=== PATIENT | female | born 1945 | race Caucasian/White ===

== ENCOUNTER 2022-02-05 00:15 | Inpatient (IN) | payer MEDICARE, SELFPAY ==
[2022-02-05] VITALS (32 sets, daily range): BP systolic 88–140; BP diastolic 42–82; PULSE 81–117; RESP 16–147; TEMP 36.6–37.2; O2SAT 94–99; BMI 20.6; BMI 21.1
--- NOTE | 2022-02-05 00:14 | EKG12_ITS ---
Test Reason : admit ekg Blood Pressure : / mmHG Vent. Rate : 096 BPM Atrial Rate : 394 BPM P-R Int : 000 ms QRS Dur : 066 ms QT Int : 342 ms P-R-T Axes : 000 -19 013 degrees QTc Int : 432 ms Atrial flutter with variable A-V block Anterior infarct , age undetermined ,CANNONT BE EXCLUDED Abnormal ECG SOMATIC/MOTION ARTIFACT Confirmed by DEMETRIO SETHI, CHRISTOPHER ([id number]), city editor SCOTT GARNICA ([id number]) on 02/06/2022 8:29:14 AM Referred By: Confirmed By:CHRISTOPHER ATKINSON MD
--- NOTE | 2022-02-05 00:19 | ECHOD_ITS ---
Reason For Study: AFIB/FLUTTER Procedure This was a 2D Doppler, Color Flow transthoracic echocardiogram. The study was technically difficult. Due to patient pain levels, left humerous fracture, unable to reposition for optimal scanning. PT was very uncomfortable. Exam performed portable in patient room. Left Ventricle Normal left ventricle. The estimated ejection fraction is 50-55 %. Right Ventricle Normal right ventricle. Normal systolic function. Atria The left atrium is moderately enlarged. Normal right atrium. Mitral Valve The mitral valve is structurally normal. No prolapse or stenosis seen. Tricuspid Valve Normal tricuspid valve. Aortic Valve Moderate diffuse aortic valve calcification. Mild (1+) aortic valve insufficiency. Pulmonic Valve The pulmonic valve is not well visualized. Great Vessels Normal aortic root. Pericardium/Pleural No pericardial effusion. MMode/2D Measurements & Calculations LVIDd: 4.5 cm IVSd: 1.1 cm Ao root diam: 3.3 cm LVIDs: 2.8 cm LVPWd: 1.3 cm RVDd: 3.4 cm FS: 36.7 % LAV(MOD-bp): 91.5 ml LVAd ap4: 26.3 cm2 LVAd ap2: 25.0 cm2 LAV(MOD-bp) Indexed: 54.1 ml/m2 LVLd ap4: 7.3 cm LVLd ap2: 7.7 cm LAV(MOD-sp2): 91.9 ml EDV(MOD-sp4): 79.1 ml EDV(MOD-sp2): 71.2 ml LAV(MOD-sp4): 91.1 ml EDV(sp4-el): 80.0 ml EDV(sp2-el): 68.8 ml LVAs ap4: 17.4 cm2 LVAs ap2: 16.7 cm2 LVLs ap4: 6.5 cm LVLs ap2: 7.1 cm ESV(MOD-sp4): 40.4 ml ESV(MOD-sp2): 34.1 ml ESV(sp4-el): 39.4 ml ESV(sp2-el): 33.2 ml EF(MOD-sp4): 48.9 % EF(MOD-sp2): 52.2 % EF(sp4-el): 50.7 % SV(MOD-sp4): 38.6 ml SV(MOD-sp2): 37.2 ml SV(sp4-el): 40.6 ml LA dimension(2D): 4.9 cm LA A4 area: 26.1 cm2 RA A4 area: 14.9 cm2 Doppler Measurements & Calculations MV E max sherly: 101.3 cm/sec Ao V2 max: 183.6 cm/sec LV V1 max: 86.6 cm/sec Ao max P.5 mmHg LV V1 max P.0 mmHg PA V2 max: 96.7 cm/sec TR max sheryl: 267.4 cm/sec TR max P.6 mmHg ECHO/Echo Complete Interpretation Summary The estimated ejection fraction is 50-55 %. Normal LV systolic function Mild AI Ordering Physician: Violet Patrick Referring Physician: Michael Phillips Performed By: Heather Alexandra RDCS, RVT
--- NOTE | 2022-02-05 00:20 | HP.PCM.HOS_ITS ---
HPI - General General Date of Admission: 02/05/22 Date of Service: 02/05/22 Chief Complaint: Fall, hip fracture- 1 day HPI Narrative CRISPIN MARSHALL, is a 76 F who presents above. Patient has past medical history of dementia with behavioral disturbances, osteoporosis, atrial fibrillation, on Coumadin, history of recurrent falls, who lives alone and has had family checking on her frequently. Patient recently had a fall about 2 months ago and fractured her left humerus. Patient at baseline is alert oriented to self. She is a direct transfer from [facility] ED. Patient is established with [facility] and was recommended to come to the [facility]. Patient had stated to the emergency physician in [facility] that she was trying to put on her nightgown when she lost her balance and fell. She had complained of pain all over her body. She was found to be in A. fib with RVR, confirmed with EKG. She received Cardizem bolus and was started on a drip. Heart rate was still uncontrolled. She received a second dose of Cardizem and Cardizem drip was continued. Patient stated that she has severe pain. Her vitals here show blood pressure 129/77, heart rate 101, respiratory 16, temperature 97.8 F, oxygen sat is 97% on room air. Blood work in [facility] showed WBC count of 11.1, Hb 12.7, platelet count 227, INR was 3.4, UA was unremarkable. Glucose 127, sodium was 145, potassium 4.5, chloride 107, bicarbonate 25, BUN 19, creatinine 1.20, previous creatinine was 1.13 calcium was 9.1, complement was 3.4, LFTs unremarkable lactic acid was 4.1, troponins were 62. CT of the abdomen and pelvis showed a subcapital comminuted superior laterally displaced fracture of the left femoral neck. Age-indeterminate mild height loss of L2 vertebral body without retropulsion or involvement of posterior elements. 1.8 cm enhancing mass in the right hepatic lobe of the liver. CT of the thorax, cervical spine, head were unremarkable. X-ray of the tibia-fibula, left forearm, left humerus and hand were also unremarkable [facility] Medical History (Updated 02/05/22 @ 01:[address] Violet Patrick MD) Chronic atrial fibrillation Dementia Hyperlipidemia Osteoporosis Allergy/AdvReac Type Severity Reaction Status Date / Time meloxicam [From Mobic] Allergy PT UNSURE Verified 02/05/22 00:18 OF REACTION amoxicillin [From Augmentin] AdvReac Other Verified 02/05/22 00:18 clavulanic acid AdvReac Other Verified 02/05/22 00:18 [From Augmentin] unable to obtain Surgical History (Updated 02/05/22 @ 01:[address] Violet Patrick MD) H/O bilateral cataract extraction H/O bilateral salpingo-oophorectomy History of breast biopsy History of dilatation and curettage History of hysterectomy History of right hip replacement History of tonsillectomy Social History (Updated 02/05/22 @ 01:[address] Violet Patrick MD) household members: none housing: house Smoking Status: Never smoker alcohol intake: never substance use type: does not use ROS Review of Systems ROS Unobtainable: due to encephalopathy Physical Exam Narrative Physical exam: General: Alert, Oriented to self, Cooperative, in moderate pain, restless HEENT: Atraumatic Oral: Moist Mucosa Neck: Supple Lungs: Diminished to auscultation Cardiovascular: HS I+II, irregular, tachycardic Abdomen: Bowel Sounds Present, Soft, Non Tender Extremities: No edema, tenderness over the left hip Skin: Multiple bruises all over the body Neurological: Grossly intact Psych/Mental Status: Appropriate Assessment & Plan Assessment/Plan (1) Subcapital fracture of left hip: (2) Atrial fibrillation with RVR: PLAN: Plan 1. Acute subcapital fracture of the femoral neck of the left hip, mechanical, traumatic In the setting of an elderly patient with history of osteoporosis, recurrent falls Admit to PCU, pain control, orthopedic consult PT/OT to evaluate and treat 2. A. fib with RVR patient known history of chronic atrial fibrillation Patient remains on Cardizem drip INR in [facility] was 3.4 We will check 2D echo, repeat INR, continue Cardizem drip, cardiology consult for preop cardiac risk stratification Check TSH, Mg 3. Suspected protein calorie malnutrition, operational risk consultant consulted 4. Dementia with behavioral disturbances, continue on Zyprexa Check QTC on EKG 5. Osteoporosis, continue alendronate, patient will need outpatient follow-up with endocrinology 6. Hyperlipidemia, continue statin 7. DVT prophylaxis?SCDs for now in anticipation of surgery I discussed and explained in details the various types of CODE STATUS-full code, DNR CCA, DNR CC. Patient's son who is her POA stated that patient will be DNR DO NOT RESUSCITATE, DO NOT INTUBATE. Time spent discussing CODE STATUS 17 minutes Charges/Coding Visit Charges Inpatient E&M: 21788 Init Hosp L3 Procedures Hospitalists Procedures: 98648 Advncd Care Plan 30 Min
--- NOTE | 2022-02-05 00:38 | NURSING ---
Spoke to mary Rosario states patient does not take Eliquis
[2022-02-05] MEDS: oxyCODONE 5 MG Tablet PO ×2 (01:00→05:34)
[2022-02-05] MEDS: Acetaminophen 500 MG Tablet 1000 MG PO ×2 (01:00→05:34)
[2022-02-05] MEDS: 0.9% Normal Saline 1,000 ML 75 ML IV ×2 (01:00→20:30)
--- NOTE | 2022-02-05 01:06 | EKG12_ITS ---
Test Reason : admit ekg Blood Pressure : / mmHG Vent. Rate : 107 BPM Atrial Rate : 000 BPM P-R Int : 000 ms QRS Dur : 062 ms QT Int : 324 ms P-R-T Axes : 000 -24 003 degrees QTc Int : 432 ms Somatic/Motion Artifact Atrial fibrillation with rapid ventricular response Septal infarct, age undetermined, cannot be excluded Abnormal ECG Confirmed by DEMETRIO SETHI, CHRISTOPHER ([id number]), production editor BARRY REYES ([id number]) on 02/08/2022 11:30:44 AM Referred By: Confirmed By:CHRISTOPHER ATKINSON MD
[2022-02-05 01:59] LABS: ALB/GLOB Ratio 1.1 RATIO (0.9-2.4); AST(SGOT) 36 U/L (15-37); Alanine Aminotransfer ALT/SGPT 16 U/L (13-56); Albumin, Serum 2.9 g/dL (3.2-5.0); Alkaline Phosphatase 80 U/L (45-117); Anion Gap 8 (5-15); BUN 18 mg/dL (7-18); BUN/Creat Ratio 20.5 RATIO (10-20); Calcium,Total 8.2 mg/dL (8.5-10.1); Chloride 114 mmol/L (98-107); Creatinine, Serum 0.88 mg/dL (0.55-1.02); EST Glomerular Filtration Rate 66 mL/min (>60); Est Glom Filt Rate - Afr Amer 80 mL/min (>60); Estimated Creatinine Clearance 50.99 ml/min; Globulin 2.6 g/dL (2.2-4.2); Glucose 145 mg/dL (74-106); Protein, Total 5.5 g/dL (6.4-8.2); Sodium Level 145 mmol/L (136-145)
[2022-02-05 02:01] LABS: Troponin-I HS 108 pg/mL (3.0-54.0)
[2022-02-05 02:04] LABS: Vitamin D,25 Hydroxy 18.8 ng/mL
[2022-02-05 04:14] LABS: Prothrombin Time (Protime)PT. 31.2 SECONDS (11.7-14.9)
[2022-02-05 04:17] LABS: Absolute Lymphocyte Count 0.96 X10^3/uL (0.83-4.51); Absolute Neutrophil Count 5.9 X10^3/uL (2.0-7.7); Basophil# 0.02 X10^3/uL; Basophil% 0.3 % (0-1); Hematocrit 30.5 % (37-47); Hemoglobin 10.1 g/dL (12.0-15.0); Lymphocyte # 0.96 X10^3/ul (0.83-4.51); Lymphocyte % 12.4 % (19-41); Mean Corp Hgb Conc 33.1 g/dL (32-36); Mean Corpuscular Hgb 33.4 pg (27.0-32.0); Mean Platelet Vol. 10.8 fl (6.2-12.0); Monocyte# 0.87 X10^3/uL; Monocyte% 11.2 % (0-10); NRBC Flagged by Analyzer 0 % (0-5); Neutrophil # 5.88 X10^3/uL (2.7-7.7); Neutrophil % 75.8 % (47-70); Platelet Count 168 K/mm3 (150-450); RBC Distribution Width CV 13.9 % (11.6-14.6); RBC Distribution Width SD 50.7 fl (35.1-43.9); Red Blood Count 3.02 M/mm3 (4.2-5.4); White Blood Count 7.8 K/mm3 (4.4-11.0)
[2022-02-05 04:31] LABS: ALB/GLOB Ratio 1.2 RATIO (0.9-2.4); AST(SGOT) 40 U/L (15-37); Alanine Aminotransfer ALT/SGPT 17 U/L (13-56); Albumin, Serum 2.7 g/dL (3.2-5.0); Alkaline Phosphatase 77 U/L (45-117); Anion Gap 7 (5-15); BUN 17 mg/dL (7-18); BUN/Creat Ratio 19.6 RATIO (10-20); Calcium,Total 7.7 mg/dL (8.5-10.1); Chloride 113 mmol/L (98-107); Creatinine, Serum 0.87 mg/dL (0.55-1.02); EST Glomerular Filtration Rate 67 mL/min (>60); Est Glom Filt Rate - Afr Amer 81 mL/min (>60); Estimated Creatinine Clearance 51.83 ml/min; Globulin 2.2 g/dL (2.2-4.2); Glucose 136 mg/dL (74-106); Potassium 4.1 mmol/L (3.5-5.1); Protein, Total 4.9 g/dL (6.4-8.2); Sodium Level 145 mmol/L (136-145)
[2022-02-05 04:43] LABS: Troponin-I HS 129 pg/mL (3.0-54.0)
[2022-02-05] MEDS: 0.9% Saline Lock 10 ML Syringe IV ×2 (05:34→06:45)
[2022-02-05 05:57] LABS: CPK Total, Creatine Kinase 857 U/L (26-192)
--- NOTE | 2022-02-05 07:41 | PCM.CONS.C ---
Assessment & Plan Assessment/Plan (1) Atrial fibrillation with RVR: PLAN: Pt remains in Afib. At home she is not on any rate medications. She remains on IV cardizem. May consider switching her over to PO. Will need to monitor BP. Coumadin is currently on hold as her INR was supratheraputic with anticipation of upcoming surgery. (2) Elevated troponin: PLAN: With pts elevated troponin, it has trended 108/129/129. EF is normal at 50-55%. She would like to obtain an echocardiogram. This is pending. Third troponin is pending. Suspect that this may be a type II event. HPI Consult Data Date of Consult: 02/14/22 HPI Narrative HPI Narrative: CRISPIN MARSHALL, is a 76 F who we were asked to consult on for a pre-operative clearance. Yesterday pt was was seen at [facility] ER for a fall. She fractured her left hip. Since she was established with [facility] she was transferred to [facility]. Pt does have a hx of Afib and is on coumadin. Yesterday she was noted to be in Afib with RVR. She received a Cardizem bolus and was started on a drip. Initial troponin was 67 at [place], it has since trended to 108, 129. Her Hgb is 10. Yesterday her INR was 3.4, today it is 3.0. Pt is a poor historian. Per Nurse she lives at home and notes son is trying to get her into a NH that her resides in. [facility] Medical History Chronic atrial fibrillation Dementia Hyperlipidemia Osteoporosis Vitamin D deficiency Home Medications alendronate 70 mg tablet 70 mg PO QWEEK bones 02/05/22 [History Last Taken Unknown] atorvastatin 20 mg tablet 20 mg PO DAILY cholesterol 02/05/22 [History Last Taken Unknown] fluticasone propionate 50 mcg/actuation nasal spray,suspension 2 spray intranasal DAILY PRN Congestion 02/05/22 [History Last Taken Unknown] warfarin 2 mg tablet 2 mg PO DAILY blood thinner 02/05/22 [History Last Taken Unknown] acetaminophen 325 mg capsule (Tylenol) 650 mg PO Q4H PRN Pain 1-10/fever 30 days #10 caps 02/13/22 [Rx Last Taken Unknown] amiodarone 200 mg tablet 200 mg PO BID heart 02/13/22 [History Last Taken Unknown] amiodarone 200 mg tablet 200 mg PO DAILY heart 02/13/22 [History Last Taken Unknown] ergocalciferol (vitamin D2) 1,250 mcg (50,000 unit) capsule (Vitamin D2) 1,250 mcg PO Q7D bone 02/13/22 [History Last Taken Unknown] metoprolol tartrate 100 mg tablet 100 mg PO BID BP 02/13/22 [History Last Taken Unknown] olanzapine 10 mg tablet 20 mg PO HS Check with primary doctor 02/13/22 [History Last Taken Unknown] pantoprazole 40 mg tablet,delayed release 40 mg PO DAILY reflux 02/13/22 [History Last Taken Unknown] sennosides 8.6 mg-docusate sodium 50 mg tablet (Stool Softener-Stimulant Laxative) 2 tab PO BID stool softeners 02/13/22 [History Last Taken Unknown] warfarin 1 mg tablet (Jantoven) 1 mg PO 1700 blood thinner 02/13/22 [History Last Taken Unknown] Allergy/AdvReac Type Severity Reaction Status Date / Time meloxicam [From Mobic] Allergy PT UNSURE Verified 02/05/22 00:18 OF REACTION amoxicillin [From Augmentin] AdvReac Other Verified 02/05/22 00:18 clavulanic acid AdvReac Other Verified 02/05/22 00:18 [From Augmentin] Family History no significant family his Surgical History H/O bilateral cataract extraction H/O bilateral salpingo-oophorectomy History of breast biopsy History of dilatation and curettage History of hysterectomy History of right hip replacement History of tonsillectomy Social History household members: none housing: house Smoking Status: Never smoker alcohol intake: never substance use type: does not use Physical Exam Const alert and no apparent distress General Appearance: frail Orientation / Consciousness: oriented to person HEENT normocephalic, head/scalp atraumatic, hearing grossly normal bilaterally, external ears normal, external nose normal and moist oral mucous membranes Eyes PERRL, EOMs intact bilaterally, conjunctivae normal and no scleral icterus Neck no lymphadenopathy, supple and no JVD Resp clear to auscultation bilaterally Cardio regular rate, S1 normal heart sound, S2 normal heart sound, no murmurs, no rub, no gallops, no clicks, no JVD and peripheral pulses 2+ throughout Rhythm: abnormal rhythm irregularly irregular GI normal to inspection, nondistended, normoactive bowel sounds, soft to palpation, non-tender and non-distended Extremity normal to inspection, normal capillary refill, no clubbing, cyanosis or edema and no pedal edema Extremity Narrative: right arm in cast Neuro CN's II-XII intact bilaterally, moves all extremities and no focal motor deficits Psych cooperative Risk Stratification Risk Stratification Applicable: No Objective Data Vital Signs: Vital Signs Temp Pulse Resp BP Pulse Ox O2 Del Method 98.8 F 86 18 97/54 L 95 Room Air 02/05/22 06:00 02/05/22 07:00 02/05/22 07:00 02/05/22 07:00 02/05/22 06:00 02/05/22 06:00 Oxygen Delivery Method Room Air Weight: 138 lb 3.677 oz Body Mass Index (BMI) 20.6 Intake & Output: Intake and Output for Last 24 Hours 02/03/22 02/04/22 02/05/22 23:59 23:59 23:59 Intake Total 446 / 446 Output Total 250 / 250 Balance 196 / 196 Lab / Micro Data Result Diagrams: 02/13/22 05:15 02/13/22 05:15 Labs: Laboratory Results - last 24 hr 02/05/22 01:27: Sodium 145, Potassium 4.0, Chloride 114 H, Carbon Dioxide 23.0, Anion Gap 8, BUN 18, Creatinine 0.88, Estim Creat Clear Calc 50.99, Est GFR (MDRD) Af Amer 80, Est GFR (MDRD) Non-Af 66, BUN/Creatinine Ratio 20.5 H, Glucose 145 H, Calcium 8.2 L, Total Bilirubin 1.30 H, AST 36, ALT 16, Alkaline Phosphatase 80, Total Protein 5.5 L, Albumin 2.9 L, Globulin 2.6, Albumin/Globulin Ratio 1.1 02/05/22 01:27: Vitamin D 25-Hydroxy 18.8 02/05/22 01:27: Troponin I High Sens 108 H 02/05/22 03:48: WBC 7.8, RBC 3.02 L, Hgb 10.1 L, Hct 30.5 L, MCV 101.0 H, MCH 33.4 H, MCHC 33.1, RDW Std Deviation 50.7 H, RDW Coeff of Dorota 13.9, Plt Count 168, MPV 10.8, Immature Gran % (Auto) 0.300, Neut % (Auto) 75.8 H, Lymph % (Auto) 12.4 L, [place] % (Auto) 11.2 H, Eos % (Auto) 0.0, Baso % (Auto) 0.3, Absolute Neuts (auto) 5.9, Absolute Lymphs (auto) 0.96, Nucleated RBC % 0 02/05/22 03:48: Sodium 145, Potassium 4.1, Chloride 113 H, Carbon Dioxide 25.0, Anion Gap 7, BUN 17, Creatinine 0.87, Estim Creat Clear Calc 51.83, Est GFR (MDRD) Af Amer 81, Est GFR (MDRD) Non-Af 67, BUN/Creatinine Ratio 19.6, Glucose 136 H, Calcium 7.7 L, Total Bilirubin 1.20 H, AST 40 H, ALT 17, Alkaline Phosphatase 77, Total Protein 4.9 L, Albumin 2.7 L, Globulin 2.2, Albumin/Globulin Ratio 1.2 02/05/22 03:48: PT 31.2 H, INR 3.0 02/05/22 03:48: Total Creatine Kinase 857 H 02/05/22 03:48: Troponin I High Sens 129 H* 02/05/22 03:48: Blood Type A POSITIVE, Antibody Screen NEGATIVE Micro: Microbiology 02/05/22 01:10 Nasal Secretion SARS-CoV-2 Antigen (Rapid) - Final Cardiology Labs/Tests 02/05/22 01:27: Sodium 145, Potassium 4.0, Chloride 114 H, Carbon Dioxide 23.0, Anion Gap 8, BUN 18, Creatinine 0.88, Est GFR (MDRD) Af Amer 80, Est GFR (MDRD) Non-Af 66, BUN/Creatinine Ratio 20.5 H, Glucose 145 H, Calcium 8.2 L, Total Bilirubin 1.30 H 02/05/22 03:48: WBC 7.8, RBC 3.02 L, Hgb 10.1 L, Hct 30.5 L, MCV 101.0 H, MCH 33.4 H, MCHC 33.1, Plt Count 168, MPV 10.8, Immature Gran % (Auto) 0.300, Neut % (Auto) 75.8 H, Lymph % (Auto) 12.4 L, [place] % (Auto) 11.2 H, Eos % (Auto) 0.0, Baso % (Auto) 0.3, Absolute Neuts (auto) 5.9, Nucleated RBC % 0 02/05/22 03:48: Sodium 145, Potassium 4.1, Chloride 113 H, Carbon Dioxide 25.0, Anion Gap 7, BUN 17, Creatinine 0.87, Est GFR (MDRD) Af Amer 81, Est GFR (MDRD) Non-Af 67, BUN/Creatinine Ratio 19.6, Glucose 136 H, Calcium 7.7 L, Total Bilirubin 1.20 H 02/05/22 03:48: PT 31.2 H, INR 3.0 Rhythm: Afib HR 86
--- NOTE | 2022-02-05 08:00 | HIP_PTH ---
PATIENT: CRISPIN MARSHALL LOC: [facility] U#:[id number] AGE/SX: 76/F ROOM: [facility] RE02/05/[address]: Dr. Sierra Duran MD : 1945 BED: 1 DIS: 02/13/2022 SPEC #: [id number] RECD: 02/08/22 10:57 STATUS: RANDY REQ #: [id number] PHIL: 02/05/22 08:[address]: Tae Potter DEPT: SURGICAL PATHOLOGY RECD BY: Renee Saunders ENTERED: 02/08/22 13:04 SP TYPE: TOTAL HIP OTHR DR: Garima Lyons, MD Dr. Violet Martel Dr., MD Dr. Arshad Rehan, MD Dr. Brendan Duffy, MD Dr. Bhava Reddy, MD Dr. Cyril Ofori, MD Dr. Emile Daoud, MD Dr. Eric Jopperi, DO Dr. Eric Lo, MD Dr. Farouk Belal, MD Dr. Kathryn Lee, DO Dr. Mikhail Kirnus, MD Dr. Mihail Paxos, MD Dr. Nagapradee Nagajothi, MD Dr. Paul Moodispaw, MD Dr. Sharan Rufus, MD Dr. Steven Widmer, MD Dr. Wisam Martini, MD John H Roof, JANNETC INOCENCIA Lopez PA Tissues: Hip, NOS Procedures: Decalcification bone/plaque Surgery Specimen Level IV Comments: @ Ordering doctor for DEC edited from to @ by RGOOD at 02/08/22 1418 @ Ordering doctor for SUIV edited from to @ by CARLTON at 02/08/22 1418 @ Submitting doctor edited from to @ stephon VINCENT at 02/08/22 1418 HEADER OPERATION: Left hip hemiarthroplasty PRE-OP DIAGNOSIS: Subcapital fracture of left hip TISSUE SUBMITTED: Bone and tissue left hip MICROSCOPIC DIAGNOSIS Bone and tissue of left hip, total hip resection: Consistent with organizing fracture callus. Mild synovial hyperplasia. Focal degenerative changes of articular surface. AM:cuco 02/11/2022 MICROSCOPIC DESCRIPTION Slides are reviewed. GROSS DESCRIPTION Received is one container labeled with the patient's name and designated bone and tissue left hip. The specimen consists of a yin femoral head measuring 4 x 4.5 x 3 cm. The articular surface shows focal erosion. Resection margin is irregular and hemorrhagic. Also attached to the femoral head is a piece of soft tissue measuring 2.5 x 1.5 x 0.3 cm. Elastic Attacher Overlock sections are submitted in three cassettes as follows: 1 - soft tissue, 2 & 3 - femoral head after decalcification. / SJ:cuco 02/08/2022 TC:5 CPT: 74852, 17999
--- NOTE | 2022-02-05 08:05 | RAD_ITS ---
INDICATION: Left hip fracture EXAMINATION/TECHNIQUE: X-RAY - LEFT XR Hip Unilateral with Pelvis when performed; 2-3 Views 4 VIEWS COMPARISON: 02/05/2022. FINDINGS: Fracture of the proximal left femur is visualized either subcapital or transcervical neck fracture superior displacement of the distal fracture fragment is visualized, no evidence of lucency in the intertrochanteric region is seen. Increased density visualized within the proximal femoral metaphysis. No evidence of comminuted bone fragments in the adjacent soft tissues. No evidence of other fractures of the pelvis. Degenerative bone changes are seen. Unremarkable right hip prosthesis. RAD/HIP, UNI W/ Pelvis 2-3 Views IMPRESSION: Fracture of the proximal left femur either subcapital or transcervical neck fracture Electronically Signed: Roman Lee MD at 8:43 EDT ,
[2022-02-05 08:16] LABS: Thyroid Stim Hormone (TSH) 2.29 uIU/mL (0.358-3.74); Troponin-I HS 129 pg/mL (3.0-54.0)
[2022-02-05 09:41] LABS: International Normalized Ratio 1.4; Prothrombin Time (Protime)PT. 16.6 SECONDS (11.7-14.9)
--- NOTE | 2022-02-05 10:41 | PN.HOSP_ITS ---
Subjective Subjective Patient seen and examined. Patient lying in bed undergoing echocardiogram. Patient tentatively scheduled for surgery later today however awaiting cardiac clearance. Objective Data Objective Data Vital Signs: Vital Signs Temp Pulse Resp BP Pulse Ox O2 Del Method 98.8 F 86 18 97/54 L 95 Room Air 02/05/22 06:00 02/05/22 07:00 02/05/22 07:00 02/05/22 07:00 02/05/22 06:00 02/05/22 06:00 Oxygen Delivery Method Room Air Weight: 138 lb 3.677 oz Body Mass Index (BMI) 20.6 Intake & Output: Intake and Output for Last 24 Hours 02/03/22 02/04/22 02/05/22 23:59 23:59 23:59 Intake Total 557 / 557 Output Total 250 / 250 Balance 307 / 307 Lab / Micro Data Result Diagrams: 02/05/22 03:48 02/05/22 03:48 Labs: Laboratory Results - last 24 hr 02/05/22 01:27: Sodium 145, Potassium 4.0, Chloride 114 H, Carbon Dioxide 23.0, Anion Gap 8, BUN 18, Creatinine 0.88, Estim Creat Clear Calc 50.99, Est GFR (MDRD) Af Amer 80, Est GFR (MDRD) Non-Af 66, BUN/Creatinine Ratio 20.5 H, Glucose 145 H, Calcium 8.2 L, Total Bilirubin 1.30 H, AST 36, ALT 16, Alkaline Phosphatase 80, Total Protein 5.5 L, Albumin 2.9 L, Globulin 2.6, Albumin/Globulin Ratio 1.1 02/05/22 01:27: Vitamin D 25-Hydroxy 18.8 02/05/22 01:27: Troponin I High Sens 108 H 02/05/22 03:48: WBC 7.8, RBC 3.02 L, Hgb 10.1 L, Hct 30.5 L, MCV 101.0 H, MCH 33.4 H, MCHC 33.1, RDW Std Deviation 50.7 H, RDW Coeff of Dorota 13.9, Plt Count 168, MPV 10.8, Immature Gran % (Auto) 0.300, Neut % (Auto) 75.8 H, Lymph % (Auto) 12.4 L, [place] % (Auto) 11.2 H, Eos % (Auto) 0.0, Baso % (Auto) 0.3, Absolute Neuts (auto) 5.9, Absolute Lymphs (auto) 0.96, Nucleated RBC % 0 02/05/22 03:48: Sodium 145, Potassium 4.1, Chloride 113 H, Carbon Dioxide 25.0, Anion Gap 7, BUN 17, Creatinine 0.87, Estim Creat Clear Calc 51.83, Est GFR (MDRD) Af Amer 81, Est GFR (MDRD) Non-Af 67, BUN/Creatinine Ratio 19.6, Glucose 136 H, Calcium 7.7 L, Total Bilirubin 1.20 H, AST 40 H, ALT 17, Alkaline Phosph atase 77, Total Protein 4.9 L, Albumin 2.7 L, Globulin 2.2, Albumin/Globulin Ratio 1.2 02/05/22 03:48: PT 31.2 H, INR 3.0 02/05/22 03:48: Total Creatine Kinase 857 H 02/05/22 03:48: Troponin I High Sens 129 H* 02/05/22 03:48: Blood Type A POSITIVE, Antibody Screen NEGATIVE 02/05/22 07:38: Magnesium 2.0, Troponin I High Sens 129 H*, TSH 2.29 02/05/22 09:12: PT 16.6 H, INR 1.4 Micro: Microbiology 02/05/22 01:10 Nasal Secretion SARS-CoV-2 Antigen (Rapid) - Final Radiography Diagnostic Testing: Radiology Impression Hip/Pelvis X-Ray 02/05/22 08:05 IMPRESSION: Fracture of the proximal left femur either subcapital or transcervical neck fracture Electronically Signed: Roman Lee MD at 8:43 EDT Reading Location ID and State: [facility] / [place] Tel , Service support , Physical Exam Const alert General Appearance: cooperative Orientation / Consciousness: oriented to person HEENT head/scalp atraumatic and moist oral mucous membranes Head and Scalp: normocephalic Eyes conjunctivae normal and no scleral icterus Neck no lymphadenopathy and supple Resp normal respiratory effort and clear to auscultation bilaterally Cardio regular rate, S1 normal heart sound, S2 normal heart sound and peripheral pulses 2+ throughout Cardio Narrative: AFib with RVR Rate: tachycardic Rhythm: abnormal rhythm irregularly irregular GI normal to inspection, nondistended, normoactive bowel sounds, soft to palpation and non-tender Extremity Extremity Narrative: cast to right arm intact, left hip tender with palpation Neuro moves all extremities, no focal motor deficits and no sensory deficits noted Psych cooperative Activity / Motor Behavior: fidgetting Assessment & Plan Assessment/Plan (1) Subcapital fracture of left hip: (2) Atrial fibrillation with RVR: PLAN: Plan 1. Acute subcapital fracture of the femoral neck of the left hip secondary to a mechanical fall -Orthopedics following, scheduled for surgery later today pending cardiology clearance -PT and OT following -Pain management regimen ordered 2. Afib with RVR -Continue cardizem drip -INR 3.4 upon admission, patient received KCentra and Vitamin K. Repeat INR 1.4. -Cardiology following for surgical clearance. -Echocardiogram pending 3. Suspected protein calorie malnutrition -Nutrition consulted 4. Dementia with behavioral disturbances -Continue Zyprexa -EKG daily for QTC monitoring 5. Osteoporosis -Continue alendronate -Follow up with endocrinology outpatient 6. Hyperlipidemia -Continue Statin DVT prophylaxis- SCD This patient was seen by Oneyda Gonzalez NP-C under the supervision of Dr. Jarquin. 13 minutes spent in clinical coordination of patient's plan of care.
--- NOTE | 2022-02-05 15:44 | PCM.CONS.GEN ---
Assessment & Plan Assessment/Plan (1) Atrial fibrillation with RVR: (2) Subcapital fracture of left hip: PLAN: Natural history of the disease process and treatment options were discussed with patient's family and power of deputy commonwealth's attorney. Patient has limited understanding and so the majority of the conversation was directed at the power of deputy commonwealth's attorney over the phone. He was not available in person. He was agreeable to the phone conversation. We discussed proceeding with a hemiarthroplasty is an appropriate treatment option for both palliative and functional treatment. Patient would benefit greatly as she is in pain with a hip fracture. Based on my review of the x-rays I did explain to the family that she may have had this hip fracture for longer than the last 24 hours and could be related to any of her falls over the last couple of weeks. May be adding to her instability and pain. Nonoperative treatment was briefly discussed however not recommended at this time as the family was wanting relief for the mothers pain and dysfunction. Risks and benefits of the procedure were discussed the patient including but not limited to the general risk of anesthesia which does include loss of life as a stress on her heart and lungs as well as mental status. Mental status changes related anesthesia, blood loss, DVTs, PEs, nervous damage, infection dislocations and leg length discrepancies as well as intraoperative fractures. Family demonstrates an understanding wish to proceed with the left hip hemiarthroplasty. Patient is NPO. Antibiotics ordered on-call to the operating room. INR has been reversed. We will proceed with surgery this evening. [facility] Office: (3) Elevated troponin: (4) Dementia: HPI Consult Data Date of Consult: 02/05/22 HPI Narrative Reason for Consultation: Left hip fracture HPI Narrative: CRISPIN MARSHALL, is a 76 F with significant medical history including severe dementia and atrial fibrillation who presents with left hip pain. She is a very poor historian. Her mental status limits much of her history. She does report falling. I did speak with her son on the phone who is her power of deputy commonwealth's attorney. He reports that she has had multiple falls over the last 4 weeks. She is been treated for hand fracture at the office of [facility] where I am a physician. They wish to continue care with us however, based on her cardiac condition she was not felt to be a adequate patient for the emergency department for which she originally presented. She was transferred to [facility] for this reason. She reports pain in her left thigh. Other than that she gives minimal history. Her son states that she lives at home alone they do check on her frequently. He has been trying to get her placed due to her recent falls. He also notes she seen a significant decline in her mental status over the last couple of months. Additionally, her PT/INR was elevated at 3.0 this morning and is down to 1.4 last check. Her son also reports that she does not use a walker or a cane despite her recent falls. [facility] Medical History (Updated 02/05/22 @ 15:[address] Tae Potter MD) Chronic atrial fibrillation Dementia Hyperlipidemia Osteoporosis Medical History unable to obtain unable to obtain (Patient unable to provide new history) Home Medications alendronate 70 mg tablet 70 mg PO QWEEK Check with primary doctor 02/05/22 [History Last Taken Unknown] atorvastatin 20 mg tablet 20 mg PO DAILY cholesterol 02/05/22 [History Last Taken Unknown] fluticasone propionate 50 mcg/actuation nasal spray,suspension 2 spray intranasal DAILY PRN Congestion 02/05/22 [History Last Taken Unknown] olanzapine 5 mg tablet 5 mg PO DAILY Check with primary doctor 02/05/22 [History Last Taken Unknown] omeprazole 40 mg capsule,delayed release 40 mg PO DAILY gerd 02/05/22 [History Last Taken Unknown] warfarin 2 mg tablet 2 mg PO DAILY blood thinner 02/05/22 [History Last Taken Unknown] Allergy/AdvReac Type Severity Reaction Status Date / Time meloxicam [From Mobic] Allergy PT UNSURE Verified 02/05/22 00:18 OF REACTION amoxicillin [From Augmentin] AdvReac Other Verified 02/05/22 00:18 clavulanic acid AdvReac Other Verified 02/05/22 00:18 [From Augmentin] Family History unable to obtain no significant family history Surgical History H/O bilateral cataract extraction H/O bilateral salpingo-oophorectomy History of breast biopsy History of dilatation and curettage History of hysterectomy History of right hip replacement History of tonsillectomy Surgical History unable to obtain unable to obtain (Patient unable to provide additional history) Social History household members: none housing: house Smoking Status: Never smoker alcohol intake: never substance use type: does not use ROS Review of Systems ROS Unobtainable: due to mental condition Physical Exam Narrative Physical exam is limited secondary to patient's mental status. Const Constitutional Narrative: Patient is alert and briefly answers questions. Usually with a yes or no. Unable to elaborate on specifics. HEENT normocephalic Eyes PERRL Neck No nuchal rigidity Resp normal respiratory effort Cardio Cardio Narrative: Regular pulse rate GI non-distended Extremity Extremity Narrative: Left lower extremity: Skin clean, dry, and intact. Limb is shortened and externally rotated Motor is intact dorsiflexion, EHL and plantar flexion. Sensation is intact to light touch saphenous, chad,l superficial peroneal, deep peroneal and tibial distributions. Calves are soft and supple. Left upper extremity: Large ecchymosis over lateral shoulder. Medical Records Data Attestation: I reviewed the patient's medical records Lab / Micro Data Attestation: I reviewed the patient's lab results. Result Diagrams: 02/05/22 03:48 02/05/22 03:48 Labs: Laboratory Results - last 24 hr 02/05/22 01:27: Sodium 145, Potassium 4.0, Chloride 114 H, Carbon Dioxide 23.0, Anion Gap 8, BUN 18, Creatinine 0.88, Estim Creat Clear Calc 50.99, Est GFR (MDRD) Af Amer 80, Est GFR (MDRD) Non-Af 66, BUN/Creatinine Ratio 20.5 H, Glucose 145 H, Calcium 8.2 L, Total Bilirubin 1.30 H, AST 36, ALT 16, Alkaline Phosphatase 80, Total Protein 5.5 L, Albumin 2.9 L, Globulin 2.6, Albumin/Globulin Ratio 1.1 02/05/22 01:27: Vitamin D 25-Hydroxy 18.8 02/05/22 01:27: Troponin I High Sens 108 H 02/05/22 03:48: WBC 7.8, RBC 3.02 L, Hgb 10.1 L, Hct 30.5 L, MCV 101.0 H, MCH 33.4 H, MCHC 33.1, RDW Std Deviation 50.7 H, RDW Coeff of Dorota 13.9, Plt Count 168, MPV 10.8, Immature Gran % (Auto) 0.300, Neut % (Auto) 75.8 H, Lymph % (Auto) 12.4 L, [place] % (Auto) 11.2 H, Eos % (Auto) 0.0, Baso % (Auto) 0.3, Absolute Neuts (auto) 5.9, Absolute Lymphs (auto) 0.96, Nucleated RBC % 0 02/05/22 03:48: Sodium 145, Potassium 4.1, Chloride 113 H, Carbon Dioxide 25.0, Anion Gap 7, BUN 17, Creatinine 0.87, Estim Creat Clear Calc 51.83, Est GFR (MDRD) Af Amer 81, Est GFR (MDRD) Non-Af 67, BUN/Creatinine Ratio 19.6, Glucose 136 H, Calcium 7.7 L, Total Bilirubin 1.20 H, AST 40 H, ALT 17, Alkaline Phosphatase 77, Total Protein 4.9 L, Albumin 2.7 L, Globulin 2.2, Albumin/Globulin Ratio 1.2 02/05/22 03:48: PT 31.2 H, INR 3.0 02/05/22 03:48: Total Creatine Kinase 857 H 02/05/22 03:48: Troponin I High Sens 129 H* 02/05/22 03:48: Blood Type A POSITIVE, Antibody Screen NEGATIVE 02/05/22 07:38: Magnesium 2.0, Troponin I High Sens 129 H*, TSH 2.29 02/05/22 09:12: PT 16.6 H, INR 1.4 Micro: Microbiology 02/05/22 01:10 Nasal Secretion SARS-CoV-2 Antigen (Rapid) - Final Radiology Impression Echocardiogram 02/05/22 00:19 Interpretation Summary The estimated ejection fraction is 50-55 %. Normal LV systolic function Mild AI Ordering Physician: Violet Patrick Referring Physician: Michael Phillips Performed By: Heather Alexandra, DICK, RVT Hip/Pelvis X-Ray 02/05/22 08:05 IMPRESSION: Fracture of the proximal left femur either subcapital or transcervical neck fracture Electronically Signed: Roman Lee MD at 8:43 EDT , Outside imaging was also reviewed. Bilateral shoulders are without fracture. Forearms without fracture.
[2022-02-05] MEDS: Cefazolin 2 GM in 0.9% Normal Saline 100 ML IV (15:48)
--- NOTE | 2022-02-05 15:50 | RAD_ITS ---
STUDY: INTRAOPERATIVE FLUOROSCOPY TECHNIQUE: The examination was performed with referring physician in attendance. Under fluoroscopic observation, fluoroscopic images were obtained. Radiologist was not present for the study. Radiologist did not perform the procedure. This dictation is for documentation of the radiation dosage only. There is no interpretation of the images. TOTAL NUMBER OF IMAGES: 1 COMPARISON: None RADIATION DOSE: 1 mGy FLUOROSCOPY TIME: 10.2 seconds REASON FOR EXAM: CARMELITA ARTHROPLASTY Female, 76 years old. FINDINGS: Total hip arthroplasty. RAD/Hip Min 2 Views (Portable) IMPRESSION: Fluoroscopic assistance images were obtained. Dictation for documentation purposes only. Electronically Signed: Moris Hoffmann MD at 18:30 EDT ,
--- NOTE | 2022-02-05 17:14 | OP.PCM_ITS ---
Report of Operation Date of Procedure: 02/05/22 Pre-Operative Diagnosis: Left hip comminuted subcapital femoral neck fracture Post-Operative Diagnosis: Left hip comminuted subcapital femoral neck fracture Surgery/Procedure Performed:: Left hip hemiarthroplasty Description of Surgical Findings:: Stable reduction. Indeterminate fracture age. Surgeon: Tae Potter train brake operator: Nina Kenyon Type of Anesthesia: General Anesthesiologist: Susan Benson Special Medications: Ancef Specimen's removed: Femoral head Estimated Blood Loss (mL): 200 Fluids Replaced: 700 mL crystalloid Description of Procedure: Components used: 1. Insignia Patti high offset size 4 stem 2. Patti cobalt-chromium Unitrax 47 mm femoral head with -4 mm sleeve Brief history operative indications: 76-year-old female with severe dementia lives home alone sustained a fall. Had age-indeterminate left subcapital femoral neck fracture. Patient was stabilized for surgery. Consent was obtained from power of ip technology transactions attorney. Risk and benefits as noted in the consultation were discussed the patient. Surgical intervention was planned for left hip hemiarthroplasty and all parties agreed. Procedure: On the date of procedure the patient's L hip was marked in the preoperative area. Patient was then taken back to the operating room where anesthesia assumed control of the C-spine and airway and administered anesthetic. Patient was transferred to the operating table and placed in the supine position. The hips were placed the break of the bed and a bump was placed in the sacrum. The L lower extremity was then prepped out in a sterile fashion using chlorhexidine while the surgeon scrubbed. Upon reentering the room the L lower extremity was draped in the standard orthopedic fashion and the incision was marked. A timeout was called and everyone agreed upon the side, the site, the procedure be performed, antibody given, and patient's identity. At this time incision was made through skin, subcutaneous tissue, and fat down to fascia. The fascia was then incised and the TFL was retracted laterally. A retractor was placed on the lateral border of the femoral neck. Attention was directed to the inferior portion of the approach and all crossing vessels were identified and appropriately coagulated. A retractor was then placed on the medial portion of the femoral neck. The anterior capsule was then cleared of all soft tissue and then H shaped capsulotomy was made. The retractors were then placed inside the capsule. The femoral neck was identified and a cleanup cut was made. At this time a power corkscrew was used to remove the femoral head. The femoral head was measures and a 47 mm bipolar component was selected. Soft tissue releases on the medial and lateral femoral neck were appropriately done, the leg was externally rotated and lateralized. A Lebron retractor was placed medially and proximally to the greater trochanter this allowed appropriate visualization and exposure of the femoral canal. Rongeour was then used to remove excess lateral bone. A canal finder and entry broach were used to open the proximal canal. Once we verified we were down the femoral canal we subsequently broached up to a size 4 femur. The appropriate neck was placed in the previously selected head was trialed with a -4mm neck. Traction was pulled and the hip was reduced with internal rotation. Once it was appropriately reduced and stability was checked. There was minimal shuck, equal leg lengths and appropriate stability with hyperextension and external rotation as well as with 90? flexion and internal rotation. The trial components were then dislocated the proximal femur was again exposed and the components were removed from the wound. The final components were verified and opened. The wound was copiously irrigated out with normal saline. The acetabulum was checked for any residual debris. The final components were placed and impacted. Traction and internal rotation were again used to reduce the hip. After adequate reduction the hip remained stable with appropriate leg lengths. The wound was then copiously irrigated with normal saline once more, and hemostasis was obtained. Closure was then done using #1 Vicryl runner to close the fascia. A 2-0 Vicryl runner was used to close the subcutaneous skin. A 3-0 Monocryl barbed suture and Steri-Strips were used for final skin closure. A Silverlon dressing was placed. Patient was awakened by anesthesia and transferred to the [facility]. Patient was then transferred to the PACU for recovery. Postoperative plan: Patient will get 24 hours postop antibiotics. Patient will get in-house physical therapy and will be weight-bear as tolerated. Patient will follow up in office in 2 weeks for a wound check and x-rays. Patient will resume Coumadin postoperatively Complications No intraoperative complications Admit VTE Documentation VTE Present on Admission: No VTE Mechan Device Prophylaxis: SCD's and Thigh High DECLAN Hose VTE Pharm Prophylaxis ordered?: Yes
--- NOTE | 2022-02-05 17:49 | RAD_ITS ---
STUDY: X-RAY - PELVIS AND LEFT HIP REASON FOR EXAM: Female, 76 years old. Post Op -- AP both hips on single rocky/lateral of op hip PACU TECHNIQUE: XR Hip Unilateral with Pelvis when performed; 2-3 Views COMPARISON: None. FINDINGS: There is no fracture or dislocation. There is anatomic alignment. The soft tissue planes are preserved. Total hip arthroplasty. There is an air-fluid level seen in the operative site. Joint space is preserved. Subcutaneous air is noted. RAD/Hip Min 2 Views (Portable) IMPRESSION: Successful total hip arthroplasty. Electronically Signed: Moris Hoffmann MD at 18:31 EDT ,
[2022-02-05] MEDS: OLANZapine 5 MG/TAB TAB.RAPDIS PO (18:32)
[2022-02-05] MEDS: Senna/Docusate Sodium 1 Tablet 2 TABLET PO (18:32)
[2022-02-05] MEDS: Pantoprazole Sodium 40 MG Tablet PO (18:32)
[2022-02-05] MEDS: Morphine 2 MG/ML Syringe IV (21:07)
[2022-02-06] VITALS (34 sets, daily range): BP systolic 97–148; BP diastolic 56–86; PULSE 68–132; RESP 16–20; TEMP 36.6–37.3; O2SAT 91–97; BMI 21.1
[2022-02-06] MEDS: Cefazolin 1 GM/50 ML BAG IV ×2 (00:13→11:04)
[2022-02-06] MEDS: Morphine 2 MG/ML Syringe IV (01:06)
--- NOTE | 2022-02-06 03:36 | NURSING ---
This rn managing cardizem gtt. Lesly remains pts primary nurse.
[2022-02-06 06:12] LABS: Absolute Lymphocyte Count 0.87 X10^3/uL (0.83-4.51); Absolute Neutrophil Count 5.6 X10^3/uL (2.0-7.7); Basophil# 0.02 X10^3/uL; Basophil% 0.3 % (0-1); Hematocrit 27.9 % (37-47); Lymphocyte # 0.87 X10^3/ul (0.83-4.51); Lymphocyte % 12.1 % (19-41); Mean Corp Hgb Conc 32.3 g/dL (32-36); Mean Corpuscular Hgb 33.1 pg (27.0-32.0); Mean Corpuscular Volume 102.6 fL (81-99); Mean Platelet Vol. 10.6 fl (6.2-12.0); Monocyte# 0.66 X10^3/uL; Monocyte% 9.2 % (0-10); NRBC Flagged by Analyzer 0 % (0-5); Neutrophil # 5.61 X10^3/uL (2.7-7.7); Neutrophil % 78.1 % (47-70); Platelet Count 114 K/mm3 (150-450); RBC Distribution Width CV 14.1 % (11.6-14.6); Red Blood Count 2.72 M/mm3 (4.2-5.4); White Blood Count 7.2 K/mm3 (4.4-11.0)
[2022-02-06 06:26] LABS: International Normalized Ratio 1.3; Prothrombin Time (Protime)PT. 15.4 SECONDS (11.7-14.9)
[2022-02-06 06:49] LABS: AST(SGOT) 64 U/L (15-37); Alanine Aminotransfer ALT/SGPT 20 U/L (13-56); Albumin, Serum 2.4 g/dL (3.2-5.0); Alkaline Phosphatase 68 U/L (45-117); Anion Gap 5 (5-15); BUN 14 mg/dL (7-18); BUN/Creat Ratio 20.6 RATIO (10-20); Calcium,Total 7.6 mg/dL (8.5-10.1); Chloride 116 mmol/L (98-107); Creatinine, Serum 0.68 mg/dL (0.55-1.02); EST Glomerular Filtration Rate 89 mL/min (>60); Est Glom Filt Rate - Afr Amer 108 mL/min (>60); Estimated Creatinine Clearance 45.09 ml/min; Globulin 2.4 g/dL (2.2-4.2); Glucose 111 mg/dL (74-106); Potassium 3.5 mmol/L (3.5-5.1); Protein, Total 4.8 g/dL (6.4-8.2); Sodium Level 145 mmol/L (136-145)
--- NOTE | 2022-02-06 09:46 | PN.HOSP_ITS ---
Documented by User: INOCENCIA Amador 02/06/22 10:01 Subjective Subjective Patient seen and examined. Patient lying in bed no distress noted. Patient denies any pain at this time. Objective Data Objective Data Vital Signs: Vital Signs Temp Pulse Resp BP Pulse Ox O2 Del Method O2 Flow Rate 99.2 F H 100 20 H 100/86 H 92 Room Air 2 02/06/22 07:59 02/06/22 09:00 02/06/22 07:59 02/06/22 09:00 02/06/22 07:59 02/06/22 07:59 02/06/22 04:00 Oxygen Flow Rate (L/min) 2 Oxygen Delivery Method Room Air Weight: 139 lb 15.896 oz Body Mass Index (BMI) 20.6 Intake & Output: Intake and Output for Last 24 Hours 02/04/22 02/05/22 02/06/22 23:59 23:59 23:59 Intake Total 1637.75 / 1637.75 1109.92 / 1109.92 Output Total 800 / 1100 425 / 425 Balance 837.75 / 537.75 684.92 / 684.92 Lab / Micro Data Result Diagrams: 02/06/22 06:03 02/06/22 06:03 Labs: Laboratory Results - last 24 hr 02/06/22 06:03: PT 15.4 H, INR 1.3 02/06/22 06:03: WBC 7.2, RBC 2.72 L, Hgb 9.0 L, Hct 27.9 L, MCV 102.6 H, MCH 33.1 H, MCHC 32.3, RDW Std Deviation 53.0 H, RDW Coeff of Dorota 14.1, Plt Count 114 L, MPV 10.6, Immature Gran % (Auto) 0.300, Neut % (Auto) 78.1 H, Lymph % (Auto) 12.1 L, [place] % (Auto) 9.2, Eos % (Auto) 0.0, Baso % (Auto) 0.3, Absolute Neuts (auto) 5.6, Absolute Lymphs (auto) 0.87, Nucleated RBC % 0 02/06/22 06:03: Sodium 145, Potassium 3.5, Chloride 116 H, Carbon Dioxide 24.0, Anion Gap 5, BUN 14, Creatinine 0.68, Estim Creat Clear Calc 45.09, Est GFR (MDRD) Af Amer 108, Est GFR (MDRD) Non-Af 89, BUN/Creatinine Ratio 20.6 H, Glucose 111 H, Calcium 7.6 L, Total Bilirubin 1.20 H, AST 64 H, ALT 20, Alkaline Phosphatase 68, Total Protein 4.8 L, Albumin 2.4 L, Globulin 2.4, Albumin/Globulin Ratio 1.0 Micro: Microbiology 02/05/22 01:10 Nasal Secretion SARS-CoV-2 Antigen (Rapid) - Final Radiography Diagnostic Testing: Radiology Impression Echocardiogram 02/05/22 00:19 Interpretation Summary The estimated ejection fraction is 50-55 %. Normal LV systolic function Mild AI Ordering Physician: Violet Patrick Referring Physician: Michael Phillips Performed By: Heather Alexandra, DICK, RVT Hip X-Ray 02/05/22 15:50 IMPRESSION: Fluoroscopic assistance images were obtained. Dictation for documentation purposes only. Electronically Signed: Moris Hoffmann MD at 18:30 EDT , Hip X-Ray 02/05/22 17:49 IMPRESSION: Successful total hip arthroplasty. Electronically Signed: Moris Hoffmann MD at 18:31 EDT , Physical Exam Const alert General Appearance: cooperative Orientation / Consciousness: oriented to person HEENT head/scalp atraumatic and moist oral mucous membranes Eyes conjunctivae normal and no scleral icterus Neck no lymphadenopathy and supple Resp normal respiratory effort and clear to auscultation bilaterally Cardio regular rate, S1 normal heart sound, S2 normal heart sound and peripheral pulses 2+ throughout Cardio Narrative: AFib with RVR Rate: tachycardic Rhythm: abnormal rhythm irregularly irregular GI normal to inspection, nondistended, normoactive bowel sounds, soft to palpation and non-tender Extremity Extremity Narrative: cast to right arm intact, left hip tender with palpation Neuro moves all extremities, no focal motor deficits and no sensory deficits noted Psych cooperative Activity / Motor Behavior: fidgetting Assessment & Plan Assessment/Plan (1) Subcapital fracture of left hip: (2) Atrial fibrillation with RVR: PLAN: Plan 1. Acute subcapital fracture of the femoral neck of the left hip secondary to a mechanical fall -Surgery completed 02/05/2022 -PT and OT following -Pain management regimen ordered 2. Afib with RVR -Cardizem d/c'd, patient initiated on metoprolol -Echocardiogram pending -warfarin on hold, INR 1.3 today 3. Suspected protein calorie malnutrition -Nutrition consulted 4. Dementia with behavioral disturbances -Continue Zyprexa -EKG daily for QTC monitoring -Patient coughing with food and pills, ST following recommend pills crushed in applesauce otherwise NPO. IVF initiated at 50ml/hr 5. Osteoporosis -Continue alendronate -Follow up with endocrinology outpatient 6. Hyperlipidemia -Continue Statin DVT prophylaxis- SCD DC planning-Patient will d/c to SNF upon discharge. This patient was seen by Oneyda Gonzalez, DILLON-C under the supervision of Dr. Jarquin. 14 minutes spent in clinical coordination of patient's plan of care. Documented by User: Dr. Brian Jarquin DO 02/06/22 11:36 Objective Data Lab / Micro Data Result Diagrams: 02/06/22 06:03 02/06/22 06:03 Assessment & Plan Assessment/Plan (1) Subcapital fracture of left hip: (2) Atrial fibrillation with RVR: Charges/Coding Addendum Addendum: Patient seen and examined independently.? Data and vitals reviewed.? I agree with the above note by the nurse practitioner. Subjective: Swimming. Tells me she is swimming at work. Objective: Physical exam: Patient is no acute stress and afebrile.? Right arm is in a cast.? Does seem slightly confused but does follow commands. heart rate regular rate and rhythm plus S1-S2 with a murmurs Rubs.? Lungs Are Clear to Auscultation Bilaterally.? Abdomen Is Soft Nontender Nondistended Normal Bowel Sounds.? Extremities Are without Any Signs Clubbing or Edema. Assessment and plan 1.? Atrial fibrillation with RVR Improved with the diltiazem drip.? Cardiology following.? Patient has been cleared by cardiology for surgery. Resume warfarin after surgery 2.? Elevated troponin Troponin peaked at 129.? Likely due to atrial fibrillation. 2D echocardiogram shows an EF 50 to 55% Once again, cleared by cardiology for surgery. 3.? Left hip fracture Plan for surgery with orthopedics today. 4.? Vitamin D deficiency 25-hydroxy vitamin D level low at 18.8.? Goal would be around 50. Start ergocalciferol. 5.? Coagulopathy Secondary to warfarin Resolved after vitamin K and prothrombin complex concentrate 6.? VTE prophylaxis SCDs for now.? Resume warfarin after surgery when okayed by orthopedics. 7. Encephalopathy: More confused today. Minimize potentiating medications. Greater than 20 minutes which was spent reviewing data, documentation and examining and taking history from the patient. Visit Charges Inpatient E&M: 65495 Subs Hosp L2
[2022-02-06] MEDS: Pantoprazole Sodium 40 MG Tablet PO (10:22)
[2022-02-06] MEDS: Metoprolol Tartrate 50 MG Tablet PO ×2 (10:22→21:40)
[2022-02-06] MEDS: Senna/Docusate Sodium 1 Tablet 2 TABLET PO ×2 (10:23→21:35)
[2022-02-06] MEDS: Acetaminophen 500 MG Tablet 1000 MG PO ×3 (10:23→21:38)
[2022-02-06] MEDS: OLANZapine 5 MG/TAB TAB.RAPDIS PO (10:23)
[2022-02-06] MEDS: oxyCODONE 5 MG Tablet PO (10:29)
[2022-02-06] MEDS: 0.9% Saline Lock 10 ML Syringe IV (11:04)
[2022-02-06] MEDS: 0.9% Normal Saline 1,000 ML 50 ML IV (11:04)
--- NOTE | 2022-02-06 13:29 | PN.ORTHO_ITS ---
Subjective Subjective Patient is doing well. No acute events overnight. Continues with confusion however she seems to answer questions more appropriately this morning. No complaints of calf pain when asked directly. Denies any associated numbness and tingling. Objective Data Objective Data Vital Signs: Vital Signs Temp Pulse Resp BP Pulse Ox O2 Del Method O2 Flow Rate 98.9 F 72 18 141/73 H 93 Nasal Cannula 2 02/06/22 12:00 02/06/22 12:00 02/06/22 12:00 02/06/22 12:00 02/06/22 12:00 02/06/22 12:00 02/06/22 12:00 Oxygen Flow Rate (L/min) 2 Oxygen Delivery Method Nasal Cannula Weight: 139 lb 15.896 oz Body Mass Index (BMI) 20.6 Intake & Output: Intake and Output for Last 24 Hours 02/04/22 02/05/22 02/06/22 23:59 23:59 23:59 Intake Total 1637.75 / 1637.75 1247.42 / 1247.42 Output Total 800 / 1100 575 / 575 Balance 837.75 / 537.75 672.42 / 672.42 Lab / Micro Data Attestation: I reviewed the patient's lab results. Result Diagrams: 02/06/22 06:03 02/06/22 06:03 Labs: Laboratory Results - last 24 hr 02/06/22 06:03: PT 15.4 H, INR 1.3 02/06/22 06:03: WBC 7.2, RBC 2.72 L, Hgb 9.0 L, Hct 27.9 L, MCV 102.6 H, MCH 33.1 H, MCHC 32.3, RDW Std Deviation 53.0 H, RDW Coeff of Dorota 14.1, Plt Count 114 L, MPV 10.6, Immature Gran % (Auto) 0.300, Neut % (Auto) 78.1 H, Lymph % (Auto) 12.1 L, [place] % (Auto) 9.2, Eos % (Auto) 0.0, Baso % (Auto) 0.3, Absolute Neuts (auto) 5.6, Absolute Lymphs (auto) 0.87, Nucleated RBC % 0 02/06/22 06:03: Sodium 145, Potassium 3.5, Chloride 116 H, Carbon Dioxide 24.0, Anion Gap 5, BUN 14, Creatinine 0.68, Estim Creat Clear Calc 45.09, Est GFR (MDRD) Af Amer 108, Est GFR (MDRD) Non-Af 89, BUN/Creatinine Ratio 20.6 H, Glucose 111 H, Calcium 7.6 L, Total Bilirubin 1.20 H, AST 64 H, ALT 20, Alkaline Phosphatase 68, Total Protein 4.8 L, Albumin 2.4 L, Globulin 2.4, Albumin/Globulin Ratio 1.0 Micro: Microbiology 02/05/22 01:10 Nasal Secretion SARS-CoV-2 Antigen (Rapid) - Final Radiography Diagnostic Testing: Radiology Impression Hip X-Ray 02/05/22 15:50 IMPRESSION: Fluoroscopic assistance images were obtained. Dictation for documentation purposes only. Electronically Signed: Moris Hoffmann MD at 18:30 EDT , Hip X-Ray 02/05/22 17:49 IMPRESSION: Successful total hip arthroplasty. Electronically Signed: Moris Hoffmann MD at 18:31 EDT , Physical Exam Const no apparent distress Constitutional Narrative: Confused Extremity Extremity Narrative: Left lower extremity: Dressing is clean dry and intact Sensations intact to light touch saphenous, sural, superficial peroneal, deep peroneal, and tibial distributions Motors intact EHL, DF, PF calves are soft and supple Patient does have multiple ecchymoses along the left upper and lower extremity. Skin is intact. Assessment & Plan Assessment/Plan (1) Dementia: PLAN: Managed per primary service (2) Subcapital fracture of left hip: PLAN: Status post left hip hemiarthroplasty postop day 1 1. Pain control: Per primary service pain is currently under control 2. DVT prophylaxis: Resume Coumadin today provided patient's falls do not pose a increased risk factor. We will allow primary service to determine nature of risk associated with anticoagulation. Patient should resume anticoagulation today to prevent VTE's. 3. Anemia: Acute on chronic anemia exacerbated by surgical intervention and fracture. 4. Therapy: Weightbearing as tolerated, activity as tolerated, anterior hip precautions. 5. Disposition: Patient orthopedically stable. Please call for any further questions or concerns. Dressing can be discontinued on postop day 5 and left open to air if incision is clean dry and intact. Change dressing as needed if necessary. Steri-Strips will fall off on their own. Patient should follow-up in the office with my physician commercial lines account assistant or myself in 2 weeks for x-rays and wound check. Recommend continued therapy on discharge. [facility]: (3) Atrial fibrillation with RVR: (4) Elevated troponin: (5) Anemia:
--- NOTE | 2022-02-06 15:34 | CM.ED ---
Addendum entered by Vicki Fonseca 02/06/22 15:41: JENNIFER called Abraham. Abraham said that he has been trying to get patient into [facility] from home however there is too many hoops. Abraham said that the plan is for patient to go to [facility] at discharge from [facility]. Patient will need precert as she has [employer]. Plan: [facility] at discharge Vicki HOSKINS Original Note: JENNIFER called patient's , Selena and there was no answer and no voicemail. JENNIFER called patient's son, Abraham, and no answer but JENNIFER left voice mail stating that it is this promotion writer's understanding patient is from [facility] with the plan to return to [facility]. JENNIFER requested call back. JENNIFER called [facility]. Spoke to Abbey. Pat said that patient's is at [facility]. Pat said that the plan was for patient to come to [facility]. Abbey will send text to [facility] admission staff to contact this promotion writer. JENNIFER received call back from Abraham but this promotion writer was on phone and unable to get call.
[2022-02-06] MEDS: Atorvastatin Calcium 20 MG Tablet PO (21:35)
[2022-02-07] VITALS (12 sets, daily range): BP systolic 91–117; BP diastolic 48–57; PULSE 80–114; RESP 17–18; TEMP 36.6–36.9; O2SAT 94–95
[2022-02-07] MEDS: Acetaminophen 500 MG Tablet 1000 MG PO ×3 (05:18→21:26)
[2022-02-07] MEDS: 0.9% Normal Saline 1,000 ML 50 ML IV (05:21)
--- NOTE | 2022-02-07 05:46 | NURSING ---
all documentation completed by Adrian ASENCIO reviewed by this RN
[2022-02-07 06:14] LABS: Absolute Lymphocyte Count 1.21 X10^3/uL (0.83-4.51); Basophil# 0.02 X10^3/uL; Basophil% 0.2 % (0-1); Eosinophil# 0.06 X10^3/uL; Eosinophils% 0.6 % (0-5); Hematocrit 28.5 % (37-47); Hemoglobin 9.2 g/dL (12.0-15.0); Lymphocyte # 1.21 X10^3/ul (0.83-4.51); Mean Corp Hgb Conc 32.3 g/dL (32-36); Mean Corpuscular Hgb 33.3 pg (27.0-32.0); Mean Corpuscular Volume 103.3 fL (81-99); Monocyte# 0.79 X10^3/uL; Monocyte% 7.9 % (0-10); NRBC Flagged by Analyzer 0 % (0-5); Neutrophil # 7.95 X10^3/uL (2.7-7.7); Platelet Count 135 K/mm3 (150-450); RBC Distribution Width SD 53.1 fl (35.1-43.9); Red Blood Count 2.76 M/mm3 (4.2-5.4); White Blood Count 10.1 K/mm3 (4.4-11.0)
[2022-02-07 06:23] LABS: International Normalized Ratio 1.2; Prothrombin Time (Protime)PT. 14.9 SECONDS (11.7-14.9)
[2022-02-07 06:47] LABS: ALB/GLOB Ratio 0.9 RATIO (0.9-2.4); AST(SGOT) 67 U/L (15-37); Alanine Aminotransfer ALT/SGPT 21 U/L (13-56); Albumin, Serum 2.3 g/dL (3.2-5.0); Alkaline Phosphatase 68 U/L (45-117); Anion Gap 4 (5-15); BUN 21 mg/dL (7-18); BUN/Creat Ratio 30.4 RATIO (10-20); Chloride 117 mmol/L (98-107); Creatinine, Serum 0.69 mg/dL (0.55-1.02); EST Glomerular Filtration Rate 87 mL/min (>60); Est Glom Filt Rate - Afr Amer 106 mL/min (>60); Estimated Creatinine Clearance 45.09 ml/min; Globulin 2.5 g/dL (2.2-4.2); Glucose 98 mg/dL (74-106); Potassium 3.7 mmol/L (3.5-5.1); Protein, Total 4.8 g/dL (6.4-8.2); Sodium Level 146 mmol/L (136-145)
--- NOTE | 2022-02-07 08:00 | PN.HOSP_ITS ---
Subjective Subjective Denies any pain today. Objective Data Objective Data Vital Signs: Vital Signs Temp Pulse Resp BP Pulse Ox O2 Del Method O2 Flow Rate 36.9 C 114 H 18 94/50 L 94 Room Air 2 02/07/22 03:01 02/07/22 07:02 02/07/22 03:01 02/07/22 03:01 02/07/22 03:01 02/07/22 03:01 02/06/22 12:00 Oxygen Flow Rate (L/min) 2 Oxygen Delivery Method Room Air Weight: 63.8 kg Body Mass Index (BMI) 20.6 Intake & Output: Intake and Output for Last 24 Hours 02/05/22 02/06/22 02/07/22 23:59 23:59 23:59 Intake Total 1637.75 / 1637.75 1532.42 / 1532.42 632.5 / 632.5 Output Total 800 / 1100 635 / 735 150 / 150 Balance 837.75 / 537.75 897.42 / 797.42 482.5 / 482.5 Lab / Micro Data Result Diagrams: 02/07/22 05:27 02/07/22 05:27 Labs: Laboratory Results - last 24 hr 02/07/22 05:27: PT 14.9, INR 1.2 02/07/22 05:27: WBC 10.1, RBC 2.76 L, Hgb 9.2 L, Hct 28.5 L, MCV 103.3 H, MCH 3 3.3 H, MCHC 32.3, RDW Std Deviation 53.1 H, RDW Coeff of Dorota 14.0, Plt Count 135 L, MPV 11.0, Immature Gran % (Auto) 0.300, Neut % (Auto) 79.0 H, Lymph % (Auto) 12.0 L, [place] % (Auto) 7.9, Eos % (Auto) 0.6, Baso % (Auto) 0.2, Absolute Neuts (auto) 8.0 H, Absolute Lymphs (auto) 1.21, Nucleated RBC % 0 02/07/22 05:27: Sodium 146 H, Potassium 3.7, Chloride 117 H, Carbon Dioxide 25.0, Anion Gap 4 L, BUN 21 H, Creatinine 0.69, Estim Creat Clear Calc 45.09, Est GFR (MDRD) Af Amer 106, Est GFR (MDRD) Non-Af 87, BUN/Creatinine Ratio 30.4 H, Glucose 98, Calcium 8.0 L, Total Bilirubin 1.50 H, AST 67 H, ALT 21, Alkaline Phosphatase 68, Total Protein 4.8 L, Albumin 2.3 L, Globulin 2.5, Albumin/Globulin Ratio 0.9 Micro: Microbiology 02/05/22 01:10 Nasal Secretion SARS-CoV-2 Antigen (Rapid) - Final Physical Exam Const Constitutional Narrative: More alert and conversant today. Resp normal respiratory effort, no retractions, no use of accessory muscles and clear to auscultation bilaterally Cardio regular rate, regular rhythm, S1 normal heart sound and S2 normal heart sound GI normal to inspection, nondistended, normoactive bowel sounds Extremity Extremity Narrative: Cast on right hand Assessment & Plan Assessment/Plan (1) Atrial fibrillation with RVR: PLAN: Improved with the diltiazem drip, which has since been turned off Cardiology following.? Patient has been cleared by cardiology for surgery. Resume warfarin on metoprolol 50 BID (2) Subcapital fracture of left hip: QUALIFIERS: Encounter type: initial encounter Fracture type: closed Qualified Code(s): S72.012A - Unspecified intracapsular fracture of left femur, initial encounter for closed fracture PLAN: Status post left hip hemiarthroplasty on the fifth Per Ortho: Weightbearing as tolerated, activity as tolerated, anterior hip precautions. Dressing to be discontinued postop day 5 and left open to air if incision is clean dry and intact. Change dressing as needed if necessary.? Steri-Strips will fall off on their own.? Patient should follow-up in the office with my physician assistant oceanographer or myself in 2 weeks for x-rays and wound check.? Recommend continued therapy on discharge. (3) Elevated troponin: PLAN: 2/2 afib w RVR 2D echocardiogram shows an EF 50 to 55% Once again, cleared by cardiology for surgery. (4) Dementia: PLAN: Complicates care and recovery Avoid potentiating medications (5) Vitamin D deficiency: PLAN: 25-hydroxy vitamin D level low at 18.8.? Goal would be around 50. Start ergocalciferol weekly for 8 weeks. PLAN: Plan VTE prophylaxis with resume warfarin, add VTE prophylactic dosing of enoxaparin until INR therapuetic. Disposition: To halfway facility. Plan is for [facility] pending insurance authorization. Charges/Coding Visit Charges Inpatient E&M: 22313 Subs Hosp L2
[2022-02-07] MEDS: Enoxaparin 40 MG/0.4 ML Syringe SC (10:26)
[2022-02-07] MEDS: OLANZapine 5 MG/TAB TAB.RAPDIS PO (10:26)
[2022-02-07] MEDS: Jantoven 2 MG Tablet PO (10:27)
[2022-02-07] MEDS: Pantoprazole Sodium 40 MG Tablet PO (10:27)
[2022-02-07] MEDS: Metoprolol Tartrate 50 MG Tablet PO (10:27)
[2022-02-07] MEDS: Senna/Docusate Sodium 1 Tablet 2 TABLET PO ×2 (10:28→21:25)
[2022-02-07] MEDS: Ensure Surgery 237 ML LIQUID PO (13:17)
[2022-02-07] MEDS: Atorvastatin Calcium 20 MG Tablet PO (21:26)
[2022-02-08] VITALS (14 sets, daily range): BP systolic 95–118; BP diastolic 50–106; PULSE 82–156; RESP 16–20; TEMP 35.8–37.7; O2SAT 94–97
[2022-02-08] MEDS: 0.9% Normal Saline 1,000 ML 50 ML IV (00:53)
[2022-02-08] MEDS: Acetaminophen 500 MG Tablet 1000 MG PO ×3 (05:31→20:48)
[2022-02-08] MEDS: Metoprolol Tartrate 5 MG/5 ML Vial IV (05:31)
[2022-02-08] MEDS: Enoxaparin 40 MG/0.4 ML Syringe SC (05:31)
[2022-02-08 05:44] LABS: Absolute Lymphocyte Count 1.38 X10^3/uL (0.83-4.51); Absolute Neutrophil Count 8.2 X10^3/uL (2.0-7.7); Basophil# 0.03 X10^3/uL; Basophil% 0.3 % (0-1); Eosinophil# 0.01 X10^3/uL; Eosinophils% 0.1 % (0-5); Hematocrit 29.9 % (37-47); Hemoglobin 9.8 g/dL (12.0-15.0); Lymphocyte # 1.38 X10^3/ul (0.83-4.51); Lymphocyte % 13.1 % (19-41); Mean Corp Hgb Conc 32.8 g/dL (32-36); Mean Corpuscular Hgb 33.4 pg (27.0-32.0); Mean Platelet Vol. 10.7 fl (6.2-12.0); Monocyte# 0.87 X10^3/uL; Monocyte% 8.2 % (0-10); NRBC Flagged by Analyzer 0 % (0-5); Neutrophil # 8.23 X10^3/uL (2.7-7.7); Neutrophil % 77.9 % (47-70); Platelet Count 178 K/mm3 (150-450); RBC Distribution Width SD 51.6 fl (35.1-43.9); Red Blood Count 2.93 M/mm3 (4.2-5.4); White Blood Count 10.6 K/mm3 (4.4-11.0)
[2022-02-08 05:56] LABS: International Normalized Ratio 1.3; Prothrombin Time (Protime)PT. 16.1 SECONDS (11.7-14.9)
[2022-02-08 06:17] LABS: Anion Gap 7 (5-15); BUN 29 mg/dL (7-18); BUN/Creat Ratio 35.1 RATIO (10-20); Calcium,Total 7.9 mg/dL (8.5-10.1); Chloride 119 mmol/L (98-107); Creatinine, Serum 0.83 mg/dL (0.55-1.02); EST Glomerular Filtration Rate 71 mL/min (>60); Est Glom Filt Rate - Afr Amer 86 mL/min (>60); Estimated Creatinine Clearance 54.32 ml/min; Glucose 116 mg/dL (74-106); Potassium 3.8 mmol/L (3.5-5.1); Sodium Level 147 mmol/L (136-145)
[2022-02-08] MEDS: Ensure Surgery 237 ML LIQUID PO (08:14)
--- NOTE | 2022-02-08 08:38 | CASEMGMT ---
Addendum entered by Erin Ely 02/08/22 10:17: Erin hinton/rody court assistant called Blair at [facility]. [facility] Blair will try to do pre-cert. [facility] is not in network with [facility] but patient also has Medicare. Blair is going to try and see if insurance will do a one time contract. Plan: [facility], Pending insurance pre-cert. Erin Ely Discharge Screen Repairer Crusher Original Note: Discharge Screen Repairer Crusher Erin hinton/rody court assistant called Blair at [facility]. [facility] does have beds available. Blair stated that the of the patient is a resident there. Erin faxed over referral and Blair will review. Will continue to follow. Plan: [facility], Waiting Acceptance. Erin Ely Discharge Screen Repairer Crusher
[2022-02-08] MEDS: 0.9% Normal Saline 1,000 ML 100 ML IV (10:00)
[2022-02-08] MEDS: Metoprolol Tartrate 50 MG Tablet PO ×2 (10:44→20:42)
[2022-02-08] MEDS: 0.9% Saline Lock 10 ML Syringe IV (10:48)
[2022-02-08] MEDS: Pantoprazole Sodium 40 MG Tablet PO (10:48)
--- NOTE | 2022-02-08 12:47 | PCM.PN.HOSP ---
Subjective Subjective Patient remains confused and has dementia at baseline however per discussion with nursing family reports she is a little more confused than her norm. She has pulled out her IV, attempted to follow her Sosa catheter, and has tried to pull off her right upper extremity cast. No significant issues overnight other than decreased urine output. Objective Data Objective Data Vital Signs: Vital Signs Temp Pulse Resp BP Pulse Ox O2 Del Method O2 Flow Rate 97.9 F 120 H 17 118/106 H 95 Room Air 2 02/08/22 10:24 02/08/22 10:44 02/08/22 10:24 02/08/22 10:24 02/08/22 10:24 02/08/22 10:24 02/06/22 12:00 Oxygen Flow Rate (L/min) 2 Oxygen Delivery Method Room Air Weight: 63.8 kg Body Mass Index (BMI) 20.6 Intake & Output: Intake and Output for Last 24 Hours 02/06/22 02/07/22 02/08/22 23:59 23:59 23:59 Intake Total 1532.42 / 1532.42 632.5 / 632.5 2042.50 / 2042.50 Output Total 635 / 735 350 / 350 185 / 185 Balance 897.42 / 797.42 282.5 / 282.5 1857.50 / 1857.50 Lab / Micro Data Result Diagrams: 02/08/22 05:13 02/08/22 05:13 Labs: Laboratory Results - last 24 hr 02/08/22 05:13: WBC 10.6, RBC 2.93 L, Hgb 9.8 L, Hct 29.9 L, MCV 102.0 H, MCH 33.4 H, MCHC 32.8, RDW Std Deviation 51.6 H, RDW Coeff of Dorota 14.0, Plt Count 178, MPV 10.7, Immature Gran % (Auto) 0.400, Neut % (Auto) 77.9 H, Lymph % (Auto) 13.1 L, [place] % (Auto) 8.2, Eos % (Auto) 0.1, Baso % (Auto) 0.3, Absolute Neuts (auto) 8.2 H, Absolute Lymphs (auto) 1.38, Nucleated RBC % 0 02/08/22 05:13: PT 16.1 H, INR 1.3 02/08/22 05:13: Sodium 147 H, Potassium 3.8, Chloride 119 H, Carbon Dioxide 21.0, Anion Gap 7, BUN 29 H, Creatinine 0.83, Estim Creat Clear Calc 54.32, Est GFR (MDRD) Af Amer 86, Est GFR (MDRD) Non-Af 71, BUN/Creatinine Ratio 35.1 H, Glucose 116 H, Calcium 7.9 L Micro: Microbiology 02/05/22 01:10 Nasal Secretion SARS-CoV-2 Antigen (Rapid) - Final Physical Exam Const alert and no apparent distress Constitutional Narrative: Older white female sitting up in bed, appears older than stated age, somewhat restless and confused, nontoxic Orientation / Consciousness: confused Resp normal respiratory effort, no retractions, no use of accessory muscles and clear to auscultation bilaterally Auscultation: Negative for crackles, rales, rhonchi or wheezes Cardio regular rate, regular rhythm, S1 normal heart sound, S2 normal heart sound, no murmurs, no rub, no gallops, no clicks and no JVD GI normal to inspection, nondistended, normoactive bowel sounds, soft to palpation, non-tender and non-distended; Negative for hepatosplenomegaly Extremity no clubbing, cyanosis or edema Extremity Narrative: Right upper extremity cast in place, right postoperative dressing in place and clean and dry-some surrounding ecchymosis Neuro CN's II-XII intact bilaterally and no focal motor deficits Neuro Narrative: Speech is nonsensical at times, patient confused, can move all extremities but limited with right lower extremity secondary to pain Assessment & Plan Assessment/Plan (1) Decreased urine output: (2) Macrocytic anemia: (3) Hypernatremia: (4) Hyperchloremia: (5) Mild dehydration: (6) Atrial fibrillation with RVR: (7) Subcapital fracture of left hip: QUALIFIERS: Encounter type: initial encounter Fracture type: closed Qualified Code(s): S72.012A - Unspecified intracapsular fracture of left femur, initial encounter for closed fracture (8) Elevated troponin: (9) Dementia: (10) Vitamin D deficiency: PLAN: Plan Left comminuted subcapital femoral neck fracture -Postop day 3 left hip hemiarthroplasty -Weightbearing as tolerated -Anterior hip precautions -Dressing to be discontinued postop day 5 -Patient to follow-up with orthopedic surgery in 2 weeks for postoperative x-rays and wound check -Continue PT/OT -Planning for placement at [facility] with pre-CERT currently pending Troponin elevation -Likely related to A. fib with RVR -Echo was performed and showed an EF of 50 to 55% with no wall ocean abnormalities -Patient was cleared for surgery by cardiology Decreased urine output -Patient was n.p.o. until last evening -We will increase IV fluids to 100 cc/h x 1 bag -Repeat BMP in a.m. -Encourage p.o. hydration -Check UA Hypernatremia/hyperchloremia -Suspect related to dehydration -See IV fluids changes above -If remains elevated tomorrow and needs continued IV fluids may need to change to half-normal -Repeat BMP in a.m. A. fib with RVR -Off diltiazem drip -Coumadin has been restarted -Continue beta-tim 50 mg p.o. twice daily--> dose last evening was held for soft pressures and heart rate is up a bit today but was controlled previously -INR is 1.3 Vitamin D deficiency -Vitamin D level is 18.8 -Continue ergocalciferol weekly for 8 weeks with repeat ergocalciferol level after therapy is completed -Goal is 50 Osteoporosis -Restart alendronate at discharge Hyperlipidemia -Continue atorvastatin GERD -Continue omeprazole Dementia with behavioral disturbances -Increase Zyprexa to home dose of 20 mg at at bedtime -Patient at high risk for delirium secondary to her baseline dementia DVT prophylaxis -Continue prophylactic dose enoxaparin until Coumadin level is between 2 and 3 CODE STATUS -DNR CCA with no intubation Charges/Coding Visit Charges Inpatient E&M: 84924 Subs Hosp L2
[2022-02-08] MEDS: Jantoven 2 MG Tablet PO (17:04)
[2022-02-08] MEDS: OLANZapine 10 MG Tablet 20 MG PO (20:41)
[2022-02-08] MEDS: Senna/Docusate Sodium 1 Tablet 2 TABLET PO (20:42)
[2022-02-08] MEDS: Atorvastatin Calcium 20 MG Tablet PO (20:43)
[2022-02-09] VITALS (12 sets, daily range): BP systolic 93–131; BP diastolic 52–93; PULSE 84–126; RESP 18–20; TEMP 36–36.8; O2SAT 94–99
[2022-02-09] MEDS: Acetaminophen 500 MG Tablet 1000 MG PO ×3 (05:16→21:29)
[2022-02-09] MEDS: Enoxaparin 40 MG/0.4 ML Syringe SC (05:16)
[2022-02-09] MEDS: oxyCODONE 5 MG Tablet PO ×2 (05:16→21:41)
[2022-02-09 07:57] LABS: Anion Gap 4 (5-15); BUN 33 mg/dL (7-18); BUN/Creat Ratio 42.8 RATIO (10-20); Chloride 123 mmol/L (98-107); Creatinine, Serum 0.77 mg/dL (0.55-1.02); EST Glomerular Filtration Rate 77 mL/min (>60); Est Glom Filt Rate - Afr Amer 93 mL/min (>60); Estimated Creatinine Clearance 45.09 ml/min; Glucose 106 mg/dL (74-106); Potassium 3.6 mmol/L (3.5-5.1); Sodium Level 150 mmol/L (136-145)
[2022-02-09 08:22] LABS: International Normalized Ratio 2.3; Prothrombin Time (Protime)PT. 24.9 SECONDS (11.7-14.9)
[2022-02-09] MEDS: 0.45% Normal Saline 1,000 ML 100 ML IV ×2 (10:00→20:00)
--- NOTE | 2022-02-09 10:33 | CASEMGMT ---
Discharge Seal Delivery Vehicle Team Technician Erin hinton/rody event marketing assistant [facility]. Erin left a voicemail in regards to get an update on patients insurance. Plan: [facility], bo at [facility]. Erin Ely Discharge Seal Delivery Vehicle Team Technician
[2022-02-09 10:44] LABS: Bacteria 0 SEEN /hpf (None Seen); Mucous, Urine 0 SEEN /hpf (<or=2+); Squamous Epithelial Cells - UA 0 SEEN /hpf (5-10)
--- NOTE | 2022-02-09 10:52 | CASEMGMT ---
Discharge Grapple Operator Erin hinton/rody assistant professor of history called Blair at [facility]. Insurance is in network with [facility]. Blair started pre-cert 02/08/22. Plan: [facility], Waiting pre-cert. Erin Ely Discharge Grapple Operator
[2022-02-09] MEDS: Pantoprazole Sodium 40 MG Tablet PO (10:54)
[2022-02-09 10:58] LABS: Color, Urine Amber (Yellow); Glucose, Dipstick Normal (Normal); Ketone-Dipstick 5 mg/dl (Negative); Leukocyte Esterase-Dipstick 100 /ul (Negative); Nitrite-Dipstick Negative (Negative); Occult Blood-Urine 250 /ul (Negative); Protein-Dipstick 30 mg/dl (Negative); Specific Gravity, Urine 1.015 (1.002-1.030); Urine Clarity Sl. Cloudy (Clear); Urine Urobilinogen 8 mg/dl (Normal)
[2022-02-09 11:07] LABS: Urine Bilirubin Dipstick 3 mg/dL (Negative)
[2022-02-09 11:10] LABS: Calcium Oxalate Crystals Ur 1+ /hpf (<or=2+)
[2022-02-09 11:14] LABS: Red Blood Cells-Urine > 100 SEEN /hpf (0-5); White Blood Cells 5-10 SEEN /hpf (0-5)
--- NOTE | 2022-02-09 13:39 | PCM.PN.HOSP ---
Subjective Subjective No significant issues overnight. Urine output remains low despite IV fluids given yesterday. Patient has no complaints and remains confused at her baseline. Objective Data Objective Data Vital Signs: Vital Signs Temp Pulse Resp BP Pulse Ox O2 Del Method O2 Flow Rate 96.8 F L 97 18 96/52 L 99 Room Air 2 02/09/22 10:42 02/09/22 10:53 02/09/22 10:42 02/09/22 10:53 02/09/22 10:42 02/09/22 10:47 02/06/22 12:00 Oxygen Flow Rate (L/min) 2 Oxygen Delivery Method Room Air Weight: 63.8 kg Body Mass Index (BMI) 20.6 Intake & Output: Intake and Output for Last 24 Hours 02/07/22 02/08/22 02/09/22 23:59 23:59 23:59 Intake Total 632.5 / 632.5 3192.50 / 3242.50 60 / 60 Output Total 350 / 350 185 / 185 260 / 260 Balance 282.5 / 282.5 3007.50 / 3057.50 -200 / -200 Lab / Micro Data Result Diagrams: 02/08/22 05:13 02/09/22 07:02 Labs: Laboratory Results - last 24 hr 02/09/22 07:02: PT 24.9 H, INR 2.3 02/09/22 07:02: Sodium 150 H, Potassium 3.6, Chloride 123 H, Carbon Dioxide 23.0, Anion Gap 4 L, BUN 33 H, Creatinine 0.77, Estim Creat Clear Calc 45.09, Est GFR (MDRD) Af Amer 93, Est GFR (MDRD) Non-Af 77, BUN/Creatinine Ratio 42.8 H, Glucose 106, Calcium 8.0 L 02/09/22 10:25: Urine Color [place], Urine Clarity Sl. Cloudy, Urine pH 5.0, Ur Specific [place] 1.015, Urine Protein 30 H, Urine Glucose (UA) Normal, Urine Ketones 5 H, Urine Occult Blood 250 H, Urine Nitrite Negative, Urine Bilirubin 3 H, Urine Urobilinogen 8 H, Ur Leukocyte Esterase 100 H, Urine RBC > 100 SEEN, Urine WBC 5-10 SEEN, Ur Squamous Epith Cells 0 SEEN, Calcium Oxalate Crystal 1+, Urine Bacteria 0 SEEN, Urine Mucus 0 SEEN Micro: Microbiology 02/05/22 01:10 Nasal Secretion SARS-CoV-2 Antigen (Rapid) - Final Physical Exam Const alert and no apparent distress Constitutional Narrative: Older white female lying in bed getting cleaned up by nursing assistance, appears older than stated age, somewhat restless and confused, nontoxic, nursing at bedside General Appearance: cooperative Orientation / Consciousness: oriented to person and confused HEENT head/scalp atraumatic and moist oral mucous membranes Resp normal respiratory effort, no retractions, no use of accessory muscles and clear to auscultation bilaterally Auscultation: Negative for crackles, rales, rhonchi or wheezes Cardio regular rate, S1 normal heart sound, S2 normal heart sound, no murmurs, no rub, no gallops, no clicks, no JVD and peripheral pulses 2+ throughout Cardio Narrative: Irregular irregular rhythm with controlled rate GI normal to inspection, nondistended, normoactive bowel sounds, soft to palpation, non-tender and non-distended; Negative for hepatosplenomegaly Extremity no clubbing, cyanosis or edema Extremity Narrative: Right upper extremity cast in place, right postoperative dressing in place and clean and dry-some surrounding ecchymosis Neuro moves all extremities and no focal motor deficits Neuro Narrative: Speech is nonsensical at times, patient confused, can move all extremities but limited with right lower extremity secondary to pain Psych cooperative Activity / Motor Behavior: fidgetting Assessment & Plan Assessment/Plan (1) Decreased urine output: (2) Macrocytic anemia: (3) Hypernatremia: (4) Hyperchloremia: (5) Mild dehydration: (6) Atrial fibrillation with RVR: (7) Subcapital fracture of left hip: QUALIFIERS: Encounter type: initial encounter Fracture type: closed Qualified Code(s): S72.012A - Unspecified intracapsular fracture of left femur, initial encounter for closed fracture (8) Elevated troponin: (9) Dementia: (10) Vitamin D deficiency: PLAN: Plan Left comminuted subcapital femoral neck fracture -Postop day 4 left hip hemiarthroplasty -Weightbearing as tolerated -Anterior hip precautions -Dressing to be discontinued postop day 5 -Patient to follow-up with orthopedic surgery in 2 weeks for postoperative x-rays and wound check -Continue PT/OT -Planning for placement at [facility] with pre-CERT currently pending--> hopeful for discharge in the next 24 hours as long as sodium has improved Troponin elevation -Likely related to A. fib with RVR -Echo was performed and showed an EF of 50 to 55% with no wall motion abnormalities -Patient was cleared for surgery by cardiology Decreased urine output -Patient was n.p.o. until last evening -Continue IV fluids at 100 cc/h but convert to half-normal saline with elevation of sodium -Repeat BMP in a.m. -Encourage p.o. hydration--> discussed with nursing to push p.o. fluids as patient slept most of the day yesterday. -UA appears dry but no signs of infection Hypernatremia/hyperchloremia -Suspect related to dehydration -Continue IV fluids but convert from normal saline to half-normal saline -Repeat BMP in a.m. A. fib with RVR -Remains off off diltiazem drip and overall heart rate is controlled -Coumadin has been restarted -Continue beta-tim 50 mg p.o. twice daily--> dose last evening was held for soft pressures and heart rate is up a bit today but was controlled previously -INR is 1.3 yesterday and 2.3 today -With rapid increase in INR we will have to monitor closely -We will decrease Coumadin from 2 to 1 mg with that significant of an increase in 24 hours. Vitamin D deficiency -Vitamin D level is 18.8 -Continue ergocalciferol weekly for 8 weeks with repeat ergocalciferol level after therapy is completed -Goal is 50 Osteoporosis -Restart alendronate at discharge Hyperlipidemia -Continue atorvastatin GERD -Continue omeprazole Dementia with behavioral disturbances -Continue Zyprexa -Patient at high risk for delirium secondary to her baseline dementia DVT prophylaxis -Continue prophylactic dose enoxaparin until Coumadin level is between 2 and 3 CODE STATUS -DNR CCA with no intubation Charges/Coding Visit Charges Inpatient E&M: 99653 Subs Hosp L2
[2022-02-09] MEDS: Metoprolol Tartrate 50 MG Tablet PO (21:23)
[2022-02-09] MEDS: OLANZapine 10 MG Tablet 20 MG PO (21:24)
[2022-02-09] MEDS: Atorvastatin Calcium 20 MG Tablet PO (21:27)
[2022-02-10] VITALS (12 sets, daily range): BP systolic 86–108; BP diastolic 37–77; PULSE 66–139; RESP 18–20; TEMP 36.1–37; O2SAT 83–99
[2022-02-10] MEDS: oxyCODONE 5 MG Tablet PO (03:14)
[2022-02-10] MEDS: Enoxaparin 40 MG/0.4 ML Syringe SC (06:07)
[2022-02-10] MEDS: Acetaminophen 500 MG Tablet 1000 MG PO (06:08)
[2022-02-10 06:22] LABS: International Normalized Ratio 2.6; Prothrombin Time (Protime)PT. 27.4 SECONDS (11.7-14.9)
[2022-02-10 06:38] LABS: Anion Gap 5 (5-15); BUN 30 mg/dL (7-18); BUN/Creat Ratio 41.4 RATIO (10-20); Calcium,Total 7.6 mg/dL (8.5-10.1); Chloride 118 mmol/L (98-107); Creatinine, Serum 0.72 mg/dL (0.55-1.02); EST Glomerular Filtration Rate 83 mL/min (>60); Est Glom Filt Rate - Afr Amer 100 mL/min (>60); Estimated Creatinine Clearance 45.09 ml/min; Glucose 78 mg/dL (74-106); Potassium 3.5 mmol/L (3.5-5.1); Sodium Level 145 mmol/L (136-145)
[2022-02-10] MEDS: Pantoprazole Sodium 40 MG Tablet PO (08:39)
[2022-02-10] MEDS: Metoprolol Tartrate 50 MG Tablet PO (08:39)
--- NOTE | 2022-02-10 10:48 | CASEMGMT ---
Discharge Roller Leveler Operator Blair reached out from [facility]. Insurance is requesting PT/OT and Speech notes from today. Erin sent clinical documents to Blair. Plan: [facility], Waiting pre-cert. Erin Ely Discharge Roller Leveler Operator
--- NOTE | 2022-02-10 16:09 | PN.HOSP_ITS ---
Subjective Subjective No issues overnight. Oral intake has been better. Awaiting pre-CERT for discharge. Objective Data Objective Data Vital Signs: Vital Signs Temp Pulse Resp BP Pulse Ox O2 Del Method O2 Flow Rate 97.4 F L 91 18 93/77 98 Room Air 2 02/10/22 15:45 02/10/22 15:45 02/10/22 15:45 02/10/22 15:45 02/10/22 15:45 02/10/22 15:45 02/10/22 15:11 Oxygen Flow Rate (L/min) 2 Oxygen Delivery Method Room Air Weight: 63.5 kg Body Mass Index (BMI) 20.6 Intake & Output: Intake and Output for Last 24 Hours 02/08/22 02/09/22 02/10/22 23:59 23:59 23:59 Intake Total 3192.50 / 3242.50 1900 / 1900 1120 / 1120 Output Total 185 / 185 535 / 535 Balance 3007.50 / 3057.50 1365 / 1365 1120 / 1120 Lab / Micro Data Result Diagrams: 02/08/22 05:13 02/10/22 06:06 Labs: Laboratory Results - last 24 hr 02/10/22 06:06: PT 27.4 H, INR 2.6 02/10/22 06:06: Sodium 145, Potassium 3.5, Chloride 118 H, Carbon Dioxide 22.0, Anion Gap 5, BUN 30 H, Creatinine 0.72, Estim Creat Clear Calc 45.09, Est GFR (MDRD) Af Amer 100, Est GFR (MDRD) Non-Af 83, BUN/Creatinine Ratio 41.4 H, Glucose 78, Calcium 7.6 L Micro: Microbiology 02/05/22 01:10 Nasal Secretion SARS-CoV-2 Antigen (Rapid) - Final Physical Exam Const alert and no apparent distress Constitutional Narrative: Older white female sitting up in chair at the bedside sleeping but awakens to name, intermittently mumbles incoherently but intermittently follows commands, appears to be comfortable and nontoxic General Appearance: cooperative Orientation / Consciousness: oriented to person and confused HEENT head/scalp atraumatic and moist oral mucous membranes Resp normal respiratory effort, no retractions, no use of accessory muscles and clear to auscultation bilaterally Auscultation: Negative for crackles, rales, rhonchi or wheezes Cardio regular rate, regular rhythm, S1 normal heart sound, S2 normal heart sound, no murmurs, no rub, no gallops, no clicks, no JVD and peripheral pulses 2+ throughout Cardio Narrative: Irregular irregular rhythm with controlled rate Rate: tachycardic Rhythm: abnormal rhythm irregularly irregular GI normal to inspection, nondistended, normoactive bowel sounds, soft to palpation, non-tender and non-distended; Negative for hepatosplenomegaly Extremity no clubbing, cyanosis or edema Extremity Narrative: Right upper extremity cast in place, right postoperative dressing in place Neuro moves all extremities and no focal motor deficits Neuro Narrative: Speech is nonsensical at times, patient confused, can move all extremities but limited with right lower extremity secondary to pain Psych cooperative Activity / Motor Behavior: fidgetting Assessment & Plan Assessment/Plan (1) Decreased urine output: (2) Macrocytic anemia: (3) Hypernatremia: (4) Hyperchloremia: (5) Mild dehydration: (6) Atrial fibrillation with RVR: (7) Subcapital fracture of left hip: QUALIFIERS: Encounter type: initial encounter Fracture type: closed Qualified Code(s): S72.012A - Unspecified intracapsular fracture of left femur, initial encounter for closed fracture (8) Elevated troponin: (9) Dementia: (10) Vitamin D deficiency: PLAN: Plan Left comminuted subcapital femoral neck fracture -Postop day 5 left hip hemiarthroplasty -Weightbearing as tolerated -Anterior hip precautions -Okay to remove dressing tomorrow -Patient to follow-up with orthopedic surgery in 2 weeks was to operatively for postoperative x-rays and wound check -Continue PT/OT -Planning for placement at [facility] with pre-CERT currently pending--> pre- CERT still pending and patient is medically now stable for discharge Troponin elevation -Likely related to A. fib with RVR -Echo was performed and showed an EF of 50 to 55% with no wall motion abnormalities -Patient was cleared for surgery by cardiology Decreased urine output -Output has improved -Hold IV fluids and monitor -Repeat BMP in a.m. -Continue to encourage p.o. hydration--> discussed with nursing to push p.o. fluids as patient slept most of the day yesterday. -UA appears dry but no signs of infection Hypernatremia/hyperchloremia -Resolved A. fib with RVR -Remains off off diltiazem drip and overall heart rate is controlled -Continue beta-tim 50 mg p.o. twice daily--> dose last evening was held for soft pressures and heart rate is up a bit today but was controlled previously -INR is 2.3 yesterday and 2.6 today -Continue Coumadin 1 mg -Repeat INR in a.m. Vitamin D deficiency -Vitamin D level is 18.8 -Continue ergocalciferol weekly for 8 weeks with repeat ergocalciferol level after therapy is completed -Goal is 50 Osteoporosis -Restart alendronate at discharge Hyperlipidemia -Continue atorvastatin GERD -Continue omeprazole Dementia with behavioral disturbances -Continue Zyprexa -Patient at high risk for delirium secondary to her baseline dementia DVT prophylaxis -Continue prophylactic dose enoxaparin until Coumadin level is between 2 and 3 CODE STATUS -DNR CCA with no intubation Charges/Coding Visit Charges Inpatient E&M: 47494 Subs Hosp L2
[2022-02-10 19:20] LABS: Allen Test Positive; Base Excess -4 mmol/L (-2 to +2); Bicarbonate 18.5 mmol/L (22-26); Blood Gas Specimen Type ART; O2 Delivery Device Room Air; PO2 103 mmHG (75-100); SITE L Radial; SO2 99 % (95-99); Total Carbon Dioxide 19 mmol/L; pCO2 22.9 mmHg (35-45); pH 7.52 (7.35-7.45)
[2022-02-11] VITALS (16 sets, daily range): BP systolic 93–106; BP diastolic 50–65; PULSE 80–160; RESP 18; TEMP 36.6–37.1; O2SAT 94–96
[2022-02-11 00:19] LABS: Hematocrit 26.3 % (37-47); Hemoglobin 8.7 g/dL (12.0-15.0)
[2022-02-11] MEDS: Lactated Ringers 1,000 ML 500 ML IV (01:28)
[2022-02-11] MEDS: 0.9% Saline Lock 10 ML Syringe IV ×3 (01:28→14:03)
[2022-02-11] MEDS: Metoprolol Tartrate 5 MG/5 ML Vial IV ×2 (04:31→14:02)
[2022-02-11] MEDS: Ketorolac 15 MG/ML Vial IM (05:46)
[2022-02-11] MEDS: Enoxaparin 40 MG/0.4 ML Syringe SC (05:58)
[2022-02-11 07:21] LABS: Absolute Neutrophil Count 4.7 X10^3/uL (2.0-7.7); Basophil# 0.02 X10^3/uL; Basophil% 0.3 % (0-1); Eosinophil# 0.05 X10^3/uL; Eosinophils% 0.8 % (0-5); Hematocrit 26.1 % (37-47); Hemoglobin 8.6 g/dL (12.0-15.0); Lymphocyte % 14.2 % (19-41); Mean Corpuscular Hgb 34.4 pg (27.0-32.0); Mean Corpuscular Volume 104.4 fL (81-99); Monocyte# 0.63 X10^3/uL; NRBC Flagged by Analyzer 0.3 % (0-5); Neutrophil # 4.68 X10^3/uL (2.7-7.7); Neutrophil % 73.9 % (47-70); Platelet Count 189 K/mm3 (150-450); RBC Distribution Width CV 15.8 % (11.6-14.6); White Blood Count 6.3 K/mm3 (4.4-11.0)
[2022-02-11 07:57] LABS: Anion Gap 6 (5-15); BUN 26 mg/dL (7-18); BUN/Creat Ratio 40.1 RATIO (10-20); Calcium,Total 7.4 mg/dL (8.5-10.1); Chloride 118 mmol/L (98-107); Creatinine, Serum 0.65 mg/dL (0.55-1.02); EST Glomerular Filtration Rate 94 mL/min (>60); Est Glom Filt Rate - Afr Amer 114 mL/min (>60); Estimated Creatinine Clearance 45.09 ml/min; Glucose 72 mg/dL (74-106); Potassium 3.2 mmol/L (3.5-5.1); Sodium Level 146 mmol/L (136-145)
[2022-02-11 08:00] LABS: International Normalized Ratio 2.5; Prothrombin Time (Protime)PT. 26.9 SECONDS (11.7-14.9)
[2022-02-11] MEDS: Potassium Chloride Oral Soln 20 MEQ/15 ML UDC 40 MEQ PO (10:03)
[2022-02-11] MEDS: 0.45% Normal Saline 1,000 ML 100 ML IV ×2 (10:04→21:56)
[2022-02-11] MEDS: Pantoprazole Sodium 40 MG Tablet PO (10:07)
[2022-02-11] MEDS: oxyCODONE 5 MG Tablet PO (10:20)
[2022-02-11] MEDS: Metoprolol Tartrate 50 MG Tablet PO (10:21)
--- NOTE | 2022-02-11 11:36 | CASEMGMT ---
Discharge Professor Of Literature Erin hinton/rody physical therapy assistant instructor called Blair at [facility]. Still nothing from insurance. Blair is going to call insurance to follow up. Plan: [facility], Waiting pre-cert. Erin Ely Discharge Professor Of Literature
--- NOTE | 2022-02-11 12:01 | CT_ITS ---
STUDY: CT BRAIN WITHOUT CONTRAST REASON FOR EXAM: Female, 76 years old. MS changes. 5 days post hip surgery. RADIATION DOSAGE (If Supplied By Facility): CTDIvol = ( 44.99 ) mGy, DLP = ( 829.85 ) mGycm TECHNIQUE: Transaxial CT imaging of the brain was performed without administration of intravenous contrast material. Individualized dose optimization techniques were used for this CT. COMPARISON: No relevant priors. FINDINGS: Normal soft tissue structures. There is hyperostosis frontalis internus. There is mild cerebral atrophy with widening of the extra-axial spaces and ventricular dilatation. Normal white matter tracts of the cerebral hemispheres. There are small punctate calcifications of the basal ganglia which are seen in the aging brain as a normal variant. Normal brainstem. Normal cerebellum. There is no intracranial hemorrhage. There are no findings of an acute ischemic infarction. Atherosclerotic calcification of the cavernous portions of the internal carotid arteries bilaterally. Normal visualized paranasal sinuses. CT/Brain/Head without Contrast IMPRESSION: Chronic involutional changes of the brain. Electronically Signed: Sarthak Julien MD at 13:00 EDT ,
--- NOTE | 2022-02-11 12:06 | PN.HOSP_ITS ---
Subjective Subjective With depressed mental status over last evening and through the night. ABG was obtained and showed no hypercapnia explaining somnolence and her ammonia level this morning was minimally elevated at 33 so I do not think this is the etiology. She was more responsive for me this morning and per nursing was actually able to vocalize and speak to them telling them her name and that she was having pain in her feet. This is the first coherent conversation she has had since I have been seeing her this week. I did call her son and discuss her baseline with him. He stated up until 3 weeks ago she had been able to have a communication but was markedly forgetful however after she fell and broke her wrist she is declined significantly with regards to her mental status. He states that CAT scans were performed at outside facility and showed no abnormalities. He did indicate that when she fell and broke her hip she was found laying up against the dryer and it is unclear if she hit her head at that time. I discussed with him the metabolic findings not revealing any cause for her depressed mental status and hopefully this is just delirium however we will repeat a CT scan here today. Objective Data Objective Data Vital Signs: Vital Signs Temp Pulse Resp BP Pulse Ox O2 Del Method O2 Flow Rate 98.8 F 130 H 18 98/50 L 94 Room Air 2 02/11/22 10:19 02/11/22 11:35 02/11/22 10:19 02/11/22 11:35 02/11/22 10:19 02/11/22 10:19 02/10/22 20:08 Oxygen Flow Rate (L/min) 2 Oxygen Delivery Method Room Air Weight: 62.8 kg Body Mass Index (BMI) 20.6 Intake & Output: Intake and Output for Last 24 Hours 02/09/22 02/10/22 02/11/22 23:59 23:59 23:59 Intake Total 1900 / 1900 1170 / 1170 1300 / 1300 Output Total 535 / 535 400 / 400 Balance 1365 / 1365 770 / 770 1300 / 1300 Lab / Micro Data Result Diagrams: 02/11/22 07:07 02/11/22 07:07 Labs: Laboratory Results - last 24 hr 02/10/22 23:52: Hgb 8.7 L, Hct 26.3 L 02/11/22 07:07: WBC 6.3, RBC 2.50 L, Hgb 8.6 L, Hct 26.1 L, MCV 104.4 H, MCH 34.4 H, MCHC 33.0, RDW Std Deviation 56.0 H, RDW Coeff of Dorota 15.8 H, Plt Count 189, MPV 10.0, Immature Gran % (Auto) 0.800, Neut % (Auto) 73.9 H, Lymph % (Auto) 14.2 L, [place] % (Auto) 10.0, Eos % (Auto) 0.8, Baso % (Auto) 0.3, Absolute Neuts (auto) 4.7, Absolute Lymphs (auto) 0.90, Nucleated RBC % 0.3 02/11/22 07:07: Sodium 146 H, Potassium 3.2 L, Chloride 118 H, Carbon Dioxide 22.0, Anion Gap 6, BUN 26 H, Creatinine 0.65, Estim Creat Clear Calc 45.09, Est GFR (MDRD) Af Amer 114, Est GFR (MDRD) Non-Af 94, BUN/Creatinine Ratio 40.1 H, Glucose 72 L, Calcium 7.4 L 02/11/22 07:07: PT 26.9 H, INR 2.5 02/11/22 07:07: Ammonia 33.0 H Micro: Microbiology 02/05/22 01:10 Nasal Secretion SARS-CoV-2 Antigen (Rapid) - Final ABG Data ABG results: ABG 02/10/22 19:16 Specimen Type ART Sample Site L Radial pH 7.52 H Bicarbonate Actual 18.5 L Total CO2 19 Base Excess -4 L O2 Saturation 99 ABG pCO2 22.9 L ABG pO2 103 H Jamel Test Positive O2 Delivery Device Room Air Physical Exam Const alert and no apparent distress Constitutional Narrative: Older white female lying in bed sleeping but awakens to name, intermittently mumbles incoherently but intermittently follows commands, appears to be comfortable and nontoxic General Appearance: cooperative Orientation / Consciousness: oriented to person and confused HEENT head/scalp atraumatic and moist oral mucous membranes HEENT Narrative: Dentition is poor, oropharynx is dry Resp normal respiratory effort, no retractions, no use of accessory muscles and clear to auscultation bilaterally Auscultation: Negative for crackles, rales, rhonchi or wheezes Cardio regular rate, S1 normal heart sound, S2 normal heart sound, no murmurs, no rub, no gallops, no clicks, no JVD and peripheral pulses 2+ throughout Cardio Narrative: Irregular irregular rhythm with controlled rate GI normal to inspection, nondistended, normoactive bowel sounds, soft to palpation, non-tender and non-distended; Negative for hepatosplenomegaly Extremity no clubbing, cyanosis or edema Extremity Narrative: Right upper extremity cast in place, left postoperative dressing in place and patient is actually laying on her hip at this time Neuro CN's II-XII intact bilaterally, moves all extremities, no focal motor deficits and no sensory deficits noted Neuro Narrative: Speech is nonsensical at times, patient confused, can move all extremities but limited with L lower extremity secondary to pain Psych Psych Narrative: Difficult to assess Assessment & Plan Assessment/Plan (1) Decreased urine output: (2) Macrocytic anemia: (3) Hypernatremia: (4) Hyperchloremia: (5) Mild dehydration: (6) Atrial fibrillation with RVR: (7) Subcapital fracture of left hip: QUALIFIERS: Encounter type: initial encounter Fracture type: closed Qualified Code(s): S72.012A - Unspecified intracapsular fracture of left femur, initial encounter for closed fracture (8) Elevated troponin: (9) Dementia: (10) Vitamin D deficiency: PLAN: Plan Left comminuted subcapital femoral neck fracture -Postop day 6 left hip hemiarthroplasty -Weightbearing as tolerated -Anterior hip precautions -Okay to remove dressing today -Patient to follow-up with orthopedic surgery in 2 weeks was to operatively for postoperative x-rays and wound check -Continue PT/OT -Planning for placement at [facility] with pre-CERT currently pending--> pre- CERT still pending --> p.o. intake needs to improve prior to discharge Troponin elevation -Likely related to A. fib with RVR -Echo was performed and showed an EF of 50 to 55% with no wall motion abnormalities -Patient was cleared for surgery by cardiology Decreased urine output -Output has improved when patient had IV fluids but deteriorated after IV fluids were discontinued and p.o. intake was poor -Restart half-normal saline at 100 cc/h continuous -Repeat BMP in a.m. -Continue to encourage p.o. hydration--> discussed with nursing again today the importance of pushing oral fluids and food if mental status permits -UA appeared dry but no signs of infection Toxic/metabolic encephalopathy -Discussed with son and he indicates she is not at her baseline. -Mental status has significantly declined in the last 3 weeks after she fell and broke her wrist -Was able to have conversations that were somewhat meaningful but was very forgetful prior to her fall resulted in wrist fracture -Metabolic work-up is not appearing to contribute -No signs of infection -We will obtain CT of her head -High suspicion for postoperative delirium Hypernatremia/hyperchloremia -Resolved A. fib with RVR -Remains off off diltiazem drip and overall heart rate has been however now elevated -Beta-tim held for mental status last night -May need to restart drip if heart rate does not come down -Continue beta-tim 50 mg p.o. twice daily -INR is 2.6 yesterday and 2.5 today -Continue Coumadin 1 mg -Repeat INR in a.m. Vitamin D deficiency -Vitamin D level is 18.8 -Continue ergocalciferol weekly for 8 weeks with repeat ergocalciferol level after therapy is completed -Goal is 50 Osteoporosis -Restart alendronate at discharge Hyperlipidemia -Continue atorvastatin GERD -Continue omeprazole Dementia with behavioral disturbances -Continue Zyprexa -Patient at high risk for delirium secondary to her baseline dementia DVT prophylaxis -INR is therapeutic and enoxaparin has been discontinued CODE STATUS -DNR CCA with no intubation Charges/Coding Visit Charges Inpatient E&M: 49849 Subs Hosp L2
--- NOTE | 2022-02-11 13:30 | CASEMGMT ---
Discharge Coding Compliance Specialist Blair from [facility] called. Pre-cert has been obtained. Pre-cert is good for 48 hrs. JENNIFER Noble notified. Plan: [facility] Discharge Coding Compliance Specialist
--- NOTE | 2022-02-11 13:32 | CASEMGMT ---
Patient has been approved for [facility]. JENNIFER notified physician. Patient is not ready today. Patient's pre-cert will if she does not go to [facility] tomorrow. JENNIFER notified physician. JENNIFER will also talk with patient's son and make him aware. Aide SINGLETON
[2022-02-11] MEDS: Acetaminophen 500 MG Tablet 1000 MG PO ×2 (14:02→22:03)
--- NOTE | 2022-02-11 14:22 | CASEMGMT ---
SW went to patient's room and patient's daughter in law was present. SW introduced self and role at [facility]. SW let her know [facility], but she will not go today. Aide SINGLETON
[2022-02-11] MEDS: Digoxin 250 MCG/ML Ampul IV (18:05)
[2022-02-11] MEDS: OLANZapine 10 MG Tablet 20 MG PO (22:03)
[2022-02-11] MEDS: Atorvastatin Calcium 20 MG Tablet PO (22:03)
[2022-02-11] MEDS: Amiodarone 200 MG Tablet PO (22:03)
[2022-02-12] VITALS (11 sets, daily range): BP systolic 98–130; BP diastolic 46–59; PULSE 79–124; RESP 16–18; TEMP 36.3–36.7; O2SAT 95–96
[2022-02-12] MEDS: 0.45% Normal Saline 1,000 ML 100 ML IV (07:22)
[2022-02-12 08:19] LABS: Anion Gap 5 (5-15); BUN 27 mg/dL (7-18); BUN/Creat Ratio 35.7 RATIO (10-20); Calcium,Total 7.8 mg/dL (8.5-10.1); Chloride 118 mmol/L (98-107); Creatinine, Serum 0.76 mg/dL (0.55-1.02); EST Glomerular Filtration Rate 79 mL/min (>60); Est Glom Filt Rate - Afr Amer 95 mL/min (>60); Estimated Creatinine Clearance 45.09 ml/min; Glucose 100 mg/dL (74-106); Potassium 3.7 mmol/L (3.5-5.1); Sodium Level 143 mmol/L (136-145)
[2022-02-12 08:24] LABS: International Normalized Ratio 2.9; Prothrombin Time (Protime)PT. 30.4 SECONDS (11.7-14.9)
--- NOTE | 2022-02-12 08:50 | RAD_ITS ---
STUDY: X-RAY - RIGHT HAND REASON FOR EXAM: Female, 76 years old. old fx TECHNIQUE: 3 view(s) of the hand. COMPARISON: None. FINDINGS: Normal radiocarpal articulation. Normal distal radioulnar joint. Normal visualized carpal bones. Normal carpal articulations Normal carpometacarpal articulation of the thumb. Normal second through fifth carpometacarpal joints. Healing fracture of the shaft of the fifth metacarpal bone. Normal metacarpophalangeal joint of the thumb. Normal interphalangeal joint of the thumb. Normal proximal and distal phalanges of the thumb. Normal metacarpophalangeal joints of the second through fifth fingers. Normal proximal and distal interphalangeal joints of the second through fifth fingers. Normal phalanges of the second through fifth fingers. Fiberglass cast obscures soft tissue and bony detail. RAD/Hand Min 3 Views IMPRESSION: Healing spiral fracture of the shaft of the fifth metacarpal bone. Electronically Signed: Cornelio Ashley MD at 9:07 EDT ,
--- NOTE | 2022-02-12 08:51 | CASEMGMT ---
JENNIFER received a message to call patient's daughter in law Joann. JENNIFER called Joann and she said she is not sure [facility] is medically [facility]. Joann said [facility] is so short staffed she does not think they would be able to take care of patient right now. JENNIFER told Joann that physician will examine patient this am and determine if she is ready to go. JENNIFER let Joann know that patient's authorization from insurance will if patient does not go today. Joann asked about rehab at [facility]. JENNIFER let her know that the pre-cert would have to be canceled and started over again which would delay her discharge. JENNIFER will speak with physician and let her know. Aide SINGLETON
[2022-02-12] MEDS: Amiodarone 200 MG Tablet PO ×2 (09:42→22:16)
[2022-02-12] MEDS: Pantoprazole Sodium 40 MG Tablet PO (09:42)
[2022-02-12] MEDS: Metoprolol Tartrate 100 MG Tablet PO ×2 (09:46→22:16)
--- NOTE | 2022-02-12 10:22 | CASEMGMT ---
Patient is not ready for discharge as her heart rate has increased. JENNIFER spoke with Violeta in TCU and she spoke with patient's daughter in law who wants patient to go to TCU. Patient's pre-cert expires today so the process will have to be started over again anyway. JENNIFER called patient's daughter in law Joann and let her know patient is not ready medically for discharge. JENNIFER let Joann know [facility] can accept patient, but a new insurance authorization will need to be obtained. Joann thanked JENNIFER. JENNIFER called [facility] to talk with Padmini to cancel the pre-cert, but she was in a meeting. JENNIFER will call back. Aide SINGLETON
--- NOTE | 2022-02-12 11:40 | PN.HOSP_ITS ---
Subjective Subjective Much improved today. We are still having issues with her tachycardia. Her oral intake was much better in the last 24 hours and her mentation seems to be improving. Objective Data Objective Data Vital Signs: Vital Signs Temp Pulse Resp BP Pulse Ox O2 Del Method O2 Flow Rate 98.0 F 105 H 18 104/53 L 96 Room Air 2 02/12/22 09:39 02/12/22 09:46 02/12/22 09:39 02/12/22 09:46 02/12/22 09:39 02/12/22 09:39 02/10/22 20:08 Oxygen Flow Rate (L/min) 2 Oxygen Delivery Method Room Air Weight: 62.2 kg Body Mass Index (BMI) 20.6 Intake & Output: Intake and Output for Last 24 Hours 02/10/22 02/11/22 02/12/22 23:59 23:59 23:59 Intake Total 1170 / 1170 2780 / 2780 943.33 / 943.33 Output Total 400 / 400 Balance 770 / 770 2780 / 2780 943.33 / 943.33 Lab / Micro Data Result Diagrams: 02/11/22 07:07 02/12/22 07:35 Labs: Laboratory Results - last 24 hr 02/12/22 07:35: Sodium 143, Potassium 3.7, Chloride 118 H, Carbon Dioxide 20.0 L , Anion Gap 5, BUN 27 H, Creatinine 0.76, Estim Creat Clear Calc 45.09, Est GFR (MDRD) Af Amer 95, Est GFR (MDRD) Non-Af 79, BUN/Creatinine Ratio 35.7 H, Glucos e 100, Calcium 7.8 L 02/12/22 07:35: PT 30.4 H, INR 2.9 Micro: Microbiology 02/05/22 01:10 Nasal Secretion SARS-CoV-2 Antigen (Rapid) - Final Radiography Diagnostic Testing: Radiology Impression Brain CT 02/11/22 12:01 IMPRESSION: Chronic involutional changes of the brain. Electronically Signed: Sarthak Julien MD at 13:00 EDT , Hand X-Ray 02/12/22 08:50 IMPRESSION: Healing spiral fracture of the shaft of the fifth metacarpal bone. Electronically Signed: Cornelio Ashley MD at 9:07 EDT , Physical Exam Const alert, no apparent distress, average body habitus and well nourished Constitutional Narrative: Older white female sitting up in chair at the bedside watching television, completely awake and able to produce coherent conversation much improved in the last 24 hours General Appearance: cooperative Orientation / Consciousness: oriented to person and confused HEENT head/scalp atraumatic and moist oral mucous membranes Eyes conjunctivae normal and no scleral icterus Neck no lymphadenopathy and supple Resp normal respiratory effort, no retractions, no use of accessory muscles and clear to auscultation bilaterally Auscultation: Negative for crackles, rales, rhonchi or wheezes Cardio S1 normal heart sound, S2 normal heart sound, no murmurs, no rub, no gallops, no clicks, no JVD and peripheral pulses 2+ throughout Cardio Narrative: Irregular irregular rhythm, mildly tachycardic Rate: tachycardic Rhythm: abnormal rhythm irregularly irregular GI normal to inspection, nondistended, normoactive bowel sounds, soft to palpation, non-tender and non-distended; Negative for hepatosplenomegaly Extremity no clubbing, cyanosis or edema Extremity Narrative: Right upper extremity cast in place, left postoperative dressing in place and patient is actually laying on her hip at this time, left postoperative incision is clean dry and [id number] has been removed per instructions Neuro CN's II-XII intact bilaterally, moves all extremities, no focal motor deficits and no sensory deficits noted Neuro Narrative: Patient is no longer nonsensical with conversation, remains somewhat confused although mentation is dramatically improved Psych cooperative Psych Narrative: Affect is normal, patient less impulsive and agitated Assessment & Plan Assessment/Plan (1) Decreased urine output: (2) Macrocytic anemia: (3) Hypernatremia: (4) Hyperchloremia: (5) Mild dehydration: (6) Atrial fibrillation with RVR: (7) Subcapital fracture of left hip: QUALIFIERS: Encounter type: initial encounter Fracture type: closed Qualified Code(s): S72.012A - Unspecified intracapsular fracture of left femur, initial encounter for closed fracture (8) Elevated troponin: (9) Dementia: (10) Vitamin D deficiency: PLAN: Plan Left comminuted subcapital femoral neck fracture -Postop day 7 left hip hemiarthroplasty -Weightbearing as tolerated -Anterior hip precautions -Patient to follow-up with orthopedic surgery in 2 weeks was to operatively for postoperative x-rays and wound check -Continue PT/OT -Planning for placement at [id number] was started today Troponin elevation -Likely related to A. fib with RVR -Echo was performed and showed an EF of 50 to 55% with no wall motion abnormalities -Patient was cleared for surgery by cardiology Decreased urine output -Output has improved when patient had IV fluids but deteriorated after IV fluids were discontinued and p.o. intake was poor -Restart half-normal saline at 100 cc/h continuous -Repeat BMP in a.m. -Continue to encourage p.o. hydration--> discussed with nursing again today the importance of pushing oral fluids and food if mental status permits -UA appeared dry but no signs of infection Toxic/metabolic encephalopathy -Much improved in last 24 hours and closer to baseline -Mental status has significantly declined in the last 3 weeks after she fell and broke her wrist -Was able to have conversations that were somewhat meaningful but was very forgetful prior to her fall resulted in wrist fracture -Metabolic work-up is not appearing to contribute -No signs of infection -CT with no acute findings -High suspicion for postoperative delirium--> seems to be dramatically clearing Hypernatremia/hyperchloremia -Resolved A. fib with RVR -Heart rate has been a problem since a few doses of metoprolol were held secondary to mental status -Continue beta-tim but increase to 100 mg twice daily -We did try digoxin but was ineffective -Amiodarone 200 mg p.o. twice daily daily was initiated with wean after 7 days -INR is 2.5 yesterday and 2.9 today -Continue Coumadin 1 mg--> this is a reduced dose from baseline which is 2 mg -Repeat INR in a.m. Right wrist fracture -Orthopedic surgery is reviewing whether or not the patient will be able to have her cast removed prior to discharge Vitamin D deficiency -Vitamin D level is 18.8 -Continue ergocalciferol weekly for 8 weeks with repeat ergocalciferol level after therapy is completed -Goal is 50 Osteoporosis -Restart alendronate at discharge Hyperlipidemia -Continue atorvastatin GERD -Continue omeprazole Dementia with behavioral disturbances -Continue Zyprexa -Patient at high risk for delirium secondary to her baseline dementia DVT prophylaxis -Patient fully anticoagulated and therapeutic on Coumadin CODE STATUS -DNR CCA with no intubation Charges/Coding Visit Charges Inpatient E&M: 08008 Subs Hosp L2
[2022-02-12] MEDS: Acetaminophen 500 MG Tablet 1000 MG PO ×2 (13:45→22:17)
--- NOTE | 2022-02-12 15:42 | PN.ORTHO_ITS ---
Objective Data Objective Data Vital Signs: Vital Signs Temp Pulse Resp BP Pulse Ox O2 Del Method O2 Flow Rate 98.0 F 98 18 130/46 H 96 Room Air 2 02/12/22 15:27 02/12/22 15:27 02/12/22 15:27 02/12/22 15:27 02/12/22 15:27 02/12/22 15:27 02/10/22 20:08 Oxygen Flow Rate (L/min) 2 Oxygen Delivery Method Room Air Weight: 137 lb 2.04 oz Body Mass Index (BMI) 20.6 Intake & Output: Intake and Output for Last 24 Hours 02/10/22 02/11/22 02/12/22 23:59 23:59 23:59 Intake Total 1170 / 1170 2780 / 2780 2112.33 / 2112.33 Output Total 400 / 400 Balance 770 / 770 2780 / 2780 2112. / Lab / Micro Data Result Diagrams: 02/11/22 07:07 02/12/22 07:35 Labs: Laboratory Results - last 24 hr 02/12/22 07:35: Sodium 143, Potassium 3.7, Chloride 118 H, Carbon Dioxide 20.0 L , Anion Gap 5, BUN 27 H, Creatinine 0.76, Estim Creat Clear Calc 45.09, Est GFR (MDRD) Af Amer 95, Est GFR (MDRD) Non-Af 79, BUN/Creatinine Ratio 35.7 H, Glucose 100, Calcium 7.8 L 02/12/22 07:35: PT 30.4 H, INR 2.9 Micro: Microbiology 02/05/22 01:10 Nasal Secretion SARS-CoV-2 Antigen (Rapid) - Final Radiography Diagnostic Testing: Radiology Impression Hand X-Ray 02/12/22 08:50 IMPRESSION: Healing spiral fracture of the shaft of the fifth metacarpal bone. Electronically Signed: Cornelio Ashley MD at 9:07 EDT , Assessment & Plan Assessment/Plan (1) Disp fx of neck of right fifth metacarpal bone with routine healing: PLAN: New x-rays are obtained. Fracture is healing well. I was called to remove the cast in order for her to go to nursing/rehab. Cast was removed today without any complications. Skin looks well. X-rays were taken prior to removal of the cast showing adequate alignment and healing of the fifth metacarpal shaft fracture. We will transition the patient to a brace which she can wear for protective purposes until her next follow-up. (2) Subcapital fracture of left hip: QUALIFIERS: Encounter type: initial encounter Fracture type: [facility] ed Qualified Code(s): S72.012A - Unspecified intracapsular fracture of left femur, initial encounter for closed fracture PLAN: Patient is stable from an orthopedic standpoint continue with postoperative plan and disposition as noted.
--- NOTE | 2022-02-12 17:51 | NURSING ---
This RN called and updated pt's son, Abraham. Verbal consent obtained with Rosalba Avalos RN to place brace.
[2022-02-12] MEDS: Atorvastatin Calcium 20 MG Tablet PO (22:17)
[2022-02-12] MEDS: OLANZapine 10 MG Tablet 20 MG PO (22:17)
[2022-02-13 02:59] VITALS: PULSE 73
[2022-02-13 03:30] VITALS: O2SAT 87
[2022-02-13 03:45] VITALS: BP 96/46; PULSE 79; RESP 18; TEMP 37.1; O2SAT 97
[2022-02-13] MEDS: Acetaminophen 500 MG Tablet 1000 MG PO (04:35)
[2022-02-13 05:31] LABS: Absolute Lymphocyte Count 1.88 X10^3/uL (0.83-4.51); Absolute Neutrophil Count 3.7 X10^3/uL (2.0-7.7); Basophil# 0.04 X10^3/uL; Basophil% 0.6 % (0-1); Eosinophil# 0.25 X10^3/uL; Eosinophils% 3.8 % (0-5); Hematocrit 27.8 % (37-47); Lymphocyte # 1.88 X10^3/ul (0.83-4.51); Lymphocyte % 28.5 % (19-41); Mean Corp Hgb Conc 32.4 g/dL (32-36); Mean Corpuscular Hgb 34.2 pg (27.0-32.0); Mean Corpuscular Volume 105.7 fL (81-99); Mean Platelet Vol. 9.7 fl (6.2-12.0); Monocyte# 0.69 X10^3/uL; Monocyte% 10.5 % (0-10); NRBC Flagged by Analyzer 0 % (0-5); Neutrophil # 3.69 X10^3/uL (2.7-7.7); Neutrophil % 55.8 % (47-70); Platelet Count 238 K/mm3 (150-450); RBC Distribution Width CV 17.3 % (11.6-14.6); Red Blood Count 2.63 M/mm3 (4.2-5.4); White Blood Count 6.6 K/mm3 (4.4-11.0)
[2022-02-13 05:45] LABS: International Normalized Ratio 2.6; Prothrombin Time (Protime)PT. 27.6 SECONDS (11.7-14.9)
[2022-02-13 05:52] LABS: ALB/GLOB Ratio 0.7 RATIO (0.9-2.4); AST(SGOT) 69 U/L (15-37); Alanine Aminotransfer ALT/SGPT 38 U/L (13-56); Alkaline Phosphatase 341 U/L (45-117); Anion Gap 4 (5-15); BUN 22 mg/dL (7-18); BUN/Creat Ratio 27.4 RATIO (10-20); Calcium,Total 7.6 mg/dL (8.5-10.1); Chloride 115 mmol/L (98-107); EST Glomerular Filtration Rate 73 mL/min (>60); Est Glom Filt Rate - Afr Amer 89 mL/min (>60); Estimated Creatinine Clearance 56.36 ml/min; Globulin 2.7 g/dL (2.2-4.2); Glucose 97 mg/dL (74-106); Potassium 3.7 mmol/L (3.5-5.1); Protein, Total 4.7 g/dL (6.4-8.2); Sodium Level 142 mmol/L (136-145)
--- NOTE | 2022-02-13 06:41 | PN.HOSP_ITS ---
Objective Data Objective Data Vital Signs: Vital Signs Temp Pulse Resp BP Pulse Ox O2 Del Method O2 Flow Rate 98.7 F 79 18 96/46 L 97 Nasal Cannula 2 02/13/22 03:45 02/13/22 03:45 02/13/22 03:45 02/13/22 03:45 02/13/22 03:45 02/13/22 03:45 02/13/22 03:45 Oxygen Flow Rate (L/min) 2 Oxygen Delivery Method Nasal Cannula Weight: 141 lb 15.643 oz Body Mass Index (BMI) 20.6 Intake & Output: Intake and Output for Last 24 Hours 02/11/22 02/12/22 02/13/22 23:59 23:59 23:59 Intake Total 2780 / 2780 2513.33 / 2663.33 250 / 250 Balance 2780 / 2780 2513.33 / 2663.33 250 / 250 Lab / Micro Data Result Diagrams: 02/13/22 05:15 02/13/22 05:15 Labs: Laboratory Results - last 24 hr 02/12/22 07:35: Sodium 143, Potassium 3.7, Chloride 118 H, Carbon Dioxide 20.0 L , Anion Gap 5, BUN 27 H, Creatinine 0.76, Estim Creat Clear Calc 45.09, Est GFR (MDRD) Af Amer 95, Est GFR (MDRD) Non-Af 79, BUN/Creatinine Ratio 35.7 H, Glucose 100, Calcium 7.8 L 02/12/22 07:35: PT 30.4 H, INR 2.9 02/13/22 05:15: PT 27.6 H, INR 2.6 02/13/22 05:15: WBC 6.6, RBC 2.63 L, Hgb 9.0 L, Hct 27.8 L, MCV 105.7 H, MCH 34.2 H, MCHC 32.4, RDW Std Deviation 59.0 H, RDW Coeff of Dorota 17.3 H, Plt Count 238, MPV 9.7, Immature Gran % (Auto) 0.800, Neut % (Auto) 55.8, Lymph % (Auto) 28.5, Colbert % (Auto) 10.5 H, Eos % (Auto) 3.8, Baso % (Auto) 0.6, Absolute Neuts (auto) 3.7, Absolute Lymphs (auto) 1.88, Nucleated RBC % 0 02/13/22 05:15: Sodium 142, Potassium 3.7, Chloride 115 H, Carbon Dioxide 23.0, Anion Gap 4 L, BUN 22 H, Creatinine 0.80, Estim Creat Clear Calc 56.36, Est GFR (MDRD) Af Amer 89, Est GFR (MDRD) Non-Af 73, BUN/Creatinine Ratio 27.4 H, Glucose 97, Calcium 7.6 L, Total Bilirubin 1.40 H, AST 69 H, ALT 38, Alkaline Phosphatase 341 H, Total Protein 4.7 L, Albumin 2.0 L, Globulin 2.7, Albumin/Globulin Ratio 0.7 L Micro: Microbiology 02/05/22 01:10 Nasal Secretion SARS-CoV-2 Antigen (Rapid) - Final Radiography Diagnostic Testing: Radiology Impression Hand X-Ray 02/12/22 08:50 IMPRESSION: Healing spiral fracture of the shaft of the fifth metacarpal bone. Electronically Signed: Cornelio Ashley MD at 9:07 EDT , Assessment & Plan Assessment/Plan (1) Subcapital fracture of left hip: QUALIFIERS: Encounter type: initial encounter Fracture type: closed Qualified Code(s): S72.012A - Unspecified intracapsular fracture of left femur, initial encounter for closed fracture PLAN: Plan The patient is a 76 y/o F w/ PMHx: Dementia unclear type with behavioral disturbance history, PAF on coumadin w/ history of recurrent falls of note who presents to the [facility] on 02/05/22 with history of mechanical fall, noted to be living alone with OSH ED evaluation with left hip pain and debility as well as noted PAF with RVR upon arrival. #1. Mechanical fall, recurrent with left subcapital hip fracture and fracture of the neck of the right fifth metacarpal bone (right wrist fracture): CT with subcapital comminuted superior lateral displaced fracture of the left femoral neck, CT abdomen pelvis given trauma with a noted 1.8 cm enhancing mass in the right hepatic lobe of the liver, CT thorax, cervical spine and head with no acute findings, plain film of the left forearm, left humerus and hand unremarkable with no acute osseous injury. Orthopedic surgery consulted, Dr. Potter and patient underwent left hemiarthroplasty 02/05/2022. Patient right fifth metacarpal bone with initially cast placed, removed by orthopedic surgery on 02/12/2022 with repeat films following removal noting adequate alignment and healing of the fifth metacarpal space shaft fracture. 02/12/2022 orthopedic transition to brace for the healing fracture of the neck of the right fifth metacarpal bone to be worn for protective purposes until follow-up. For left hip fracture patient cleared postoperatively to resume anticoagulation, vikas ghtbearing as tolerated, anterior hip precautions, dressing discontinued postop day 5 and left open to air, Steri-Strips to fall off on their own, follow-up with office in 2 weeks for films and wound check. PT/OT/case management consulted and following with plan skilled transition once clinically a ppropriate. #2. Paroxsymal atrial fibrillation with RVR with elevated cardiac enzymes associated: EKG at outside facility with atrial fibrillation with RVR. Patient initially administered Cardizem bolus and transition to a drip eventually transitioned to oral metoprolol with increase to 100 twice daily with several attempts also with digoxin and eventual placement on amiodarone 200 mg twice nidia ly with plan for wean after 7 days per cardiology direction. Echocardiogram obtained with EF 50 to 55% with no wall motion abnormalities. Cardiology evaluated patient preoperatively given history and cleared for OR. Post OR patient cleared for resumption of chronic anticoagulant therapy although given her fall history she certainly is a high risk patient and this will need to be continue to monitor. Currently given patient INR greater than 2 plan continuation of Coumadin 1 mg only with continued INR trending, 02/12/2022 INR 2.9--> 02/13/2022 INR []. #3. Decreased urine output with electrolyte disturbances: Patient urine output improved with IV fluids but decreases following discontinuation given poor oral intake, had initially attempted resumption with altered fluids given hypernatremia/hyperchloremia, encouraging hydration, UA with no obvious evidence of infection but signs of dehydration. #4. Hypernatremia/hyperchloremia, likely iatrogenic: Patient with ongoing hydration given poor oral intake, eventually elevated sodium and chloride levels, 02/11/2022 sodium 146, chloride 118, IV fluids discontinued with encouraged oral intake, 02/12/2022 sodium 143, chloride 118--> 02/13/2022 sodium [], chloride [], continue to monitor. #5. Chronic macrocytic anemia: Admission hemoglobin 10.1, 02/11/2022 hemoglobin 8.6, hemodynamically vital signs have remained stable, will continue to trend. 02/13/2022 hemoglobin []. #6. Dementia with behavioral disturbances: Patient with significant intermittent difficulties during a presentation with underlying history, continued on Zyprexa, certainly high risk for delirium secondary to baseline underlying dementia, could consider adding and using Seroquel low-dose if necessary. #7. Vitamin D deficiency: Vitamin D level obtained and noted be 18.8, will continue ergocalciferol weekly for 8 weeks with repeat ergocalciferol level after therapy is completed with goal 50. #8. Osteoporosis: Patient alendronate held during admission, will restart at discharge. #9. Hyperlipidemia: We will continue patient on statin therapy. #10. GERD: We will continue patient on PPI. #11. DVT prophylaxis: SCDs, continue Coumadin with INR trending is noted. #12. CODE STATUS: DNR CCA, no intubation.
[2022-02-13 06:56] VITALS: PULSE 97
--- NOTE | 2022-02-13 08:01 | NURSING ---
Violeta called to inform us that patient's precert was obtained and patient can go to TCU when medically ready. Dr Duran informed.
[2022-02-13] MEDS: Ergocalciferol 1.25 MG (50, 000 UNIT) Capsule PO (08:25)
--- NOTE | 2022-02-13 08:45 | TREXTCAR_ITS ---
Diet Diet Order/Speech Therapy: 02/08/22 11:53 Diet: Regular - General Food consistency:: Pureed Liquid Consistency:: Regular/Thin Type of Dietary Supplement:: Ensure Enlive Is pt able to select menu?: No Diet Comments: Close supervision, po meds crushed in puree w/ oral care following Routine Orders/Code Status Enema Type: Fleetz Enema Frequency: Daily PRN O2 Liters per Minute: 2 O2 Frequency: Continuous Keep PO Greater than or Equal to (%): 92 Routine Lab Work: - (Follow-up CBC, BMP in 1 weeks and repeat INR daily until assure goal 2-2.5 with coumadin changes as needed.) Code Status: DNRCC-A (DNR-CCA, no intubation status.) Wound(s) LEFT HIP: Wound Type: Surgical Incision Right Arm: Wound Type: fracture Suggestions for Active Care Change Position every (hours): 2 Hours to sit in a chair: 4 Times a day to sit in chair: 3 Therapies Extremity Affected:: Left Lower (See specific instructon section.) Physical Therapy: Eval and Treat Occupational Therapy: Eval and Treat Speech Therapy: Eval and Treat Problem/Diagnosis (1) Subcapital fracture of left hip: Status: Acute Code(s): S72.012A - Unspecified intracapsular fracture of left femur, initial encounter for closed fracture Plan The patient is a 76 y/o F w/ PMHx: Dementia unclear type with behavioral disturbance history, PAF on coumadin w/ history of recurrent falls of note who presented to the [facility] on 02/05/22 with history of mechanical fall, noted to be living alone with OSH ED evaluation with left hip pain and debility as well as noted PAF with RVR upon arrival. CT with subcapital comminuted superior lateral displaced fracture of the left femoral neck, CT abdomen pelvis given trauma with a noted 1.8 cm enhancing mass in the right hepatic lobe of the liver, CT thorax, cervical spine and head with no acute findings, plain film of the left forearm, left humerus and hand unremarkable with no acute osseous injury. Orthopedic surgery consulted, Dr. Potter and patient underwent left hemiarthroplasty 02/05/2022. Patient right fifth metacarpal bone with initially cast placed, removed by orthopedic surgery on 02/12/2022 with repeat films following removal noting adequate alignment and healing of the fifth metacarpal space shaft fracture. 02/12/2022 orthopedic transition to brace for the healing fracture of the neck of the right fifth metacarpal bone to be worn for protective purposes until follow-up. For left hip fracture patient cleared postoperatively to resume anticoagulation, weightbearing as tolerated, anterior hip precautions, dressing discontinued postop day 5 and left open to air, Steri-Strips to fall off on their own, follow-up with office in 2 weeks for films and wound check. PT/OT/case management consulted and following with plan skilled transition. EKG at outside facility with atrial fibrillation with RVR. Patient initially administered Cardizem bolus and transition to a drip eventually transitioned to oral metoprolol with increase to 100 twice daily with several attempts also with digoxin and eventual placement on amiodarone 200 mg twice daily with plan for wean after 7 days per cardiology direction. Echocardiogram obtained with EF 50 to 55% with no wall motion abnormalities. Cardiology evaluated patient preoperatively given history and cleared for OR. Post OR patient cleared for resumption of chronic anticoagulant therapy although given her fall history she certainly is a high risk patient and this will need to be continue to monitor. Currently given patient INR greater than 2 plan continuation of Coumadin 1 mg only with continued INR trending, 02/12/2022 INR 2.9--> 02/13/2022 INR 2.6. Patient with significant intermittent difficulties during a presentation with underlying history, continued on Zyprexa, certainly high risk for delirium secondary to baseline underlying dementia. Vitamin D level obtained and noted be 18.8, will continue ergocalciferol weekly for 8 weeks with repeat ergocalciferol level after therapy is completed with goal 50. Patient given clinical improvement and stability transitioned once precertification obtained to TCU for ongoing care with planned follow-up with PCP, Orthopedic surgery and Cardiology services. ATTENDING PHYSICIAN DISCHARGE NOTE: Discharge Diagnoses: #1.? Mechanical fall, recurrent with left subcapital hip fracture and fracture of the neck of the right fifth metacarpal bone (right wrist fracture) #2.? Paroxsymal atrial fibrillation with RVR with elevated cardiac enzymes associated #3.? Decreased urine output with electrolyte disturbances, improved with encouraged oral intake #4.? Hypernatremia/hyperchloremia, likely iatrogenic #5.? Chronic macrocytic anemia #6.? Dementia with behavioral disturbances #7.? Vitamin D deficiency #8.? Osteoporosis #9.? Hyperlipidemia #10.? GERD #11.? CODE STATUS: DNR CCA, no intubation. Discharge Summary: The patient is a 76 y/o F w/ PMHx: Dementia unclear type with behavioral disturbance history, PAF on coumadin w/ history of recurrent falls of note who presented to the [facility] on 02/05/22 with history of mechanical fall, noted to be living alone with OSH ED evaluation with left hip pain and debility as well as noted PAF with RVR upon arrival. CT with subcapital comminuted superior lateral displaced fracture of the left femoral neck, CT abdomen pelvis given trauma with a noted 1.8 cm enhancing mass in the right hepatic lobe of the liver, CT thorax, cervical spine and head with no acute findings, plain film of the left forearm, left humerus and hand unremarkable with no acute osseous injury. Orthopedic surgery consulted, Dr. Potter and patient underwent left hemiarthroplasty 02/05/2022. Patient right fifth metacarpal bone with initially cast placed, removed by orthopedic surgery on 02/12/2022 with repeat films following removal noting adequate alignment and healing of the fifth metacarpal space shaft fracture. 02/12/2022 orthopedic transition to brace for the healing fracture of the neck of the right fifth metacarpal bone to be worn for protective purposes until follow-up. For left hip fracture patient cleared postoperatively to resume anticoagulation, weightbearing as tolerated, anterior hip precautions, dressing discontinued postop day 5 and left open to air, Steri- Strips to fall off on their own, follow-up with office in 2 weeks for films and wound check. PT/OT/case management consulted and following with plan skilled transition. EKG at outside facility with atrial fibrillation with RVR. Patient initially administered Cardizem bolus and transition to a drip eventually transitioned to oral metoprolol with increase to 100 twice daily with several attempts also with digoxin and eventual placement on amiodarone 200 mg twice daily with plan for wean after 7 days per cardiology direction. Echocardiogram obtained with EF 50 to 55% with no wall motion abnormalities. Cardiology evaluated patient preoperatively given history and cleared for OR. Post OR patient cleared for resumption of chronic anticoagulant therapy although given her fall history she certainly is a high risk patient and this will need to be continue to monitor. Currently given patient INR greater than 2 plan continuation of Coumadin 1 mg only with continued INR trending, 02/12/2022 INR 2.9--> 02/13/2022 INR 2.6. Patient with significant intermittent difficulties during a presentation with underlying history, continued on Zyprexa, certainly high risk for delirium secondary to baseline underlying dementia. Vitamin D level obtained and noted be 18.8, will continue ergocalciferol weekly for 8 weeks with repeat ergocalciferol level after therapy is completed with goal 50. Patient given clinical improvement and stability transitioned once precertification obtained to TCU for ongoing care with planned follow-up with PCP, Orthopedic surgery and Cardiology services. Discharge Time: > 35 Minutes DAY OF DISCHARGE PROGRESS NOTE: Subjective: Patient without acute event overnight per self and nursing report. Patient's remained calm and was not severely agitated per nursing report. Patient is morning states that she is feeling well and has no specific complaints. Its been several days since she is needed any pain medications. Patient denies fever, chills, nausea, emesis, abdominal pain, chest pain or dyspnea. Patient agreeable to discharge to TCU given clinical stability. Patient will be discharged with follow-up with primary care physician, cardiology as well as orthopedic surgery. Objective: T 98.7, heart 79, BP 96/46, respiratory rate 18, 97% on 2 L nasal cannula. Physical Examination: General: awake, alert, oriented to self, place and some recent events, able to have some conversation but definitely baseline notable underlying dementia, currently calm, denies any complaints currently. Skin: normal color, turgor, no icterus, cyanosis except for expected stage ecchymoses as well as postoperative incision status post hip fracture repair, no drainage noted. HEENT: AT/NC, EOMI, PERRLA, mildly dry MM. Lungs: CTA bilaterally, moderate effort, mild decrease BL bases, no rales, ronchi or wheezing; Heart: Irregular, rate appropriate; no gallop, rub audible. Abdomen: soft, NTTP, ND, distant normal BS. Extremities: no cyanosis, no clubbing, status post recent fall with right foot fracture, splint in place, able to move fingers, mildly swollen, status post fall also with left hip fracture, edematous with ecchymoses as expected, moving extremity, no drainage from dressing. Neurological: patient awake, alert, oriented as noted, cognitive function diffusely diminished baseline with underlying severe dementia, suspect still mildly reduced from baseline; pupils equally reactive to light and accomodation; cranial nerves II-XII grossly normal, moving all 4 extremities except extremely limited especially given history, improving slowly, severely global decreased Psychiatric: affect appears, currently flat, no acute evidence of depressive or anxiety feelings. Assessment and Plan: Please see hospital summary above. Allergies/Procedures Done in Hospital Allergies meloxicam [From Mobic] Allergy (Verified 02/05/22 00:18) PT UNSURE OF REACTION amoxicillin [From Augmentin] Adverse Reaction (Verified 02/05/22 00:18) Other clavulanic acid [From Augmentin] Adverse Reaction (Verified 02/05/22 00:18) Other Procedures: EKG and - (OR with Dr. Potter left hemiarthroplasty 02/05/2022.?) Type of Care/Length of Stay Estimated LOS: Convalescent Care Less Than 30 days Type of Care Needed: Skilled Rehab Potential: Fair Prognosis: Fair Additional Orders/Day of Discharge Additional Orders: Left hip fracture: Patient cleared postoperatively to resume anticoagulation, weight-bearing as tolerated, anterior hip precautions, dressing discontinued postop day 5 and left open to air, Steri-Strips to fall off on their own, follow-up with office in 2 weeks for films and wound check.? Right Wrist Fracture: Patient right fifth metacarpal bone with initially cast placed, removed by orthopedic surgery on 02/12/2022 with repeat films following removal noting adequate alignment and healing of the fifth metacarpal space shaft fracture. 02/12/2022 orthopedic transition to brace for the healing fracture of the neck of the right fifth metacarpal bone to be worn for protective purposes until follow-up.?Continue non-weight bearing until cleared per Orthopedic surgery. PAF w/ RVR: Transition from twice daily amiodarone to once daily on 02/19/22 per Cardiology direction. Additional orders: Maintain HOB, aspiration and fall precautions Hourly IS encouragement 7a-7p, 10x hr Frequent turn head and cough encouragement Weak oxygen to room air as able Day of Discharge: 02/13/22 Dietary and Speech Recommendations Dietitian Recommendations/Changes: will adjust to regular diet- texture/consistency per LOFT RIGGER; will add ensure enlive 240mL w/ meals given suspected malnutrition Discharge Plan Admission Admit Date/Time: 08/05/22 00:15 Primary Reason for Your Visit: L subcapital hip fracture, R wrist fracture, PAF w/ RVR Attending Provider: Sierra Duran Primary Care Provider: Michael Phillips Consulting Providers: Violet Patrick ; Garima Lyons ; Bill Pratt ; Jesus Barone ; Mikaela Murrieta ; Catrina,Thelma ; Chao,Nahum ; Brian Cote ; Reji Durand ; Pool Izquierdo ; Tracy Cabrera ; Owen Kwan ; Justin Vaughan ; Heriberto Vallejo ; Jason Ballard ; Arian Howell DIABET[employer] CLINICAL MANAGER ; Garima Townsend NP ; Ceci Ely ; Tae Potter ; Brian Jarquin ; Brenda Cano Instructions Patient Instructions: Understanding Hip Fractures, AFib Preventing Stroke, Wrist Fracture, AFib Additional Instructions / Restrictions: Mechanical fall, recurrent with left subcapital hip fracture and fracture of the neck of the right fifth metacarpal bone (right wrist fracture): OR with Dr. Potter and patient underwent left hemiarthroplasty 02/05/2022.?For left hip fracture patient cleared postoperatively to resume anticoagulation, weightbearing as tolerated, anterior hip precautions, dressing discontinued postop day 5 and left open to air, Steri-Strips to fall off on their own, follow-up with office in 2 weeks for films and wound check.? Patient right fifth metacarpal bone with initially cast placed, removed by orthopedic surgery on 02/12/2022 with repeat films following removal noting adequate alignment and healing of the fifth metacarpal space shaft fracture. 02/12/2022 orthopedic transition to brace for the healing fracture of the neck of the right fifth metacarpal bone to be worn for protective purposes until follow- up.?Continue non-weight bearing until cleared per Orthopedic surgery. Paroxsymal atrial fibrillation with RVR with elevated cardiac enzymes associated: Patient initially administered Cardizem bolus and transition to a drip eventually transitioned to oral metoprolol with increase to 100 twice daily with several attempts also with digoxin and eventual placement on amiodarone 200 mg twice daily with plan for wean after 7 days per cardiology direction.?Echocardiogram obtained with EF 50 to 55% with no wall motion abnormalities.? Cardiology evaluated patient preoperatively given history and cleared for OR.? Post OR patient cleared for resumption of chronic anticoagulant therapy although given her fall history she certainly is a high risk patient and this will need to be continue to monitor.? Maintained on Coumadin 1 mg, 02/12/2022 INR 2.9--> 02/13/2022 INR 2.6 with goal INR 2-2.6 with continued c oumadin alterations as needed to achieve appropriate goal. Patient remains high fall risk and LOW threshold to discontinue if recurrent falls. Amiodarone Titration plan: Continue amiodarone 200 mg daily UNTIL 02/19/22 One 02/19/22 transition to amiodarone 200 mg once daily Discharge Orders/Prescriptions Prescriptions: New metoprolol tartrate 100 mg Tablet 100 mg PO BID 30 Days Qty: 60 0RF sennosides-docusate sodium [Stool Softener-Stimulant Laxat] 8.6-50 mg Tablet 2 tab PO BID 30 Days Qty: 120 0RF olanzapine 10 mg Tablet 20 mg PO HS Qty: 30 0RF ergocalciferol (vitamin D2) [Vitamin D2] 1,250 mcg (50,000 unit) Capsule 1,250 mcg PO Q7D 56 Days Qty: 8 0RF Rx Instructions: Continue ergocalciferol weekly for 8 weeks with repeat ergocalciferol level after therapy. amiodarone 200 mg Tablet 200 mg PO BID 5 Days Qty: 11 0RF Rx Instructions: Continue amiodarone 200 mg BID until fininished 02/18/22, transition after to once daily. amiodarone 200 mg Tablet 200 mg PO DAILY 30 Days Qty: 30 0RF Rx Instructions: START ONCE DAILY ON 02/19/22 FOLLOWING TRANSITION OFF 200 MG BID REGIMEN. pantoprazole 40 mg Tablet,Delayed Release (Dr/Ec) 40 mg PO DAILY 30 Days Qty: 30 0RF warfarin [Jantoven] 1 mg Tablet 1 mg PO 1700 30 Days Qty: 30 0RF acetaminophen [Tylenol] 325 mg capsule 650 mg PO Q4H PRN (Reason: Pain 1-10/fever) 30 Days Qty: 10 0RF Continued atorvastatin 20 mg Tablet 20 mg PO DAILY alendronate 70 mg Tablet 70 mg PO QWEEK fluticasone propionate 50 mcg/actuation [place],Suspension 2 spray INTRANASAL DAILY PRN (Reason: Congestion) Rx Instructions: administer into each nostril Discontinued omeprazole 40 mg Capsule,Delayed Release(Dr/Ec) 40 mg PO DAILY No Action olanzapine 5 mg Tablet 20 mg PO QHS warfarin 2 mg tablet 2 mg PO DAILY Label Comments: TAKE 1 TABLET BY MOUTH EVERY DAY Referrals / Follow Up: Michael Phillips MD [Primary Care Provider] - (Follow-up within 1-2 days SNF discharge and may also consider given complex presentation PCP follow-up 1-2 weeks post-discharge hospital also.) Tae Potter MD [Med Staff - Active Staff] - (Follow-up in 2 weeks for repeat films and incision check.) Ceci Ely PA [Med Staff - Adv Practice Prof] - (Please follow-up within 1-2 week to review admission and assure continued stability on 02/19/22 amiodarone transition.) Disposition Disposition (needs filled in before D/C Order can be placed): [facility] ([facility]) Subcapital fracture of left hip Qualifiers: Encounter type: initial encounter Fracture type: closed Qualified Code(s): S72.012A - Unspecified intracapsular fracture of left femur, initial encounter for closed fracture
--- NOTE | 2022-02-13 08:58 | DS.PCM_ITS ---
Providers Date of Admission: 02/05/22 Date of Discharge: 02/13/22 Primary Care Physician: Dr. 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 Reason For Visit: PAF with RVR, Hip fracture, Wrist fracture, Falls Diagnosis Discharge Diagnosis (1) Subcapital fracture of left hip: Status: Acute Code(s): S72.012A - Unspecified intracapsular fracture of left femur, initial encounter for closed fracture Qualifiers: Encounter type: initial encounter Fracture type: closed Qualified Code(s): S72.012A - Unspecified intracapsular fracture of left femur, initial encounter for closed fracture Medications at Discharge Home Medications alendronate 70 mg tablet 70 mg PO QWEEK Check with primary doctor 02/05/22 atorvastatin 20 mg tablet 20 mg PO DAILY cholesterol 02/05/22 fluticasone propionate 50 mcg/actuation nasal spray,suspension 2 spray intranasal DAILY PRN Congestion 02/05/22 olanzapine 5 mg tablet 20 mg PO QHS Check with primary doctor 02/05/22 warfarin 2 mg tablet 2 mg PO DAILY blood thinner 02/05/22 acetaminophen 325 mg capsule (Tylenol) 650 mg PO Q4H PRN Pain 1-10/fever 30 days #10 caps 02/13/22 amiodarone 200 mg tablet 200 mg PO BID 5 days #11 tabs 02/13/22 amiodarone 200 mg tablet 200 mg PO DAILY 30 days #30 tabs 02/13/22 ergocalciferol (vitamin D2) 1,250 mcg (50,000 unit) capsule (Vitamin D2) 1,250 mcg PO Q7D 8 weeks #8 caps 02/13/22 metoprolol tartrate 100 mg tablet 100 mg PO BID 30 days #60 tabs 02/13/22 olanzapine 10 mg tablet 20 mg PO HS #30 tabs 02/13/22 pantoprazole 40 mg tablet,delayed release 40 mg PO DAILY 30 days #30 tabs 02/13/22 sennosides 8.6 mg-docusate sodium 50 mg tablet (Stool Softener-Stimulant Laxative) 2 tab PO BID 30 days #120 tabs 02/13/22 warfarin 1 mg tablet (Jantoven) 1 mg PO 1700 30 days #30 tabs 02/13/22 Hospital Course Operations None Procedures 2-D Echocardiogram and - (Left hemiarthroplasty 02/05/2022.) Summary of Care Provided Minutes Spent on Discharge: 45 Hospital Course: The patient is a 76 y/o F w/ PMHx: Dementia unclear type with behavioral disturbance history, PAF on coumadin w/ history of recurrent falls of note who presented to the [facility] on 02/05/22 with history of mechanical fall, noted to be living alone with OSH ED evaluation with left hip pain and debility as well as noted PAF with RVR upon arrival. CT with subcapital comminuted superior lateral displaced fracture of the left femoral neck, CT abdomen pelvis given trauma with a noted 1.8 cm enhancing mass in the right hepatic lobe of the liver, CT thorax, cervical spine and head with no acute findings, plain film of the left forearm, left humerus and hand unremarkable with no acute osseous injury. Orthopedic surgery consulted, Dr. Potter and patient underwent left hemiarthroplasty 02/05/2022. Patient right fifth metacarpal bone with initially cast placed, removed by orthopedic surgery on 02/12/2022 with repeat films following removal noting adequate alignment and healing of the fifth metacarpal space shaft fracture. 02/12/2022 orthopedic transition to brace for the healing fracture of the neck of the right fifth metacarpal bone to be worn for protective purposes until follow-up. For left hip fracture patient cleared postoperatively to resume anticoagulation, weightbearing as tolerated, anterior hip precautions, dressing discontinued postop day 5 and left open to air, Steri-Strips to fall o ff on their own, follow-up with office in 2 weeks for films and wound check. PT/OT/case management consulted and following with plan skilled transition. EKG at outside facility with atrial fibrillation with RVR. Patient initially administered Cardizem bolus and transition to a drip eventually transitioned to oral metoprolol with increase to 100 twice daily with several attempts also with digoxin and eventual placement on amiodarone 200 mg twice daily with plan for wean after 7 days per cardiology direction. Echocardiogram obtained with EF 50 to 55% with no wall motion abnormalities. Cardiology evaluated patient preoperatively given history and cleared for OR. Post OR patient cleared for resumption of chronic anticoagulant therapy although given her fall history she certainly is a high risk patient and this will need to be continue to monitor. Currently given patient INR greater than 2 plan continuation of Coumadin 1 mg only with continued INR trending, 02/12/2022 INR 2.9--> 02/13/2022 INR 2.6. Patient with significant intermittent difficulties during a presentation with underlying history, continued on Zyprexa, certainly high risk for delirium secondary to baseline underlying dementia. Vitamin D level obtained and noted be 18.8, will continue ergocalciferol weekly for 8 weeks with repeat ergocalciferol level after therapy is completed with goal 50. Patient given clinical im provement and stability transitioned once precertification obtained to TCU for ongoing care with planned follow-up with PCP, Orthopedic surgery and Cardiology services. ATTENDING PHYSICIAN DISCHARGE NOTE: Discharge Diagnoses: #1.? Mechanical fall, recurrent with left subcapital hip fracture and fracture of the neck of the right fifth metacarpal bone (right wrist fracture) #2.? Paroxsymal atrial fibrillation with RVR with elevated cardiac enzymes associated #3.? Decreased urine output with electrolyte disturbances, improved with encouraged oral intake #4.? Hypernatremia/hyperchloremia, likely iatrogenic #5.? Chronic macrocytic anemia #6.? Dementia with behavioral disturbances #7.? Vitamin D deficiency #8.? Osteoporosis #9.? Hyperlipidemia #10.? GERD #11.? CODE STATUS: DNR CCA, no intubation. Discharge Summary: The patient is a 76 y/o F w/ PMHx: Dementia unclear type with behavioral disturbance history, PAF on coumadin w/ history of recurrent falls of note who presented to the [facility] on 02/05/22 with history of mechanical fall, noted to be living alone with OSH ED evaluation with left hip pain and debility as well as noted PAF with RVR upon arrival. CT with subcapital comminuted superior lateral displaced fracture of the left femoral neck, CT abdomen pelvis given trauma with a noted 1.8 cm enhancing mass in the right hepatic lobe of the liver, CT thorax, cervical spine and head with no acute findings, plain film of the left forearm, left humerus and hand unremarkable with no acute osseous injury. Orthopedic surgery consulted, Dr. Potter and patient underwent left hemiarthroplasty 02/05/2022. Patient right fifth metacarpal bone with initially cast placed, removed by orthopedic surgery on 02/12/2022 with repeat films following removal noting adequate alignment and healing of the fifth metacarpal space shaft fracture. 02/12/2022 orthopedic transition to brace for the healing fracture of the neck of the right fifth metacarpal bone to be worn for protective purposes until follow-up. For left hip fracture patient cleared postoperatively to resume anticoagulation, weightbearing as tolerated, anterior hip precautions, dressing discontinued postop day 5 and left open to air, Steri- Strips to fall off on their own, follow-up with office in 2 weeks for films and wound check. PT/OT/case management consulted and following with plan skilled transition. EKG at outside facility with atrial fibrillation with RVR. Patient initially administered Cardizem bolus and transition to a drip eventually transitioned to oral metoprolol with increase to 100 twice daily with several attempts also with digoxin and eventual placement on amiodarone 200 mg twice daily with plan for wean after 7 days per cardiology direction. Echocardiogram obtained with EF 50 to 55% with no wall motion abnormalities. Cardiology evaluated patient preoperatively given history and cleared for OR. Post OR patient cleared for resumption of chronic anticoagulant therapy although given her fall history she certainly is a high risk patient and this will need to be continue to monitor. Currently given patient INR greater than 2 plan continuation of Coumadin 1 mg only with continued INR trending, 02/12/2022 INR 2.9-->02/13/2022 INR 2.6. Patient with significant intermittent difficulties during a presentation with underlying history, continued on Zyprexa, certainly high risk for delirium secondary to baseline underlying dementia. Vitamin D level obtained and noted be 18.8, will continue ergocalciferol weekly for 8 weeks with repeat ergocalciferol level after therapy is completed with goal 50. Patient given clinical improvement and stability transitioned once precertification obtained to TCU for ongoing care with planned follow-up with PCP, Orthopedic surgery and Cardiology services. Discharge Time: > 35 Minutes DAY OF DISCHARGE PROGRESS NOTE: Subjective: Patient without acute event overnight per self and nursing report. Patient's remained calm and was not severely agitated per nursing report. Patient is morning states that she is feeling well and has no specific complaints. Its been several days since she is needed any pain medications. Patient denies fever, chills, nausea, emesis, abdominal pain, chest pain or dyspnea. Patient agreeable to discharge to TCU given clinical stability. Patient will be discharged with follow-up with primary care physician, cardiology as well as orthopedic surgery. Objective: T 98.7, heart 79, BP 96/46, respiratory rate 18, 97% on 2 L nasal can nula. Physical Examination: General: awake, alert, oriented to self, place and some recent events, able to have some conversation but definitely baseline notable underlying dementia, currently calm, denies any complaints currently. Skin: normal color, turgor, no icterus, cyanosis except for expected stage ecchymoses as well as postoperative incision status post hip fracture repair, no drainage noted. HEENT: AT/NC, EOMI, PERRLA, mildly dry MM. Lungs: CTA bilaterally, moderate effort, mild decrease BL bases, no rales, ronchi or wheezing; Heart: Irregular, rate appropriate; no gallop, rub audible. Abdomen: soft, NTTP, ND, distant normal BS. Extremities: no cyanosis, no clubbing, status post recent fall with right foot fracture, splint in place, able to move fingers, mildly swollen, status post fall also with left hip fracture, edematous with ecchymoses as expected, moving extremity, no drainage from dressing. Neurological: patient awake, alert, oriented as noted, cognitive function di ffusely diminished baseline with underlying severe dementia, suspect still mildly reduced from baseline; pupils equally reactive to light and accomodation; cranial nerves II-XII grossly normal, moving all 4 extremities except extremely limited especially given history, improving slowly, severely global decreased Psychiatric: affect appears, currently flat, no acute evidence of depressive or anxiety feelings. Assessment and Plan: Please see hospital summary above. Weight / BMI Weight Weight: 141 lb 15.643 oz Body Mass Index (BMI) 20.6 ABG / Lab / Microbiology Data Result Diagrams: 02/13/22 05:15 02/13/22 05:15 Laboratory: Laboratory Results - last 24 hr 02/13/22 05:15: PT 27.6 H, INR 2.6 02/13/22 05:15: WBC 6.6, RBC 2.63 L, Hgb 9.0 L, Hct 27.8 L, MCV 105.7 H, MCH 34.2 H, MCHC 32.4, RDW Std Deviation 59.0 H, RDW Coeff of Dorota 17.3 H, Plt Count 238, MPV 9.7, Immature Gran % (Auto) 0.800, Neut % (Auto) 55.8, Lymph % (Auto) 28.5, [place] % (Auto) 10.5 H, Eos % (Auto) 3.8, Baso % (Auto) 0.6, Absolute Neuts (auto) 3.7, Absolute Lymphs (auto) 1.88, Nucleated RBC % 0 02/13/22 05:15: Sodium 142, Potassium 3.7, Chloride 115 H, Carbon Dioxide 23.0, Anion Gap 4 L, BUN 22 H, Creatinine 0.80, Estim Creat Clear Calc 56.36, Est GFR (MDRD) Af Amer 89, Est GFR (MDRD) Non-Af 73, BUN/Creatinine Ratio 27.4 H, Glucose 97, Calcium 7.6 L, Total Bilirubin 1.40 H, AST 69 H, ALT 38, Alkaline Phosphatase 341 H, Total Protein 4.7 L, Albumin 2.0 L, Globulin 2.7, Albumin/Globulin Ratio 0.7 L Microbiology: Microbiology 02/13/22 08:13 Nasal Secretion SARS-CoV-2 Antigen (Rapid) - Final 02/05/22 01:10 Nasal Secretion SARS-CoV-2 Antigen (Rapid) - Final Radiography Diagnostic Testing: Radiology Impression Hand X-Ray 02/12/22 08:50 IMPRESSION: Healing spiral fracture of the shaft of the fifth metacarpal bone. Electronically Signed: Cornelio Ashley MD at 9:07 EDT , Meaningful Use Info Meaningful Use Diagnoses (Choose all that apply): None applicable Discharge Plan Admission Admit Date/Time: 02/05/22 00:15 Primary Reason for Your Visit: L subcapital hip fracture, R wrist fracture, PAF w/ RVR Attending Provider: Sierra Duran Primary Care Provider: Michael Phillips Consulting Providers: Violet Patrick ; Garima Lyons ; Bill Pratt ; Jesus Barone ; Mikaela Murrieta ; Samuel Fritz ; Nahum Guidry ; Brian Cote ; Reji Durand ; Pool Izquierdo ; Tracy Cabrera ; Owen Kwan ; Justin Vaughan ; Heriberto Vallejo ; Jason Ballard ; Arian Howell DIGITAL PRODUCTION MANAGER ; Garima Townsend NP ; Ceci Harley ; Tae Potter ; Brian Jarquin ; Brenda Cano Instructions Patient Instructions: Understanding Hip Fractures, AFib Preventing Stroke, Wrist Fracture, AFib Additional Instructions / Restrictions: Mechanical fall, recurrent with left subcapital hip fracture and fracture of the neck of the right fifth metacarpal bone (right wrist fracture): OR with Dr. Potter and patient underwent left hemiarthroplasty 02/05/2022.?For left hip fracture patient cleared postoperatively to resume anticoagulation, weightbearing as tolerated, anterior hip precautions, dressing discontinued postop day 5 and left open to air, Steri-Strips to fall off on their own, follow-up with office in 2 weeks for films and wound check.? Patient right fifth metacarpal bone with initially cast placed, removed by orthopedic surgery on 02/12/2022 with repeat films following removal noting adequate alignment and healing of the fifth metacarpal space shaft fracture. 02/12/2022 orthopedic transition to brace for the healing fracture of the neck of the right fifth metacarpal bone to be worn for protective purposes until follow- up.?Continue non-weight bearing until cleared per Orthopedic surgery. Paroxsymal atrial fibrillation with RVR with elevated cardiac enzymes associated: Patient initially administered Cardizem bolus and transition to a drip eventually transitioned to oral metoprolol with increase to 100 twice daily with several attempts also with digoxin and eventual placement on amiodarone 200 mg twice daily with plan for wean after 7 days per cardiology direction.?Echocardiogram obtained with EF 50 to 55% with no wall motion abnormalities.? Cardiology evaluated patient preoperatively given history and cleared for OR.? Post OR patient cleared for resumption of chronic anticoagulant therapy although given her fall history she certainly is a high risk patient and this will need to be continue to monitor.? Maintained on Coumadin 1 mg, 02/12/2022 INR 2.9--> 02/13/2022 INR 2.6 with goal INR 2-2.6 with continued co umadin alterations as needed to achieve appropriate goal. Patient remains high fall risk and LOW threshold to discontinue if recurrent falls. Amiodarone Titration plan: Continue amiodarone 200 mg daily UNTIL 02/19/22 One 02/19/22 transition to amiodarone 200 mg once daily Discharge Orders/Prescriptions Prescriptions: New metoprolol tartrate 100 mg Tablet 100 mg PO BID 30 Days Qty: 60 0RF sennosides-docusate sodium [Stool Softener-Stimulant Laxat] 8.6-50 mg Tablet 2 tab PO BID 30 Days Qty: 120 0RF olanzapine 10 mg Tablet 20 mg PO HS Qty: 30 0RF ergocalciferol (vitamin D2) [Vitamin D2] 1,250 mcg (50,000 unit) Capsule 1,250 mcg PO Q7D 56 Days Qty: 8 0RF Rx Instructions: Continue ergocalciferol weekly for 8 weeks with repeat ergocalciferol level after therapy. amiodarone 200 mg Tablet 200 mg PO BID 5 Days Qty: 11 0RF Rx Instructions: Continue amiodarone 200 mg BID until fininished 02/18/22, transition after to once daily. amiodarone 200 mg Tablet 200 mg PO DAILY 30 Days Qty: 30 0RF Rx Instructions: START ONCE DAILY ON 02/19/22 FOLLOWING TRANSITION OFF 200 MG BID REGIMEN. pantoprazole 40 mg Tablet,Delayed Release (Dr/Ec) 40 mg PO DAILY 30 Days Qty: 30 0RF warfarin [Jantoven] 1 mg Tablet 1 mg PO 1700 30 Days Qty: 30 0RF acetaminophen [Tylenol] 325 mg capsule 650 mg PO Q4H PRN (Reason: Pain 1-10/fever) 30 Days Qty: 10 0RF Continued atorvastatin 20 mg Tablet 20 mg PO DAILY alendronate 70 mg Tablet 70 mg PO QWEEK fluticasone propionate 50 mcg/actuation [place],Suspension 2 spray INTRANASAL DAILY PRN (Reason: Congestion) Rx Instructions: administer into each nostril Discontinued omeprazole 40 mg Capsule,Delayed Release(Dr/Ec) 40 mg PO DAILY No Action olanzapine 5 mg Tablet 20 mg PO QHS warfarin 2 mg tablet 2 mg PO DAILY Label Comments: TAKE 1 TABLET BY MOUTH EVERY DAY Referrals / Follow Up: Michael Phillips MD [Primary Care Provider] - (Follow-up within 1-2 days SNF discharge and may also consider given complex presentation PCP follow-up 1-2 weeks post-discharge hospital also.) Tae Potter MD [Med Staff - Active Staff] - (Follow-up in 2 weeks for repeat films and incision check.) Ceci Ely PA [Med Staff - Adv Practice Prof] - (Please follow-up within 1-2 week to review admission and assure continued stability on 02/19/22 amiodarone transition.) Disposition Disposition (needs filled in before D/C Order can be placed): Detention Facility Charges/Coding Visit Charges Inpatient E&M: 86175 Disch Hosp
[2022-02-13 09:24] VITALS: BP 91/56; PULSE 67; RESP 18; TEMP 36.7; O2SAT 97
[2022-02-13] MEDS: Pantoprazole Sodium 40 MG Tablet PO (09:28)
[2022-02-13] MEDS: Amiodarone 200 MG Tablet PO (09:28)
== END 2022-02-13 10:50 | disposition skilled nursing facility (03) | DRG 521 ==
PROVIDERS: Internal Medicine; Nurse Practitioner Family; Specialist; Admitting Provider Internal Medicine; PCP Family Medicine; Visit Provider Family Medicine
PROC: 0SRS01A Replacement of Left Hip Joint, Femoral Surface with Metal Synthetic Substitute, Uncemented, Open Approach (ICD-10-PCS; CPT 27125; principal; 2022-02-05 07:40)
DX: S72.012A Unspecified intracapsular fracture of left femur, initial encounter for closed fracture (principal); G92.8 Other toxic encephalopathy; J69.0 Pneumonitis due to inhalation of food and vomit; F02.81 Dementia in other diseases classified elsewhere, unspecified severity, with behavioral disturbance; E87.0 Hyperosmolality and hypernatremia; E46 Unspecified protein-calorie malnutrition; F05 Delirium due to known physiological condition; G30.9 Alzheimer's disease, unspecified; I48.0 Paroxysmal atrial fibrillation; D53.9 Nutritional anemia, unspecified; E87.8 Other disorders of electrolyte and fluid balance, not elsewhere classified; E55.9 Vitamin D deficiency, unspecified; W01.0XXA Fall on same level from slipping, tripping and stumbling without subsequent striking against object, initial encounter; E86.0 Dehydration; E78.5 Hyperlipidemia, unspecified; K21.9 Gastro-esophageal reflux disease without esophagitis; S62.336D Displaced fracture of neck of fifth metacarpal bone, right hand, subsequent encounter for fracture with routine healing; S62.326D Displaced fracture of shaft of fifth metacarpal bone, right hand, subsequent encounter for fracture with routine healing; M81.0 Age-related osteoporosis without current pathological fracture; R77.8 Other specified abnormalities of plasma proteins; R29.6 Repeated falls; R33.9 Retention of urine, unspecified; Z66 Do not resuscitate; Z68.20 Body mass index [BMI] 20.0-20.9, adult; Z96.641 Presence of right artificial hip joint; Z79.01 Long term (current) use of anticoagulants; Z79.899 Other long term (current) drug therapy; Z28.310 Unvaccinated for COVID-19; Z28.9 Immunization not carried out for unspecified reason
CPT/HCPCS: 36415; 36600; 70450; 73130; 73502; 76000; 80048; 80053; 81001; 82140; 82306; 82550; 82803; 83735; 84443; 84484; 85014; 85018; 85025; 85610; 86850; 86900; 86901; 87426; 88305; 88311; 92507; 92526; 92610; 93005; 93306; 97162; 97166; 97530; 97535; 97802; 97803; 99251; C1776; J7030; J7040; J7050; J7120; J7168; A4216; G0463; J2405; J3490

== ENCOUNTER 2022-02-13 11:10 | Inpatient (IN) | payer MEDICARE, MEDICAID, SELFPAY ==
[2022-02-13 11:27] VITALS: BP 94/45; PULSE 72; RESP 18; TEMP 36.7; O2SAT 97; BMI 23.0
[2022-02-13 14:00] VITALS: PULSE 72; RESP 18; O2SAT 93
[2022-02-13 14:30] VITALS: BP 88/46; PULSE 77; RESP 24; TEMP 36.6; O2SAT 95
[2022-02-13 14:40] VITALS: BP 103/49
--- NOTE | 2022-02-13 17:01 | HP.PCM_ITS ---
HPI - General General Date of Admission: 02/13/22 Date of Service: 02/15/22 Chief Complaint: Here for rehab. HPI Narrative CRISPIN MARSHALL, is a 76 Female who presents with followin02/05/2022 [facility] Emergency Department with fall. 02/05/2022 EKG atrial flutter with variable AV block, anterior infarct, age undetermined, cannot be excluded. 02/05/2022 Echo EF 50 - 55%. Normal Left ventricular systolic function. Mild aortic insufficiency. Atrial fibrillation with RVR treated with cardizem bolus/drip. INR 3.4, Urinalysis negative, Troponiin 62. CT showed left hip fracture, L2 compression fracture, liver mass. 02/05/2022 Admit to [facility]. Pain control, Orthopedics, PT/OT for left hip fracture. Cardiology consult for preoperative risk assessment Cardizem drip for atrial fibrillation with RVR. Vitamin K to reverse coumadin. 02/05/2022 Dr. Potter performed left hip hemiarthroplasty. 02/06/2022 PT/OT for debility. Cardizem stopped, Metoprolol started for atrial fibrillation with RVR. ST for dysphagia. Zyprexa for dementia with behavioral disturbance. 02/07/2022 No pain. Resume warfarin for atrial fibrillation. 02/08/2022 More confused than baseline. Increase IV fluids for dehydration. IV fluids for hypernatremia. Increase Zyprexa to 20mg qhs for dementia with delirium. 02/09/2022 Low urine output, baseline confusion. Change normal saline to 1/2 normal saline for hypernatremia. Monitor INR for atrial fibrillation. 02/10/2022 Oral intake improved. Await Pre-Cert for discharge to [facility]. 02/11/2022 CT head for postoperative delirium. Hypernatremia resolved. 02/12/2022 Tachycardia, Confusion much improved. Pre-Cert for TCU. 02/13/2022 Admit to TCU with debility, here for rehabilitation, strengthening, prior to disposition determination. [facility] Medical History Chronic atrial fibrillation Dementia Hyperlipidemia Osteoporosis Vitamin D deficiency Home Medications alendronate 70 mg tablet 70 mg PO QWEEK bones 02/05/22 [History Last Taken Unknown] atorvastatin 20 mg tablet 20 mg PO DAILY cholesterol 02/05/22 [History Last Taken Unknown] fluticasone propionate 50 mcg/actuation nasal spray,suspension 2 spray intranasal DAILY PRN Congestion 02/05/22 [History Last Taken Unknown] warfarin 2 mg tablet 2 mg PO DAILY blood thinner 02/05/22 [History Last Taken Unknown] acetaminophen 325 mg capsule (Tylenol) 650 mg PO Q4H PRN Pain 1-10/fever 30 days #10 caps 02/13/22 [Rx Last Taken Unknown] amiodarone 200 mg tablet 200 mg PO BID heart 02/13/22 [History Last Taken Unknown] amiodarone 200 mg tablet 200 mg PO DAILY heart 02/13/22 [History Last Taken Unknown] ergocalciferol (vitamin D2) 1,250 mcg (50,000 unit) capsule (Vitamin D2) 1,250 mcg PO Q7D bone 02/13/22 [History Last Taken Unknown] metoprolol tartrate 100 mg tablet 100 mg PO BID BP 02/13/22 [History Last Taken Unknown] olanzapine 10 mg tablet 20 mg PO HS Check with primary doctor 02/13/22 [History Last Taken Unknown] pantoprazole 40 mg tablet,delayed release 40 mg PO DAILY reflux 02/13/22 [History Last Taken Unknown] sennosides 8.6 mg-docusate sodium 50 mg tablet (Stool Softener-Stimulant Laxative) 2 tab PO BID stool softeners 02/13/22 [History Last Taken Unknown] warfarin 1 mg tablet (Jantoven) 1 mg PO 1700 blood thinner 02/13/22 [History Last Taken Unknown] Allergy/AdvReac Type Severity Reaction Status Date / Time meloxicam [From Mobic] Allergy PT UNSURE Verified 02/05/22 00:18 OF REACTION amoxicillin [From Augmentin] AdvReac Other Verified 02/05/22 00:18 clavulanic acid AdvReac Other Verified 02/05/22 00:18 [From Augmentin] Surgical History H/O bilateral cataract extraction H/O bilateral salpingo-oophorectomy History of breast biopsy History of dilatation and curettage History of hysterectomy History of right hip replacement History of tonsillectomy Social History household members: none housing: house Smoking Status: Never smoker alcohol intake: never substance use type: does not use ROS Constitutional Constitutional: Denies chills, fever(s) or weight gain ENT HEENT: Denies headache(s), nasal congestion or nasal discharge Cardiovascular Cardiovascular: Denies chest pain or palpitations Respiratory/Chest Respiratory/Chest: Denies cough, excessive phlegm production or shortness of breath with exertion Gastrointestinal Gastrointestinal: Denies abdominal pain, nausea or vomiting Genitourinary Genitourinary: Denies dysuria Musculoskeletal Musculoskeletal: Denies joint pain or joint swelling Integumentary Integumentary: Denies rash or wounds Neurologic Neurologic: Denies focal weakness, numbness or tingling Psychiatric Psychiatric: Denies anxiety, auditory hallucinations, depression, homicidal ideation or suicidal ideation Vital Signs Vital Signs Vital Signs: 02/13/22 11:27 02/13/22 14:00 02/13/22 14:30 Temperature 98.0 F 97.9 F Temperature Source Temporal Temporal Pulse Rate 72 72 77 Pulse Rhythm Irregular Pulse Strength Normal (2+) Respiratory Rate 18 18 24 H Respiratory Effort Normal Respiratory Depth Normal Respiratory Pattern Normal Blood Pressure 94/45 L 88/46 L Blood Pressure Mean 61 60 Blood Pressure Source Monitor Monitor Blood Pressure Position Semi-Fowlers Supine Blood Pressure Location Right Arm Left Arm Pulse Ox 97 93 95 Oxygen Delivery Method Nasal Cannula Nasal Cannula Nasal Cannula Oxygen Flow Rate (L/min) 2 2 2 02/13/22 14:40 Temperature Temperature Source Pulse Rate Pulse Rhythm Pulse Strength Respiratory Rate Respiratory Effort Respiratory Depth Respiratory Pattern Blood Pressure 103/49 L Blood Pressure Mean 67 Blood Pressure Source Monitor Blood Pressure Position Blood Pressure Location Pulse Ox Oxygen Delivery Method Oxygen Flow Rate (L/min) Weight Weight: 68.748 kg Body Mass Index (BMI) 23.0 Physical Exam Const alert General Appearance: cooperative HEENT normocephalic Eyes PERRL and EOMs intact bilaterally Neck supple, no JVD and no carotid bruits Resp normal respiratory effort, normal air movement and clear to auscultation bilaterally Cardio regular rate and regular rhythm GI normal to inspection, nondistended, normoactive bowel sounds, non-tender and non-distended Extremity normal capillary refill Extremity Narrative: Right wrist splint. General Extremity: Negative for edema Skin no rashes or lesions noted General Skin Exam: no breakdown Psych affect normal Appearance: appropriate Results Lab / Micro Data Result Diagrams: 02/14/22 06:54 02/14/22 06:54 Assessment & Plan Assessment/Plan (1) Debility: (2) Subcapital fracture of left hip: QUALIFIERS: Encounter type: initial encounter Fracture type: cl osed Qualified Code(s): S72.012A - Unspecified intracapsular fracture of left femur, initial encounter for closed fracture (3) Compression fracture of L2: (4) Liver mass: (5) Hypernatremia: (6) Postoperative delirium: (7) Alzheimer disease: (8) Major neurocognitive disorder due to Alzheimer's disease, with behavioral disturbance: (9) Osteoporosis: (10) Atrial fibrillation: (11) Recurrent falls: PLAN: Plan 76 year old female with below past medical history hospitalized for left hip fracture, underwent left hip hemiarthroplasty 02/05/[address] Potter, complicated by atrial fibrillation with rapid ventricular response, h ypernatremia, postoperative delirium, admitted to TCU with debility, here for rehabilitation, strengthening, prior to disposition determination. * Debility - PT/OT. * Dysphagia - ST. * Pain - Tylenol 1000mg q6h prn pain (1-10). * Bowel - senna/colace 2 tablets bid, Dulcolax 10mg daily prn. * Adult immunization - Administer pneumonia vaccine, covid19 vaccine, flu vaccine as appropriate. * DVT prophylaxis - Not necessary, on warfarin. * Osteoporosis - Alendronate 70mg qweek. * Atrial fibrillation - Metoprolol 100mg bid, Amiodarone 200mg bid thru 02/18/2022, then 200mg daily, Warfarin 1mg daily, monitor INR. * Hyperlipidemia - Atorvastatin 20mg qhs. * Vitamin D deficiency - D2 1.25mg qweek x 8 doses. * Allergic rhinitis - Flonase 2 sprays daily prn. * Skin irritation - Calmoseptine topical bid. * Postoperative delirium - Zyprexa 20mg qhs, GDR as appropriate. * GERD - Pantoprazole 40mg daily. * Liver mass - Order liver liver ultrasound.
[2022-02-13] MEDS: Menthol/Lanolin/Calamine/Znox 113 GM Tube 1 APPLIC TOPICAL (17:50)
[2022-02-13 17:54] VITALS: BP 103/49; PULSE 77
[2022-02-13] MEDS: Amiodarone 200 MG Tablet PO (17:56)
[2022-02-13] MEDS: Senna/Docusate Sodium 1 Tablet 2 TABLET PO (17:57)
[2022-02-13] MEDS: Atorvastatin Calcium 20 MG Tablet PO (20:48)
[2022-02-13] MEDS: OLANZapine 10 MG Tablet 20 MG PO (20:48)
[2022-02-14 04:26] VITALS: BP 100/60; PULSE 90
[2022-02-14] MEDS: Metoprolol Tartrate 100 MG Tablet PO ×2 (04:26→17:08)
[2022-02-14] MEDS: Pantoprazole Sodium 40 MG Tablet PO (04:30)
[2022-02-14] MEDS: Amiodarone 200 MG Tablet PO ×2 (04:31→17:03)
[2022-02-14] MEDS: Menthol/Lanolin/Calamine/Znox 113 GM Tube 1 APPLIC TOPICAL ×2 (04:31→17:01)
[2022-02-14] MEDS: Senna/Docusate Sodium 1 Tablet 2 TABLET PO ×2 (04:31→17:02)
[2022-02-14] MEDS: Alendronate Sodium 70 MG Tablet PO (04:32)
[2022-02-14 07:15] LABS: Absolute Lymphocyte Count 1.54 X10^3/uL (0.83-4.51); Absolute Neutrophil Count 8.7 X10^3/uL (2.0-7.7); Basophil# 0.04 X10^3/uL; Basophil% 0.4 % (0-1); Eosinophil# 0.16 X10^3/uL; Eosinophils% 1.4 % (0-5); Hemoglobin 9.1 g/dL (12.0-15.0); Lymphocyte # 1.54 X10^3/ul (0.83-4.51); Lymphocyte % 13.7 % (19-41); Mean Corp Hgb Conc 31.4 g/dL (32-36); Mean Corpuscular Hgb 34.1 pg (27.0-32.0); Mean Corpuscular Volume 108.6 fL (81-99); Mean Platelet Vol. 9.7 fl (6.2-12.0); Monocyte# 0.78 X10^3/uL; Monocyte% 6.9 % (0-10); NRBC Flagged by Analyzer 0 % (0-5); Neutrophil # 8.67 X10^3/uL (2.7-7.7); Neutrophil % 76.8 % (47-70); Platelet Count 251 K/mm3 (150-450); RBC Distribution Width CV 18.5 % (11.6-14.6); RBC Distribution Width SD 61.3 fl (35.1-43.9); Red Blood Count 2.67 M/mm3 (4.2-5.4); White Blood Count 11.3 K/mm3 (4.4-11.0)
[2022-02-14 07:39] LABS: Anion Gap 4 (5-15); BUN 19 mg/dL (7-18); Calcium,Total 8.2 mg/dL (8.5-10.1); Chloride 117 mmol/L (98-107); EST Glomerular Filtration Rate 86 mL/min (>60); Est Glom Filt Rate - Afr Amer 104 mL/min (>60); Estimated Creatinine Clearance 46.77 ml/min; Glucose 94 mg/dL (74-106); Potassium 3.6 mmol/L (3.5-5.1); Sodium Level 145 mmol/L (136-145)
[2022-02-14 08:37] VITALS: O2SAT 95
[2022-02-14] MEDS: Tuberculin,Purif.prot.deriv. 50 TU/ML Vial 0.1 ML ID (11:21)
--- NOTE | 2022-02-14 12:50 | NURSING ---
Addendum entered by Romana Powell 02/14/22 18:07: updated dr morrison on UA results. new order for cefdinir BID x7 days first dose now. Addendum entered by Romana Powell 02/14/22 13:07: updated dr morrison, new order UA and culture Original Note: PT URINE TEA COLOR,CLOUDY AND STRONG SMELLING. RN AWARE.
[2022-02-14 15:00] VITALS: BP 103/45; PULSE 80; RESP 18; O2SAT 91
--- NOTE | 2022-02-14 15:21 | NURSING ---
AID CALLED THIS NURSE TO PT ROOM. AID STATED SHE HEARD ALARM GOING OFF AND CHECKED ON PT AND FOUND PT. THIS NURSE SAW PT WAS HOLDING ON TO BED RAIL BESIDE BED,ONE KNEE ON GROUND AND ONE STILL UP. ASKED PT WHERE SHE WAS GOING PT STATED HOME. X3 STAFF TO GET PT BACK IN BED WITH GATE BELT. ASKED PT IF SHE WAS HAVING ANY PAIN PT STATED NO. VITALS DONE,NO SIGNS OF ANY CUTS OR NEW BRUISES. MATS WERE PUT DOWN ON EACH SIDE OF BED ON FLOOR. WILL GET HIGH LOW BED. RN, AND FAMILY AWARE. WILL CONTINUE TO MONITOR.
[2022-02-14 15:27] VITALS: BP 102/48; PULSE 85; RESP 20; TEMP 37.2; O2SAT 94
[2022-02-14 15:52] LABS: Mucous, Urine 0 SEEN /hpf (<or=2+); Red Blood Cells-Urine 0 SEEN /hpf (0-5); Squamous Epithelial Cells - UA 0 SEEN /hpf (5-10)
[2022-02-14 15:56] LABS: Color, Urine Amber (Yellow); Glucose, Dipstick Normal (Normal); Ketone-Dipstick Negative (Negative); Leukocyte Esterase-Dipstick 500 /ul (Negative); Nitrite-Dipstick Negative (Negative); Occult Blood-Urine 25 /ul (Negative); Protein-Dipstick Negative (Negative); Specific Gravity, Urine 1.015 (1.002-1.030); Urine Bilirubin Dipstick Negative (Negative); Urine Clarity Sl. Cloudy (Clear); Urine Urobilinogen 4 mg/dl (Normal)
[2022-02-14 16:27] LABS: Bacteria 2+ /hpf (None Seen); White Blood Cells 10-25 SEEN /hpf (0-5)
[2022-02-14] MEDS: Acetaminophen 500 MG Tablet 1000 MG PO (16:59)
[2022-02-14 17:08] VITALS: BP 110/55; PULSE 84
[2022-02-14 17:13] VITALS: BP 110/55; PULSE 84
--- NOTE | 2022-02-14 18:56 | NURSING ---
UP DATED SON ON PT UA RESULTS.
[2022-02-14] MEDS: OLANZapine 10 MG Tablet 20 MG PO (20:22)
[2022-02-14] MEDS: Atorvastatin Calcium 20 MG Tablet PO (20:22)
[2022-02-14] MEDS: Cefdinir 300 MG Capsule PO (20:22)
[2022-02-15] MEDS: Menthol/Lanolin/Calamine/Znox 113 GM Tube 1 APPLIC TOPICAL ×2 (05:14→16:36)
[2022-02-15] MEDS: Cefdinir 300 MG Capsule PO ×2 (05:14→16:38)
[2022-02-15] MEDS: Senna/Docusate Sodium 1 Tablet 2 TABLET PO ×2 (05:14→16:38)
[2022-02-15] MEDS: Pantoprazole Sodium 40 MG Tablet PO (05:14)
[2022-02-15] MEDS: Amiodarone 200 MG Tablet PO ×2 (05:14→16:37)
[2022-02-15 05:20] VITALS: BP 94/49; PULSE 859
[2022-02-15 12:58] LABS: International Normalized Ratio 2.6; Prothrombin Time (Protime)PT. 27.9 SECONDS (11.7-14.9)
--- NOTE | 2022-02-15 15:00 | US_ITS ---
STUDY: ABDOMINAL ULTRASOUND - RIGHT UPPER QUADRANT REASON FOR VISIT: Female, 76 years old Liver mass noted on CT. TECHNIQUE: Ultrasound evaluation of the right upper quadrant was performed with real-time and static lewis-scale imaging. TECHNICAL QUALITY: Suboptimal COMPARISON: No comparison CT of reported liver mass. FINDINGS: Liver: The liver shows mild micronodular contour on some of the images suspicious for cirrhotic morphology. Normal size, 12.9 cm in craniocaudal length. No focal mass lesion is exemplified. Color flow seen in sample hepatic veins near the hepatic venous confluence. The direction of portal flow is hepatopetal. Portal vein within the liver measures 13 mm in diameter, distended. Gallbladder: Gallbladder is distended measuring 10.7 cm in length. The gallbladder wall measures 2.1 mm. There is a negative sonographic Marin''s sign. There is no pericholecystic fluid. There are no gallstones however there is layering debris consistent with sludge. Common Bile Duct (C.B.D.): The common bile duct measures 6.9 mm. Pancreas: Pancreas shows diffusely increased echogenicity likely representing some fatty atrophy. No focal mass. No ductal dilation. Right Kidney: 9.3 cm length kidney shows normal size and contour. No cortical thinning. No solid mass lesion. 1.4 cm diameter anechoic cyst within the renal pelvis suggesting peripelvic cysts. No calyceal dilation. No hydronephrosis. Normal color flow seen in the right renal hilum. US/Liver IMPRESSION: Suboptimal quality of exam. No hepatic mass lesion visible. Suggestion of nodular contour on some of the images may represent cirrhotic morphologic changes. Correlate clinically. Mildly distended gallbladder containing layering sludge. No gallbladder wall thickening or pericholecystic fluid and negative sonographic Marin''s sign; no other evidence of cholecystitis. Distended intrahepatic portal vein with bidirectional flow suggested. No waveform assessment. Consider short-term follow-up or multiplanar imaging. Electronically Signed: Enrique Gerard DO at 20:06 EDT ,
[2022-02-15 15:44] VITALS: BP 92/51; PULSE 82; RESP 14; TEMP 36.2
--- NOTE | 2022-02-15 15:45 | CASEMGMT ---
Social Work SW received voicemail from HERMAN inquiring about insurance. Attempted to complete initial assessment with pt, but pt unable to answer questions, BIMS or MOLST. SW returned call, answered questions and completed initial assessment. JENNIFER explained [employer] insurance with NRD 02/24 and continued stay is not guaranteed. Inquired about PLOF and DC goals. HERMAN explained pt lived at home with until December when was transferred to [facility]. and were assisted each other at home. Pt's cognition was impaired, needing some cues but could have conversation and remember family members. 's cognition was intact but is now physically incapable to live at home/assist pt. HERMAN states the goal is for pt to transfer to [facility] with LTC. Pt's son submitted Medicaid application in January; received pending #[id number]. SW to refer to [facility] closer to [place]. HERMAN explained pt did not have behaviors at baseline but was [facility] whom prescribed the Zyprexa at 20 mg. HERMAN requested TCU staff/Dr collaborate with pt's psych to ensure medications are ordered appropriately or if a new medication would need to be started, etc. JENNIFER verbally communicated this to RN and left written communication to Dr. Mendoza. HERMAN expressed appreciation for JENNIFER time and assistance. SW to continue to follow. Merissa Mccray, YVONNE MUROW
[2022-02-15 16:39] VITALS: PULSE 92
[2022-02-15] MEDS: Metoprolol Tartrate 100 MG Tablet PO (16:39)
[2022-02-15] MEDS: OLANZapine 10 MG Tablet 20 MG PO (20:03)
[2022-02-15] MEDS: Atorvastatin Calcium 20 MG Tablet PO (20:04)
[2022-02-15] MEDS: Acetaminophen 500 MG Tablet 1000 MG PO (20:06)
--- NOTE | 2022-02-16 01:48 | NURSING ---
Addendum entered by Kat Verma 02/16/22 02:29: EKG performed. Dr. Mendoza notified of elevated heart rate and arrhythmia. Ordered to give 0600 amiodorone and lopressor now. Original Note: At 0130, bed alarm began sounding. This nurse entered room and witnessed pt lowering herself onto her knees on the floor mats beside her bed. Pt was calling for help and very confused, having difficulty cooperating with staff to assist her back into bed. Pt assisted back into bed via gait belt and 3 assist. VS assessed at this time. BP was 100/52, apical pulse was 132 and irregular, SpO2 was 94%, oxygen had been removed and was reapplied at 2 liters per minute. RN aware.
--- NOTE | 2022-02-16 01:55 | EKG12_ITS ---
Test Reason : CP Blood Pressure : / mmHG Vent. Rate : 145 BPM Atrial Rate : 138 BPM P-R Int : 000 ms QRS Dur : 068 ms QT Int : 198 ms P-R-T Axes : 000 -03 236 degrees QTc Int : 307 ms Atrial fibrillation with premature ventricular or aberrantly conducted complexes Low voltage QRS Septal infarct (cited on or before 16-FEB-2022) Abnormal ECG When compared with ECG of 05-FEB-2022 01:06, Nonspecific T wave abnormality now evident in Inferior leads T wave inversion now evident in Lateral leads Confirmed by JULIANNE SETHI, SOBIA ([id number]), editor producer BARRY REYES ([id number]) on 02/18/2022 2:03:00 PM Referred By: JESSICA Confirmed By:SOBIA WHITAKER MD
[2022-02-16] MEDS: Acetaminophen 500 MG Tablet 1000 MG PO ×3 (02:22→20:55)
[2022-02-16] MEDS: Amiodarone 200 MG Tablet PO ×2 (02:22→18:15)
[2022-02-16 02:23] VITALS: BP 100/54; PULSE 145
[2022-02-16] MEDS: Metoprolol Tartrate 100 MG Tablet PO ×2 (02:23→18:19)
[2022-02-16] MEDS: Cefdinir 300 MG Capsule PO ×2 (06:16→18:16)
[2022-02-16] MEDS: Pantoprazole Sodium 40 MG Tablet PO (06:16)
[2022-02-16] MEDS: Senna/Docusate Sodium 1 Tablet 2 TABLET PO ×2 (06:16→18:16)
[2022-02-16] MEDS: Menthol/Lanolin/Calamine/Znox 113 GM Tube 1 APPLIC TOPICAL ×2 (06:21→20:01)
--- NOTE | 2022-02-16 09:13 | NURSING ---
CALLED PT SON TO SEE IF IT WAS OK FOR PT TO HAVE HER 2ND COVID BOOSTER AND IF SO HE NEEDED TO SIGN THE PAPER. SON STATED HE DID NOT WANT HER TO HAVE IT AT THIS TIME AND WILL THINK ABOUT IT. RN AWARE.
--- NOTE | 2022-02-16 12:13 | CASEMGMT ---
SW spoke with DIL whom agreed to bring in copies of advanced directives.
--- NOTE | 2022-02-16 14:03 | NURSING ---
PER THERAPY PT DID WELL WITH OUT OXYGEN AND WAS HOLDING FROM 94%-97% WHILE WALKING. THIS NURSE CHECKED PT WHEN SHE WAS SLEEPING AND OXYGEN WAS 88%. PLACED 1L ON AND OXYGEN CAME BACK UP TO 92%.
--- NOTE | 2022-02-16 14:35 | NURSING ---
UP DATED SON ON A STAFF MEMBER TESTED POSITIVE FOR COVID AND THAT THE PT SLID OUT OF BED AGAIN AND WILL CALL HIM AND UPDATE HIM ON PT TEST RESULTS.
[2022-02-16 14:54] VITALS: BP 98/53; PULSE 98; RESP 16; TEMP 36.7; O2SAT 92
--- NOTE | 2022-02-16 14:56 | NURSING ---
Addendum entered by Romana Roland Andre 02/16/22 16:48: dr morrison updated, new order xanax restlessness/anxiety Original Note: AT 1400 RN CAME AND GOT THIS NURSE AND STATED PT WAS SITTING ON FLOOR BESIDE BED. ASKED WERE SHE WAS GOING,COULD NOT UNDER STAND WHAT PT SAID. ASSIST X2 TO GET BACK IN BED NO SIGNS OF MORE BRUISING OR ABRASIONS. VITALS WERE DONE. ASKED PT IF SHE HAD ANY PAIN,PT STATED NO. JESSICA SESAY, PT SON AND BRIDGETT NOTIFIED. PT WILL NOT STAY STILL OR SLEEP! CAT NAPS FOR ABOUT 10 MINS. PT HAS A ALARM,HIGH/LOW BED AND MATS ON FLOOR. LEFT NOTE FOR .
--- NOTE | 2022-02-16 16:10 | CHAPLAIN ---
Type of Pastoral Visit _x__ Initial Visit ___ Follow-up Visit ___ On-call Visit ___ General Patient Visit ___ Spiritual Assessment ___ Family Conference ___ Bereavement ___ Rapid Response ___ Code Blue ___ Other (describe below) Pastoral Care Referral From ___ Patient ___ Family _x__ Nurse ___ Physician ___ Solar [employer] ___ Marketing Outreach Coordinator ___ Other (describe below) Sacrament/Intervention _x__ Active listening ___ Anointing ___ Alevism ___ Bereavement ___ Communion ___ Sepideh exploration ___ _x__ Life review _x__ Prayer ___ Reconciliation ___ Sacrament of Sick _x__ Supportive presence ___ Wedding ___ Other (describe below) Pastoral Comments entered room and CUSTOMER EXPERIENCE INTERN was tucking patient back into bed; sat at bedside and asked questions of the patient; pt conversed but also tried to remove her sheet and blanket during the whole conversation; tried to keep patient focused on our conversation and while pt answered questions she was also distracted in her situation; 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
--- NOTE | 2022-02-16 16:34 | PHA.CONS_ITS ---
TCU RX Drug Regimen Review Subjective: TCU Admission. 76 YOF presented to outside ER with a fall. Admitted to [facility] and hospitalized for left hip fracture, underwent left hip hemiarthroplasty 02/05/[address] Potter, complicated by atrial fibrillation with rapid ventricular response, hypernatremia, postoperative delirium, Admitted to TCU with debility for strengthening and rehabilitation. Objective: Allergies meloxicam [From Mobic] Allergy (Verified 02/05/22 00:18) PT UNSURE OF REACTION amoxicillin [From Augmentin] Adverse Reaction (Verified 02/05/22 00:18) Other clavulanic acid [From Augmentin] Adverse Reaction (Verified 02/05/22 00:18) Other Current Medications Generic Name Dose Route Start Last Admin Trade Name Freq PRN Reason Stop Dose Admin Acetaminophen 1,000 mg 02/13/22 17:18 02/16/22 12:55 Acetaminophen 500 Mg Tablet PO 1,000 mg Q6H PRN PRN Administration Pain Score 1-10 Alendronate Sodium 70 mg 02/14/22 06:00 02/14/22 04:32 Alendronate Sodium 70 Mg Tablet PO 70 mg QWEEK MARTA Administration Alprazolam 0.25 mg 02/16/22 16:13 Alprazolam 0.25 Mg Tablet PO TID PRN PRN ANXIETY/RESTLESSNESS/SLEEP Amiodarone HCl 200 mg 02/13/22 18:00 02/16/22 02:22 Amiodarone 200 Mg Tablet PO 02/18/22 18:01 200 mg BID MARTA Administration Amiodarone HCl 200 mg 02/19/22 06:00 Amiodarone 200 Mg Tablet PO DAILY MARTA Atorvastatin Calcium 20 mg 02/13/22 22:00 02/15/22 20:04 Atorvastatin Calcium 20 Mg Tablet PO 20 mg QHS MARTA Administration Calamine/Phenol 1 applic 02/13/22 18:00 02/16/22 06:21 Menthol/Lanolin/Calamine/Znox 113 Gm Tube TOPICAL 1 applic BID MARTA Administration Protocol Cefdinir 300 mg 02/14/22 18:30 02/16/22 06:16 Cefdinir 300 Mg Capsule PO 02/21/22 18:31 300 mg Q12 MARTA Administration Ergocalciferol 1.25 mg 02/20/22 08:00 Ergocalciferol 1.25 Mg (50, 000 Unit) Capsule PO 10/08/22 08:01 Q7D [facility] Fluticasone Propionate 2 spray 02/13/22 12:12 Fluticasone 0.05% 1 [place] Nasal.Sry NASAL DAILY PRN Congestion Metoprolol Tartrate 100 mg 02/13/22 18:00 02/16/22 02:23 Metoprolol Tartrate 100 Mg Tablet PO 100 mg BID MARTA Administration Nutritional Formula (Lactose Free) 120 ml 02/15/22 14:00 02/16/22 12:52 Ensure Enlive 120 Ml Liquid PO 120 ml TID MARTA Administration Olanzapine 20 mg 02/13/22 22:00 02/15/22 20:03 Olanzapine 10 Mg Tablet PO 20 mg HS MARTA Administration Pantoprazole Sodium 40 mg 02/14/22 06:00 02/16/22 06:16 Pantoprazole Sodium 40 Mg Tablet PO 40 mg DAILY MARTA Administration Senna/Docusate Sodium 2 tablet 02/13/22 18:00 02/16/22 06:16 Senna/Docusate Sodium 1 Tablet PO 2 tablet BID MARTA Administration Tuberculin PPD 0.1 ml 02/21/22 10:00 Tuberculin,Purif.Prot.Deriv. 50 Tu/Ml Vial ID 02/21/22 10:01 X1 ONE Warfarin Sodium 1 mg 02/13/22 17:00 02/15/22 16:36 Warfarin 1 Mg Tablet PO 1 mg 1700 MARTA Administration Problem List (Last Reviewed 02/13/22 @ 17:[address] Jack Mendoza MD) Recurrent falls (Acute) Atrial fibrillation (Acute) Osteoporosis (Acute) Major neurocognitive disorder due to Alzheimer's disease, with behavioral distu rbance (Acute) Alzheimer disease (Acute) Postoperative delirium (Acute) Hypernatremia (Acute) Liver mass (Acute) Compression fracture of L2 (Acute) Debility (Acute) Subcapital fracture of left hip (Acute) Vital Signs Temp Pulse Resp BP Pulse Ox O2 Del Method O2 Flow Rate 98.0 F 98 16 98/53 L 92 Nasal Cannula 2 02/16/22 14:54 02/16/22 14:54 02/16/22 14:54 02/16/22 14:54 02/16/22 14:54 02/16/22 14:54 02/16/22 15:04 Oxygen Flow Rate (L/min) 2 Oxygen Delivery Method Nasal Cannula Weight: 70.443 kg Body Mass Index (BMI) 23.0 Sodium 145 mmol/L (136-145) 02/14/22 06:54 Potassium 3.6 mmol/L (3.5-5.1) 02/14/22 06:54 Chloride 117 mmol/L (98-107) H 02/14/22 06:54 Carbon Dioxide 24.0 mmol/L (21.0-32.0) 02/14/22 06:54 Anion Gap 4 (5-15) L 02/14/22 06:54 BUN 19 mg/dL (7-18) H 02/14/22 06:54 Creatinine 0.70 mg/dL (0.55-1.02) 02/14/22 06:54 Est GFR (MDRD) Af Amer 104 mL/min (>60) 02/14/22 06:54 Est GFR (MDRD) Non-Af 86 mL/min (>60) 02/14/22 06:54 BUN/Creatinine Ratio 27.0 RATIO (10-20) H 02/14/22 06:54 Glucose 94 mg/dL (74-106) 02/14/22 06:54 Assessment/Plan: 1. Pain: acetaminophen 1000mg PO Q6H PRN pain (1-10). Please continue to monitor for S/S of increased pain and PRN usage. Resident has used 4 doses for pain of 5-7 for hip/wrist/generalized pain. 2. Bowel: senna/docusate 2T PO BID. Please continue to monitor for constipation. Last documented bowel movement 02/15/22. 3. Atrial fibrillation: metoprolol tartrate 100 mg PO BID, amiodarone 200mg PO BID thru 02/18/22 then 200mg PO daily, warfarin 1mg PO dinner. Please continue to monitor INR level (last 2.6), S/S of bleeding/bruising, blood pressure (last 98/53), heart rate (last 98), and LFTs (last 02/13/22). 4. Osteoporosis: alendronate 70mg PO weekly. Please continue to monitor BMD, jaw pain, calcium (last 8.2), creatinine (last 0.70 mg/dL, CrCl 66.8 mL/min), and vitamin D level (last 18.8). Please administer on an empty stomach first thing in the morning with a full glass of water. 5. Hyperlipidemia: atorvastatin 20mg PO QHS. Please consider ordering a lipid panel now and then annually as clinically appropriate. Resident does not have a lipid panel on file. Thanks. Please continue to LFTs and for muscle pain.? 6. Vitamin D deficiency: ergocalciferol 1.25mg qweek thru 04/10/22. Please continue to monitor vitamin D level (last 02/05/22) 7. Allergic rhinitis: fluticasone 2 sprays nasal daily PRN congestion. Continue to monitor for S/S of allergies and PRN usage. 8. UTI: cefdinir 300mg PO BID thru 02/21/22. 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 9. GERD: pantoprazole 40mg PO daily. Please continue to monitor for S/S of GERD and diarrhea. Assessment/Plan for indications treated with psychotropic medications: 1. Postoperative delirium/dementia: olanzapine 20mg PO QHS. Please continue to monitor, blood pressure (last 98/53), heart rate (last 98), glucose (last 94mg/dL), and creatinine (last 0.70 mg/dL, CrCl 66.8 mL/min). Please consider GDR by 08/2022 or as soon as possible if clinically appropriate. Thanks. This medication is on the BEERs list for increased risk of CVA and greater rate of cognitive decline and mortality in persons with dementia receiving atypical antipsychotics. 2. Anxiety/restlessness/sleep: alprazolam 0.25mg PO TID PRN anxiety/restlessness/sleep. This medication was just started and resident has not yet received a dose. GDR not appropriate. Medical chart and medication regimen reviewed. The following medication irregularities or issues were identified: *1. Atorvastatin 20mg PO QHS. Please consider ordering a lipid panel now and then annually as clinically appropriate. Resident does not have a lipid panel on file. Thanks. *2. Olanzapine 20mg PO QHS. Please consider GDR by 08/2022 or as soon as possible if clinically appropriate. This medication is on the BEERs list for increased risk of CVA and greater rate of cognitive decline and mortality in persons with dementia receiving atypical antipsychotics. Thanks. Date of Note:: 02/16/22
[2022-02-16 18:19] VITALS: BP 114/59; PULSE 128
[2022-02-16] MEDS: Atorvastatin Calcium 20 MG Tablet PO (20:55)
[2022-02-16] MEDS: ALPRAZolam 0.25 MG Tablet PO (20:55)
[2022-02-16] MEDS: OLANZapine 10 MG Tablet 20 MG PO (20:56)
[2022-02-17 04:44] VITALS: BP 86/54; PULSE 111
[2022-02-17] MEDS: Cefdinir 300 MG Capsule PO (04:44)
[2022-02-17] MEDS: Amiodarone 200 MG Tablet PO ×2 (04:44→17:58)
[2022-02-17] MEDS: Senna/Docusate Sodium 1 Tablet 2 TABLET PO ×2 (04:44→17:56)
[2022-02-17] MEDS: Pantoprazole Sodium 40 MG Tablet PO (04:45)
[2022-02-17] MEDS: ALPRAZolam 0.25 MG Tablet PO (04:52)
[2022-02-17] MEDS: Acetaminophen 500 MG Tablet 1000 MG PO ×2 (04:53→22:03)
[2022-02-17] MEDS: Menthol/Lanolin/Calamine/Znox 113 GM Tube 1 APPLIC TOPICAL ×2 (04:54→18:00)
[2022-02-17 06:30] VITALS: O2SAT 94
--- NOTE | 2022-02-17 09:02 | NURSING ---
[facility] called and wanted patient to get earlier appointment. [facility] was called and stated they could pick patient up at 1215 for 1315 appointment. Son was called and updated as well as [facility].
--- NOTE | 2022-02-17 09:57 | CASEMGMT ---
Social Work IDT met with patient and son via conference call for care plan meeting. Discussed patient's progress in PT/OT/ST/SN. Explained [facility] insurance with NRD 02/24 and continued stay is not guaranteed. Pt is new on O2 and increased confusion, impulsivity. Son confirmed the goal is for pt to DC to [facility] for LTC where is placed as well. SW to make referral to [facility] prior to insurance update. Reminded son to bring in advanced directives and sign admission paperwork for pt. SW to continue to follow to assist with DC planning. Merissa Mccray, LAMINATOR PREFORMS OPTICAL FABRICATION TECHNICIAN
--- NOTE | 2022-02-17 11:39 | CASEMGMT ---
Social Work Received call from Lizeth at [facility] that pt is active with services. A liaison will visit pt next week and follow her at [place]. YVONNE RileyW
[2022-02-17 13:59] VITALS: BP 93/44; PULSE 83; RESP 18; TEMP 36.4; O2SAT 93
[2022-02-17] MEDS: Nitrofurantoin Macrocrystals 100 MG Capsule PO (17:53)
[2022-02-17] MEDS: Atorvastatin Calcium 20 MG Tablet PO (22:01)
[2022-02-17] MEDS: Mirtazapine 15 MG Tablet 7.5 MG PO (22:01)
[2022-02-17] MEDS: OLANZapine 10 MG Tablet 20 MG PO (22:02)
[2022-02-18 05:44] LABS: International Normalized Ratio 2.9; Prothrombin Time (Protime)PT. 29.8 SECONDS (11.7-14.9)
[2022-02-18] MEDS: Menthol/Lanolin/Calamine/Znox 113 GM Tube 1 APPLIC TOPICAL ×2 (06:55→17:08)
[2022-02-18 06:57] VITALS: BP 100/51; PULSE 101
[2022-02-18] MEDS: Senna/Docusate Sodium 1 Tablet 2 TABLET PO ×2 (06:57→17:09)
[2022-02-18] MEDS: Metoprolol Tartrate 100 MG Tablet PO ×2 (06:57→17:09)
[2022-02-18] MEDS: Pantoprazole Sodium 40 MG Tablet PO (06:57)
[2022-02-18] MEDS: Amiodarone 200 MG Tablet PO ×2 (06:58→17:09)
[2022-02-18 07:00] VITALS: O2SAT 94
[2022-02-18] MEDS: Nitrofurantoin Macrocrystals 100 MG Capsule PO ×2 (09:21→17:10)
--- NOTE | 2022-02-18 11:59 | NURSING ---
PT AND FAMILY UPDATED ON POSITIVE COVID PT.
[2022-02-18 14:58] VITALS: BP 102/60; PULSE 101; RESP 18; TEMP 36.4; O2SAT 92
[2022-02-18 17:07] VITALS: BP 104/53; PULSE 84
[2022-02-18 17:09] VITALS: BP 104/53; PULSE 84
[2022-02-18] MEDS: Atorvastatin Calcium 20 MG Tablet PO (22:25)
[2022-02-18] MEDS: Mirtazapine 15 MG Tablet 7.5 MG PO (22:26)
[2022-02-18] MEDS: OLANZapine 10 MG Tablet 20 MG PO (22:26)
[2022-02-19 05:10] VITALS: BP 105/44; PULSE 103
[2022-02-19] MEDS: Metoprolol Tartrate 100 MG Tablet PO (05:10)
[2022-02-19] MEDS: Senna/Docusate Sodium 1 Tablet 2 TABLET PO ×2 (05:11→17:09)
[2022-02-19] MEDS: Amiodarone 200 MG Tablet PO (05:11)
[2022-02-19] MEDS: Pantoprazole Sodium 40 MG Tablet PO (05:12)
[2022-02-19] MEDS: Menthol/Lanolin/Calamine/Znox 113 GM Tube 1 APPLIC TOPICAL ×2 (05:17→17:11)
[2022-02-19 05:50] VITALS: BP 108/56; PULSE 103; RESP 22; O2SAT 88
--- NOTE | 2022-02-19 05:55 | NURSING ---
Addendum entered by Stephanie Lemus 02/19/22 08:04: Written communication left for Dr. Mendoza regarding patient lowered to floor by PELT DROPPER this AM, Dr. Mendoza on unit at this time. Original Note: Responded to sounding alarm, PELT DROPPER (Garima) observed at patient doorway requesting assist stating she had lowered patient to floor after patient impulsively stood up to get on toilet. Primary RN (Christina) called to room to assist. Head to toe assessment completed, no inward/outward rotation or shortening observed to any extremity. Patient alert to self per reported baseline from primary RN. PELT DROPPER (Garima) states she slowly lowered patient to floor and patient did not strike head . Assisted x3 staff assist to chair. No distress observed or reported. PELT DROPPER and primary nurse (Christina) complete patient care.
[2022-02-19] MEDS: Nitrofurantoin Macrocrystals 100 MG Capsule PO ×2 (07:51→17:10)
--- NOTE | 2022-02-19 08:02 | NURSING ---
Addendum entered by Jenni Douglas 02/19/22 08:10: New order for hip xray. Notified day shift RN that son was updated of fall but not order for xray, day shift RN will update family of new orders. Original Note: Updated Son Abraham of patient being weak and needing to be lowered to the floor this morning. Updated him that she had no known injuries and MD was aware with no new orders given. He had no questions, thanked RN for update.
--- NOTE | 2022-02-19 08:40 | RAD_ITS ---
STUDY: X-RAY - PELVIS AND LEFT HIP REASON FOR EXAM: Female, 76 years old. Fall, pain. TECHNIQUE: 3 views of the pelvis and hip. COMPARISON: None. FINDINGS: There is a non-specific bowel gas pattern. Normal visualized soft tissue structures. Normal bilateral iliac wings, sacroiliac joints and visualized sacrum. Normal bilateral superior and inferior pubic rami. Normal pubic symphysis. Normal bilateral ischial tuberosities. The patient is status post bilateral total hip replacement. There is good alignment. Degenerative changes of the lower lumbar spine. RAD/HIP, UNI W/ Pelvis 2-3 Views IMPRESSION: Status post bilateral total hip replacement. No acute abnormality is seen. Electronically Signed: Sarthak uJlien MD at 10:45 EDT ,
--- NOTE | 2022-02-19 08:56 | MDS.RN ---
Pain interview for DAIJA 03/23/22
--- NOTE | 2022-02-19 10:15 | PCA ---
Cancelled patient appt with [facility] this afternoon as patient is not feeling well. Therapy does not suggest w/c transport at this time . patient family ,, and [facility] notified of change . Dr. Potter will see patient Mar.2 @ 1:15p. and will revue x-rays that were done today .
[2022-02-19] MEDS: Acetaminophen 500 MG Tablet 1000 MG PO ×2 (12:14→20:16)
[2022-02-19] MEDS: ALPRAZolam 0.25 MG Tablet PO ×2 (12:52→20:11)
[2022-02-19 15:36] VITALS: BP 93/55; PULSE 98; RESP 18; TEMP 36.7; O2SAT 91
--- NOTE | 2022-02-19 15:47 | CASEMGMT ---
Social Work Referral made via fax to Humberto Mccray ,CURRICULUM WRITER MEDICAL PHYSICS RESEARCHER
--- NOTE | 2022-02-19 16:50 | CASEMGMT ---
Social Work Pt unable to participate in MDS assessment. Staff assessment completed. Merissa Mccray, HEAT TREATER HEAD CARPET SEWING MACHINE OPERATOR
[2022-02-19] MEDS: Atorvastatin Calcium 20 MG Tablet PO (20:13)
[2022-02-19] MEDS: OLANZapine 10 MG Tablet 20 MG PO (20:13)
[2022-02-19] MEDS: Mirtazapine 15 MG Tablet 7.5 MG PO (20:13)
[2022-02-20 05:32] VITALS: BP 100/61; PULSE 110
[2022-02-20] MEDS: Acetaminophen 500 MG Tablet 1000 MG PO (05:32)
[2022-02-20] MEDS: Amiodarone 200 MG Tablet PO (05:32)
[2022-02-20] MEDS: Senna/Docusate Sodium 1 Tablet 2 TABLET PO (05:32)
[2022-02-20] MEDS: Metoprolol Tartrate 100 MG Tablet PO ×2 (05:32→17:52)
[2022-02-20] MEDS: Pantoprazole Sodium 40 MG Tablet PO (05:35)
[2022-02-20] MEDS: Menthol/Lanolin/Calamine/Znox 113 GM Tube 1 APPLIC TOPICAL ×2 (05:35→18:33)
[2022-02-20] MEDS: Nitrofurantoin Macrocrystals 100 MG Capsule PO ×2 (08:16→17:52)
[2022-02-20] MEDS: Ergocalciferol 1.25 MG (50, 000 UNIT) Capsule PO (08:16)
[2022-02-20] MEDS: ALPRAZolam 0.25 MG Tablet PO ×2 (09:13→20:05)
--- NOTE | 2022-02-20 14:28 | NURSING ---
Pt in bed in low position with bed alarm in place and blue pads surrounding bed. RED fall sign was in place on door . call light in reach and functional. Pt had been toileted within past 2 hrs. Alarm sounded and pt was found with knees on floor and upper body laying across bed. Pt had loose stool in attends. Pt has been impulsive all day and previous days. Alert only to self. Dr Mendoza was notified by Kaushik Carbone RN
[2022-02-20 16:00] VITALS: BP 112/64; PULSE 104; RESP 20; TEMP 35.9; O2SAT 92
[2022-02-20 17:52] VITALS: PULSE 88
[2022-02-20 20:00] VITALS: O2SAT 94
[2022-02-20] MEDS: oxyCODONE 5 MG Tablet PO (20:04)
[2022-02-20] MEDS: Mirtazapine 15 MG Tablet 7.5 MG PO (20:06)
[2022-02-20] MEDS: Atorvastatin Calcium 20 MG Tablet PO (20:06)
[2022-02-20] MEDS: OLANZapine 10 MG Tablet 20 MG PO (20:07)
[2022-02-21] MEDS: Acetaminophen 500 MG Tablet 1000 MG PO ×4 (00:44→17:59)
[2022-02-21] MEDS: oxyCODONE 5 MG Tablet PO ×3 (00:44→19:52)
--- NOTE | 2022-02-21 01:22 | NURSING ---
At 12:30 am, [employer] called for assistance with resident. Upon entering the room, pt was observed laying on floor mat parallel to her bed, on her left side. Pt assessed for injuries, none noted at this time. Assisted into recliner via 3-assist and VS assessed. BP 116/74, pulse 112, O2 94%, RR 20, (T) 97.8 F. Pt c/o of pain and PRN oxycodone administered as ordered. Dr. Mendoza notified of unwitnessed fall, pain, and restlessness. Xanax increased to 0.5 mg TID PRN and he ordered 0.5 mg Xanax be given now. Neurological assessments initiated. RN and nursing expedition supervisor aware.
[2022-02-21] MEDS: ALPRAZolam 0.5 MG Tablet PO ×2 (01:40→06:32)
[2022-02-21 05:32] LABS: Absolute Lymphocyte Count 1.42 X10^3/uL (0.83-4.51); Absolute Neutrophil Count 3.6 X10^3/uL (2.0-7.7); Basophil# 0.07 X10^3/uL; Basophil% 1.2 % (0-1); Eosinophil# 0.16 X10^3/uL; Eosinophils% 2.7 % (0-5); Hemoglobin 8.7 g/dL (12.0-15.0); Lymphocyte # 1.42 X10^3/ul (0.83-4.51); Lymphocyte % 23.9 % (19-41); Mean Corp Hgb Conc 32.2 g/dL (32-36); Mean Corpuscular Hgb 35.8 pg (27.0-32.0); Mean Corpuscular Volume 111.1 fL (81-99); Mean Platelet Vol. 10.2 fl (6.2-12.0); Monocyte% 11.8 % (0-10); NRBC Flagged by Analyzer 0 % (0-5); Neutrophil # 3.57 X10^3/uL (2.7-7.7); Neutrophil % 60.1 % (47-70); POSITIVE MORPHOLOGY YES; Platelet Count 274 K/mm3 (150-450); RBC Distribution Width CV 19.7 % (11.6-14.6); RBC Distribution Width SD 78.8 fl (35.1-43.9); Red Blood Count 2.43 M/mm3 (4.2-5.4); White Blood Count 5.9 K/mm3 (4.4-11.0)
[2022-02-21 05:50] LABS: Differential Indicated SCAN CRITERIA MET
[2022-02-21 06:00] LABS: Anion Gap 5 (5-15); BUN 20 mg/dL (7-18); BUN/Creat Ratio 23.1 RATIO (10-20); Calcium,Total 7.9 mg/dL (8.5-10.1); Chloride 111 mmol/L (98-107); Creatinine, Serum 0.86 mg/dL (0.55-1.02); EST Glomerular Filtration Rate 67 mL/min (>60); Est Glom Filt Rate - Afr Amer 82 mL/min (>60); Estimated Creatinine Clearance 54.39 ml/min; Glucose 87 mg/dL (74-106); Sodium Level 143 mmol/L (136-145)
[2022-02-21 06:26] LABS: Anisocytosis 2+; Macrocytosis 2+
[2022-02-21] MEDS: Alendronate Sodium 70 MG Tablet PO (06:40)
[2022-02-21] MEDS: Senna/Docusate Sodium 1 Tablet 2 TABLET PO (06:40)
[2022-02-21 06:41] VITALS: BP 135/84; PULSE 118
[2022-02-21] MEDS: Metoprolol Tartrate 100 MG Tablet PO ×2 (06:41→17:59)
[2022-02-21] MEDS: Pantoprazole Sodium 40 MG Tablet PO (06:42)
[2022-02-21] MEDS: Amiodarone 200 MG Tablet PO (06:42)
[2022-02-21] MEDS: Menthol/Lanolin/Calamine/Znox 113 GM Tube 1 APPLIC TOPICAL ×2 (06:49→18:09)
[2022-02-21] MEDS: Nitrofurantoin Macrocrystals 100 MG Capsule PO ×2 (08:44→17:58)
[2022-02-21] MEDS: Tuberculin,Purif.prot.deriv. 50 TU/ML Vial 0.1 ML ID (08:46)
[2022-02-21 10:00] VITALS: O2SAT 95
[2022-02-21 16:00] VITALS: BP 93/57; PULSE 81; RESP 20; TEMP 36.9; O2SAT 93
[2022-02-21 17:59] VITALS: PULSE 76
[2022-02-21] MEDS: OLANZapine 10 MG Tablet 20 MG PO (19:52)
[2022-02-21] MEDS: Mirtazapine 15 MG Tablet 7.5 MG PO (19:52)
[2022-02-21] MEDS: Atorvastatin Calcium 20 MG Tablet PO (19:53)
[2022-02-22] MEDS: Acetaminophen 500 MG Tablet 1000 MG PO ×4 (00:54→18:27)
[2022-02-22] MEDS: ALPRAZolam 0.5 MG Tablet PO (00:54)
[2022-02-22] MEDS: oxyCODONE 5 MG Tablet PO ×3 (03:09→20:22)
--- NOTE | 2022-02-22 04:47 | NURSING ---
Left vm for licensed clinical social worker, Merisas, requesting coordination of care with palliative care to visit pt as soon as able to discuss goals of care due to continued functional decline and symptom concerns.
[2022-02-22 05:55] LABS: International Normalized Ratio 2.3; Prothrombin Time (Protime)PT. 24.7 SECONDS (11.7-14.9)
[2022-02-22] MEDS: Pantoprazole Sodium 40 MG Tablet PO (07:02)
[2022-02-22] MEDS: Menthol/Lanolin/Calamine/Znox 113 GM Tube 1 APPLIC TOPICAL ×2 (07:02→18:19)
[2022-02-22] MEDS: Amiodarone 200 MG Tablet PO (07:02)
[2022-02-22 07:03] VITALS: BP 123/75; PULSE 97
[2022-02-22] MEDS: Iron Polysaccharide Complex 150 MG CAPSULE PO (07:03)
[2022-02-22] MEDS: Metoprolol Tartrate 100 MG Tablet PO ×2 (07:03→18:24)
[2022-02-22] MEDS: Senna/Docusate Sodium 1 Tablet 2 TABLET PO ×2 (07:03→18:20)
--- NOTE | 2022-02-22 07:49 | RAD_ITS ---
STUDY: X-RAY CHEST REASON FOR EXAM: Female, 76 years old. confusion TECHNIQUE: PA and lateral views of the chest. COMPARISON: February 22 CT abdomen FINDINGS: Prominent bilateral interstitial markings are present. Left costophrenic angle blunting with likely small effusion present with additional small effusion on the right. There is moderate cardiac enlargement. Normal mediastinum and claudia. Normal visualized pulmonary arteries. Normal visualized aortic arch and descending thoracic aorta. There is demineralization of the osseous structures. Normal visualized ribs, clavicles, and shoulders. There is no demonstrated abnormality of the visualized soft tissue structures of the upper abdomen. RAD/Chest PA and Lateral IMPRESSION: Moderate cardiomegaly with likely underlying pulmonary interstitial edema with small moderate left and small right layering effusions, clinically correlate for underlying CHF exacerbation. Electronically Signed: Naldo Curry DO at 14:15 EDT ,
[2022-02-22] MEDS: Nitrofurantoin Macrocrystals 100 MG Capsule PO ×2 (08:14→18:20)
[2022-02-22 08:18] LABS: Absolute Lymphocyte Count 1.06 X10^3/uL (0.83-4.51); Absolute Neutrophil Count 6.1 X10^3/uL (2.0-7.7); Basophil# 0.06 X10^3/uL; Basophil% 0.7 % (0-1); Eosinophil# 0.11 X10^3/uL; Eosinophils% 1.3 % (0-5); Hematocrit 30.5 % (37-47); Hemoglobin 9.9 g/dL (12.0-15.0); Lymphocyte # 1.06 X10^3/ul (0.83-4.51); Mean Corp Hgb Conc 32.5 g/dL (32-36); Mean Corpuscular Hgb 35.4 pg (27.0-32.0); Mean Corpuscular Volume 108.9 fL (81-99); Mean Platelet Vol. 9.8 fl (6.2-12.0); Monocyte# 0.87 X10^3/uL; Monocyte% 10.6 % (0-10); NRBC Flagged by Analyzer 0 % (0-5); Neutrophil # 6.05 X10^3/uL (2.7-7.7); POSITIVE MORPHOLOGY YES; Platelet Count 294 K/mm3 (150-450); RBC Distribution Width CV 19.6 % (11.6-14.6); RBC Distribution Width SD 77.4 fl (35.1-43.9); White Blood Count 8.2 K/mm3 (4.4-11.0)
[2022-02-22 08:19] LABS: Differential Indicated SCAN CRITERIA MET
--- NOTE | 2022-02-22 08:27 | RAD_ITS ---
STUDY: X-RAY - CERVICAL SPINE REASON FOR EXAM: Female, 76 years old. fall TECHNIQUE: 3 view(s) of the cervical spine were obtained. COMPARISON: None FINDINGS: Normal anterior atlantoaxial articulation. Normal odontoid process. There is straightening of the normal cervical lordosis. There is diffuse demineralization of the cervical spine. There is multi-level degenerative disc disease with multilevel disc space narrowing. Multilevel uncovertebral joint and facet arthropathy is present. The soft tissue structures are unremarkable. RAD/Cerv Spine 2 or 3 Views IMPRESSION: Multilevel disc degenerative change and facet arthropathy with no evidence of underlying acute osseous injury. If continued neck pain recommend MRI imaging to exclude occult findings. Electronically Signed: Naldo Curry DO at 14:10 EDT ,
--- NOTE | 2022-02-22 08:28 | NURSING ---
pt complained of neck pain and cannot keep her head up. when trying to feed pt to get her to straighten head,pt grimace in pain and stated ouch! called and ordered a xray of neck. rn aware
[2022-02-22 08:40] LABS: ALB/GLOB Ratio 0.8 RATIO (0.9-2.4); AST(SGOT) 45 U/L (15-37); Alanine Aminotransfer ALT/SGPT 29 U/L (13-56); Albumin, Serum 2.2 g/dL (3.2-5.0); Alkaline Phosphatase 221 U/L (45-117); Anion Gap 4 (5-15); BUN 21 mg/dL (7-18); BUN/Creat Ratio 22.8 RATIO (10-20); Chloride 108 mmol/L (98-107); Creatinine, Serum 0.92 mg/dL (0.55-1.02); EST Glomerular Filtration Rate 63 mL/min (>60); Est Glom Filt Rate - Afr Amer 76 mL/min (>60); Estimated Creatinine Clearance 50.84 ml/min; Globulin 2.9 g/dL (2.2-4.2); Glucose 116 mg/dL (74-106); Potassium 4.3 mmol/L (3.5-5.1); Protein, Total 5.1 g/dL (6.4-8.2); Sodium Level 140 mmol/L (136-145)
[2022-02-22 08:47] LABS: Anisocytosis 1+
[2022-02-22 09:41] LABS: Mucous, Urine 0 SEEN /hpf (<or=2+)
[2022-02-22 09:42] LABS: Color, Urine Amber (Yellow); Glucose, Dipstick Normal (Normal); Ketone-Dipstick 5 mg/dl (Negative); Leukocyte Esterase-Dipstick 25 /ul (Negative); Nitrite-Dipstick Negative (Negative); Occult Blood-Urine Negative /ul (Negative); Protein-Dipstick 15 mg/dl (Negative); Urine Bilirubin Dipstick Negative (Negative); Urine Clarity Clear (Clear); Urine Urobilinogen 1 mg/dl (Normal)
[2022-02-22 09:56] LABS: Hyaline Cast 0-5 SEEN /lpf (0-5); Red Blood Cells-Urine 0-5 SEEN /hpf (0-5); Squamous Epithelial Cells - UA 0-5 SEEN /hpf (5-10); Transitional Epithelial - Ur 0-5 SEEN /hpf (0-5); White Blood Cells 0-5 SEEN /hpf (0-5)
[2022-02-22 09:58] LABS: Bacteria 1+ /hpf (None Seen)
--- NOTE | 2022-02-22 10:47 | CASEMGMT ---
Addendum entered by Merissa Mccray 02/22/22 13:41: Received call from Palliative TRENCHER DRIVER, Jane. TRENCHER DRIVER stated family was not present for visit but spoke with DIL via phone. DIL not ready for hospice but agreeable to Palliative services. DIL and TRENCHER DRIVER agreed pt should transition to [facility] to be with . SW contacted [facility] to f/u on referral. Left message. Original Note: Social Work Received voicemail from nursing requesting pt be seen by Palliative or hospice to address decline. SW emailed Palliative updating on decline and request for discussion with family to include both programs. SW left written communication to to speak with family if hospice is appropriate. Palliative TRENCHER DRIVER scheduled to meet with pt and family this date at noon. SW to continue to follow for Drs recommendations. Merissa Mccray, YVONNE MUROW
--- NOTE | 2022-02-22 11:27 | NURSING ---
VANE FROM OFFICE CALLED AND STATED THAT SURESH SEEN THE XRAYS OF THE HIP AND EVERY THING LOOKS GOOD. SHE ALSO ASKED ABOUT THE INCISION AND THIS NURSE STATED EVERY THING LOOKS GOOD AT THIS TIME AND NO FEVER.
--- NOTE | 2022-02-22 13:02 | RAD_ITS ---
STUDY: X-RAY - ABDOMEN/PELVIS REASON FOR EXAM: Female, 76 years old. confusion TECHNIQUE: Two AP supine views of the abdomen and pelvis. COMPARISON: None. FINDINGS: Likely small bilateral costophrenic angle effusions are present. There is an unremarkable bowel gas pattern. There is no demonstrated free abdominal air. The visualized liver, spleen and kidneys are grossly normal in size and morphology. Normal soft tissue structures. There are diffuse degenerative changes of the visualized lumbar spine. RAD/Abdomen Single View IMPRESSION: No evidence of acute abdominal process. Likely small bilateral pleural effusions. Electronically Signed: Naldo Curry DO at 14:16 EDT ,
[2022-02-22 14:29] VITALS: BP 101/52; PULSE 96; RESP 16; TEMP 36.6; O2SAT 94
--- NOTE | 2022-02-22 16:46 | PCM.HP.PAL ---
[facility] - General General Date of Admission: 02/13/22 Chief Complaint: Here for rehab. HPI Narrative REINA PARRISH is a 76 year old female referred to [facility] Palliative by Dr. Campbell for symptom management of Dementia with behavioral disturbance, afib with anticoagulation and recurrent falling. Past medical history includes OP, Vitamin D Deficiency, Hyperlipidemia, GERD and liver mass. Her son Abraham had also placed her Selena in Palliative services. Reina was living alone after her , Selena was admitted to [facility] for 24 hour nursing care. Family had been checking on her frequently. Patient had a fall 2 months ago and fractured her humerus. She is established with [facility]. She was a direct admission from [facility] after another fall on 02/05/22. She was found to be in afib with RVR confirmed by EKG. She received a Cardizem bolus and was started on a drip. She reported severe pain. Blood work in [facility] showed WBC count of 11.1, Hb 12.7, platelet count 227, INR was 3.4, UA was unremarkable. Glucose 127, sodium was 145, potassium 4.5, chloride 107, bicarbonate 25, BUN 19, creatinine 1.20, previous creatinine was 1.13 calcium was 9.1. LFTs unremarkable lactic acid was 4.1, troponins were 62. Xray showed fracture of the proximal left femur either subcapital or transcervical neck fracture. Dr. Potter performed a left hip hemiarthroplasty on 02/05/22. On 02/06/22 was started on PT/OT and ST for dysphagia. Zyprexia for behavioral disturbances. On 02/07/22 Coumadin was resumed and patient was noted to be more confused at baseline. Noted to be dehydrated and hyponatremic and IV fluids were increased. On 02/11/22 CT of the head was done for postoperative delirium. Noted to have Chronic involutional changes of the brain. No intracranial hemorrhage. There are no findings of an acute ischemic infarction. Was admitted to TCU on 02/13/22 for rehab and strengthening before discharge to [facility]. Seen today in her TCU room in low bed with mat at bedside due to risk for repetitive falls. Patient is alert to self only. She is able to answer yes or no and one or 2 word answers.Some are understandable some are nonsensical. Can put together sentences but does not make sense. Does not recognize her family in pictures on window anne marie. Reina is leaning toward her left side and leaning on her rail and appears uncomfortable. Reports that she has pain but is unable to describe and quantify. Patient is fidgety and trying get out of the bed. Nurse notified to get pain medication. Staff report that she is more confused today than her baseline. Easily redirected during visit. Seems to find comfort with presence in the room. Drifting off and on. Tends to awake and fiddle with blankets and sheets. Family to meet with this Practitioner to discuss hospice services. This did not happen and daughter in law was called when son did not answer. Reports they are both at work and unable to attend a visit during the day. Heart rate is regular but tachycardic, lungs are clear. Abdomen is soft with hyperactive bowel sounds. Noted scabs to the left foot and trace edema bilaterally. Patient is a total feed of pureed with think liquids. She was walking short distances to the bathroom with assistance but has not been happening the last few days. Spoke to the nurse. Staff report that intake has been poor with a few bites this morning and close to 50% for lunch. Reports that patient had 3 falls over the weekend and ordered an Xray of her neck due to inability to lift her head earlier this morning. Did not notice this issue during my visit. She was started on Xanax 0.5 TID PRN and had a dose yesterday and early this morning and may have contributed to the weakness. [facility] Medical History Chronic atrial fibrillation Dementia Disp fx of neck of right fifth metacarpal bone with routine healing Hyperlipidemia Macrocytic anemia Osteoporosis Subcapital fracture of left hip Vitamin D deficiency Home Medications alendronate 70 mg tablet 70 mg PO QWEEK bones 02/05/22 [History Last Taken Unknown] atorvastatin 20 mg tablet 20 mg PO DAILY cholesterol 02/05/22 [History Last Taken Unknown] fluticasone propionate 50 mcg/actuation nasal spray,suspension 2 spray intranasal DAILY PRN Congestion 02/05/22 [History Last Taken Unknown] warfarin 2 mg tablet 2 mg PO DAILY blood thinner 02/05/22 [History Last Taken Unknown] acetaminophen 325 mg capsule (Tylenol) 650 mg PO Q4H PRN Pain 1-10/fever 30 days #10 caps 02/13/22 [Rx Last Taken Unknown] amiodarone 200 mg tablet 200 mg PO BID heart 02/13/22 [History Last Taken Unknown] amiodarone 200 mg tablet 200 mg PO DAILY heart 02/13/22 [History Last Taken Unknown] ergocalciferol (vitamin D2) 1,250 mcg (50,000 unit) capsule (Vitamin D2) 1,250 mcg PO Q7D bone 02/13/22 [History Last Taken Unknown] metoprolol tartrate 100 mg tablet 100 mg PO BID BP 02/13/22 [History Last Taken Unknown] olanzapine 10 mg tablet 20 mg PO HS Check with primary doctor 02/13/22 [History Last Taken Unknown] pantoprazole 40 mg tablet,delayed release 40 mg PO DAILY reflux 02/13/22 [History Last Taken Unknown] sennosides 8.6 mg-docusate sodium 50 mg tablet (Stool Softener-Stimulant Laxative) 2 tab PO BID stool softeners 02/13/22 [History Last Taken Unknown] warfarin 1 mg tablet (Jantoven) 1 mg PO 1700 blood thinner 02/13/22 [History Last Taken Unknown] Allergy/AdvReac Type Severity Reaction Status Date / Time meloxicam [From Mobic] Allergy PT UNSURE Verified 02/05/22 00:18 OF REACTION amoxicillin [From Augmentin] AdvReac Other Verified 02/05/22 00:18 clavulanic acid AdvReac Other Verified 02/05/22 00:18 [From Augmentin] Surgical History H/O bilateral cataract extraction H/O bilateral salpingo-oophorectomy History of breast biopsy History of dilatation and curettage History of hysterectomy History of right hip replacement History of tonsillectomy Social History household members: none housing: house Smoking Status: Never smoker alcohol intake: never substance use type: does not use ROS Review of Systems ROS Unobtainable: due to mental status Physical Exam Const alert Constitutional Narrative: to self only. Appears uncomfortable, fidgety Eyes EOMs intact bilaterally and conjunctivae normal Neck full ROM and supple Resp normal respiratory effort, normal air movement and no use of accessory muscles Cardio Rate: tachycardic Rhythm: regular rhythm GI normal to inspection, nondistended, normoactive bowel sounds, soft to palpation and non-tender Extremity Extremity Narrative: Lower extremities are warm, pulses present, trace edema bilaterally Skin Skin Narrative: scabbed areas noted to left anterior foot Neuro CN's II-XII intact bilaterally and moves all extremities Psych Psych Narrative: Alert to self, pleasantly confused, anxious Speech: incoherent and minimal Thought Process: incoherent, disorganized and confused Assessment & Plan Assessment/Plan (1) Recurrent falls: (2) Atrial fibrillation: (3) Osteoporosis: (4) Major neurocognitive disorder due to Alzheimer's disease, with behavioral disturbance: (5) Alzheimer disease: (6) Postoperative delirium: (7) Hypernatremia: (8) Liver mass: (9) Compression fracture of L2: (10) Debility: PLAN: Plan ASSESSMENT/PLAN: Reina Parrish is a 76 year old female referred to [facility] Palliative by Dr. Campbell for symptom management of Dementia with behavioral disturbance, afib with anticoagulation and recurrent falling. She is currently in TCU for rehab following fall and s/p left hip arthoplasty. [facility] . Palliative plan is as follows: 1 Left hip pain/ Debility/falling: Patient is unable to quantify pain, but it leaning on her left hip. Staff report increased weakness in her neck and due to falls this weekend had received order for a neck Xray by Dr. Mendoza. Staff feel that she is in quite a bit of pain and do not feel that a reduction in Oxycodone would be helpful at this time. She is also using Tylenol for pain as well 2 confusion /anxiety/Dementia : Patient is more confused from baseline since fall and arthroplasty. Had 3 falls over the weekend and is less able to participate in therapy. Has not been walking as she has been. Was started on Xanax 0.5mg TID PRN. She has had 2 doses and was more lethargic today. Discussed hospice care versus Palliative care with Daughter in law over the phone. At this time, family opts for a wait and see approach. They want to see if medications could be contributing to her decline today and over the weekend. Most likely this will be seen in the next few days. Aware that she can call for Hospice at any time. Palliative office number given at [phone]. Decreased dose Xanax to 0.25mg TID PRN. [id number] is aware of this and in agreement. Also notified Dr. Mendoza and Christianne PINA of conversation with daughter in law today. 3. Afib with RVR, hyperlipidemia, OA, GERD, Vitamin D Deficiency Complicates overall care, management, recovery and prognosis. Defer management to bailing machine operator. TIME BASED VISIT Over 50% of [id number] visit was education about palliative services symptom management with family per phone and coordination of care with TCU staff. TIME IN 1200 TIME OUT 1334
[2022-02-22 18:24] VITALS: BP 108/67; PULSE 119
--- NOTE | 2022-02-22 18:50 | NURSING ---
CALLED AND UPDATED FAMILY ON PT AND TEST RESULTS.
[2022-02-22 18:56] VITALS: BP 108/67; PULSE 119
[2022-02-22 20:00] VITALS: O2SAT 94
[2022-02-22] MEDS: Mirtazapine 15 MG Tablet 7.5 MG PO (20:22)
[2022-02-22] MEDS: OLANZapine 10 MG Tablet 20 MG PO (20:22)
[2022-02-22] MEDS: ALPRAZolam 0.25 MG Tablet PO (20:22)
[2022-02-22] MEDS: Atorvastatin Calcium 20 MG Tablet PO (20:23)
[2022-02-23] MEDS: Acetaminophen 500 MG Tablet 1000 MG PO ×3 (00:29→17:11)
[2022-02-23] MEDS: oxyCODONE 5 MG Tablet PO ×3 (00:29→19:39)
[2022-02-23 03:15] VITALS: BP 112/68; PULSE 95; RESP 18; TEMP 36.2; O2SAT 94
--- NOTE | 2022-02-23 03:47 | NURSING ---
Alarm heard at 0315. Upon entering room, pt observed kneeling on floor mat beside bed. Pt assisted into recliner via 3 assist and gaitbelt. Bed was in lowest position at this time of the fall and pt was not incontinent. Note left for Dr. Mendoza.
[2022-02-23] MEDS: Amiodarone 200 MG Tablet PO (05:48)
[2022-02-23] MEDS: ALPRAZolam 0.25 MG Tablet PO (05:48)
[2022-02-23] MEDS: Pantoprazole Sodium 40 MG Tablet PO (05:48)
[2022-02-23 05:49] VITALS: BP 109/61; PULSE 110
[2022-02-23] MEDS: Iron Polysaccharide Complex 150 MG CAPSULE PO (05:49)
[2022-02-23] MEDS: Metoprolol Tartrate 100 MG Tablet PO ×2 (05:49→17:09)
[2022-02-23] MEDS: Furosemide 40 MG Tablet PO (05:49)
[2022-02-23] MEDS: Senna/Docusate Sodium 1 Tablet 2 TABLET PO ×2 (05:49→17:08)
[2022-02-23] MEDS: Menthol/Lanolin/Calamine/Znox 113 GM Tube 1 APPLIC TOPICAL ×2 (06:04→17:07)
[2022-02-23 08:00] VITALS: O2SAT 95
[2022-02-23] MEDS: Nitrofurantoin Macrocrystals 100 MG Capsule PO ×2 (08:50→17:07)
--- NOTE | 2022-02-23 08:57 | NURSING ---
PT COMPLAINING OF NECK PAIN. KPAD ORDERED AND APPLIED TO NECK. PUSH WATER,PLEASE OFFER PT WATER EVERY TIME YOU ENTER ROOM WHEN PT IS AWAKE. MEPILEX APPLIED TO BOTTOM DUE TO SHEARING. RN AWARE
--- NOTE | 2022-02-23 09:08 | CASEMGMT ---
Addendum entered by Merisas Mccray 02/23/22 14:10: PASRR completed. Cot transport scheduled through [facility] for [facility]. Addendum entered by Merissa Mccray 02/23/22 11:52: Received return phone call from Roman at [facility], accepting pt for LTC under Medicaid pending. Agreed upon DC 02/25. SW contacted HERMAN to notify of acceptance and recommending DC 02/25. DIL agreeable but asking if pt will continue with therapy or start comfort care. SW advised that is family preference. Explained IDT agrees pt is appropriate for hospice care and SW can assist with coordinating those services at [facility]. DIL appreciative and will discuss with pts son then notify SW. HERMAN asked further questions about the unit and care pt will be receiving at [facility] to ensure pt is with her . SW encouraged HERMAN to speak with Roman at [facility] to ensure expectations are met. DIL agreed. Plan: DC 02/25 to [facility], intermediate Original Note: Social Work Left message with [facility] to inquire about referral. Will await return phone call. YVONNE Riley
--- NOTE | 2022-02-23 09:32 | NURSING ---
PT AND FAMILY NOTIFIED ON POSITIVE COVID STAFF MEMBER. ALSO ASKED FAMILY TO BRING IN A NECK PILLOW FOR PT TO SEE IF IT WOULD HELP WITH HER NECK AND LEFT THEM KNOW SHE DID HAVE ANOTHER FALL OUT OF BED LAST NIGHT WITH NO INJURIES THAT WE SEE AT THIS TIME. FAMILY THANKED THIS NURSE.
[2022-02-23 09:35] VITALS: PULSE 66; RESP 18; O2SAT 92
--- NOTE | 2022-02-23 13:22 | NURSING ---
Addendum entered by Junior Young 02/23/22 14:18: CT OF HEAD AND BRAIN WAS DENIED BY INSURANCE. Original Note: New order received for CT of Brain/Head without contrast. Will contact POA with update.
[2022-02-23 13:29] VITALS: BP 114/65; PULSE 88; RESP 17; TEMP 36.3
--- NOTE | 2022-02-23 13:39 | NURSING ---
CALLED AND ASKED PHARMACY FOR A REVIEW OF MEDS DUE TO FREQUENT FALLS.
[2022-02-23 17:09] VITALS: BP 114/65; PULSE 88
[2022-02-23] MEDS: Mirtazapine 15 MG Tablet 7.5 MG PO (19:40)
[2022-02-23] MEDS: Atorvastatin Calcium 20 MG Tablet PO (19:41)
[2022-02-23] MEDS: OLANZapine 10 MG Tablet 20 MG PO (19:41)
[2022-02-24] MEDS: oxyCODONE 5 MG Tablet PO ×2 (00:40→04:44)
[2022-02-24] MEDS: Acetaminophen 500 MG Tablet 1000 MG PO ×4 (00:40→17:03)
[2022-02-24 04:46] VITALS: BP 134/70; PULSE 108
[2022-02-24] MEDS: Metoprolol Tartrate 100 MG Tablet PO ×2 (04:46→17:04)
[2022-02-24] MEDS: Furosemide 40 MG Tablet PO (04:46)
[2022-02-24] MEDS: Pantoprazole Sodium 40 MG Tablet PO (04:46)
[2022-02-24] MEDS: Iron Polysaccharide Complex 150 MG CAPSULE PO (04:46)
[2022-02-24] MEDS: Amiodarone 200 MG Tablet PO (04:46)
[2022-02-24] MEDS: Senna/Docusate Sodium 1 Tablet 2 TABLET PO ×2 (04:47→17:03)
[2022-02-24] MEDS: Menthol/Lanolin/Calamine/Znox 113 GM Tube 1 APPLIC TOPICAL ×2 (04:55→17:10)
[2022-02-24 05:51] LABS: Anion Gap 6 (5-15); BUN 20 mg/dL (7-18); BUN/Creat Ratio 21.6 RATIO (10-20); Calcium,Total 8.2 mg/dL (8.5-10.1); Chloride 109 mmol/L (98-107); Creatinine, Serum 0.93 mg/dL (0.55-1.02); EST Glomerular Filtration Rate 62 mL/min (>60); Est Glom Filt Rate - Afr Amer 75 mL/min (>60); Estimated Creatinine Clearance 50.29 ml/min; Glucose 105 mg/dL (74-106); Potassium 3.8 mmol/L (3.5-5.1); Sodium Level 143 mmol/L (136-145)
[2022-02-24 07:25] VITALS: O2SAT 96
[2022-02-24] MEDS: Nitrofurantoin Macrocrystals 100 MG Capsule PO ×2 (07:37→17:03)
--- NOTE | 2022-02-24 11:43 | CASEMGMT ---
Social Work Spoke with DIL to confirm DC 02/25 to [facility]. DIL and son agree to start Palliative services and can transition to hospice when ready. SW agreed. Notified Palliative and [facility] via email. YVONNE RileyW
--- NOTE | 2022-02-24 12:03 | DS.PCM_ITS ---
Providers Date of Admission: 02/13/22 Primary Care Physician: Dr. Michael Phillips MD Reason For Visit: HIP FRACTURE Diagnosis Discharge Diagnosis (1) Recurrent falls: Status: Acute Code(s): R29.6 - Repeated falls (2) Atrial fibrillation: Status: Acute Code(s): I48.91 - Unspecified atrial fibrillation (3) Osteoporosis: Status: Acute Code(s): M81.0 - Age-related osteoporosis without current pathological fracture (4) Major neurocognitive disorder due to Alzheimer's disease, with behavioral disturbance: Status: Acute Code(s): G30.9 - Alzheimer's disease, unspecified; F02.81 - Dementia in other diseases classified elsewhere with behavioral disturbance (5) Alzheimer disease: Status: Acute Code(s): G30.9 - Alzheimer's disease, unspecified; F02.80 - Dementia in other diseases classified elsewhere without behavioral disturbance (6) Postoperative delirium: Status: Acute Code(s): F05 - Delirium due to known physiological condition (7) Hypernatremia: Status: Acute Code(s): E87.0 - Hyperosmolality and hypernatremia (8) Liver mass: Status: Acute Code(s): R16.0 - Hepatomegaly, not elsewhere classified (9) Compression fracture of L2: Status: Acute Code(s): S32.020A - Wedge compression fracture of second lumbar vertebra, initial encounter for closed fracture (10) Debility: Status: Acute Code(s): R53.81 - Other malaise Plan 76 year old female with below past medical history hospitalized for left hip fracture, underwent left hip hemiarthroplasty 02/05/[address] Potter, complicated by atrial fibrillation with rapid ventricular response, hypernatremia, postoperative delirium, admitted to TCU with debility, here for rehabilitation, strengthening, prior to disposition determination. * Debility - PT/OT. * Dysphagia - ST. * Pain - Tylenol 1000mg q6h prn pain (1-10). * Bowel - senna/colace 2 tablets bid, Dulcolax 10mg daily prn. * Adult immunization - Administer pneumonia vaccine, covid19 vaccine, flu vaccine as appropriate. * DVT prophylaxis - Not necessary, on warfarin. * Osteoporosis - Alendronate 70mg qweek. * Atrial fibrillation - Metoprolol 100mg bid, Amiodarone 200mg bid thru 02/18/2022, then 200mg daily, Warfarin 1mg daily, monitor INR. * Hyperlipidemia - Atorvastatin 20mg qhs. * Vitamin D deficiency - D2 1.25mg qweek x 8 doses. * Allergic rhinitis - Flonase 2 sprays daily prn. * Skin irritation - Calmoseptine topical bid. * Postoperative delirium - Zyprexa 20mg qhs, GDR as appropriate. * GERD - Pantoprazole 40mg daily. * Liver mass - Order liver liver ultrasound. Medications at Discharge Home Medications fluticasone propionate 50 mcg/actuation nasal spray,suspension 2 spray i ntranasal DAILY PRN Congestion 02/05/22 warfarin 2 mg tablet 2 mg PO DAILY blood thinner 02/05/22 amiodarone 200 mg tablet 200 mg PO DAILY heart 02/13/22 metoprolol tartrate 100 mg tablet 100 mg PO BID BP 02/13/22 olanzapine 10 mg tablet 20 mg PO HS Check with primary doctor 02/13/22 pantoprazole 40 mg tablet,delayed release 40 mg PO DAILY reflux 02/13/22 sennosides 8.6 mg-docusate sodium 50 mg tablet (Stool Softener-Stimulant Laxative) 2 tab PO BID stool softeners 02/13/22 warfarin 1 mg tablet (Jantoven) 1 mg PO 1700 blood thinner 02/13/22 acetaminophen 500 mg tablet 1,000 mg PO Q6 #0 tabs 02/24/22 alprazolam 0.25 mg tablet 0.25 mg PO TID PRN PRN Anxiety/Restlessness/Sleep 3 days #9 tabs 02/24/22 furosemide 40 mg tablet 40 mg PO DAILY #0 tabs 02/24/22 mirtazapine 15 mg tablet 7.5 mg PO QHS #0 tabs 02/24/22 oxycodone 5 mg tablet 5 mg PO Q4H PRN PRN Pain Score 6-10 3 days #18 tabs 02/24/22 Hospital Course Operations - (Left hip hemiarthroplasty.) Procedures None Summary of Care Provided Minutes Spent on Discharge: 35 Hospital Course: 76 year old female with below past medical history hospitalized for left hip fracture, underwent left hip hemiarthroplasty 02/05/[address] Potter, complicated by atrial fibrillation with rapid ventricular response, hypernatremia, postoperative delirium, admitted to TCU with debility, here for rehabilitation, strengthening, prior to disposition determination. On TCU, resident had multiple falls, no serious injury. Resident declining. Discharge to [facility] 02/25/2022, Palliative Care, consider transition to Hospice. Physical Exam Const alert General Appearance: cooperative HEENT normocephalic Eyes PERRL and EOMs intact bilaterally Neck supple, no JVD and no carotid bruits Resp normal respiratory effort, normal air movement and clear to auscultation bilaterally Cardio regular rate and regular rhythm GI normal to inspection, nondistended, normoactive bowel sounds, non-tender and non-distended Extremity normal capillary refill General Extremity: Negative for edema Skin no rashes or lesions noted General Skin Exam: no breakdown Psych affect normal Appearance: appropriate Weight / BMI Weight Weight: 80.853 kg Body Mass Index (BMI) 23.0 ABG / Lab / Microbiology Data Result Diagrams: 02/22/22 07:50 02/24/22 05:10 Laboratory: Laboratory Results - last 24 hr 02/24/22 05:10: Sodium 143, Potassium 3.8, Chloride 109 H, Carbon Dioxide 28.0, Anion Gap 6, BUN 20 H, Creatinine 0.93, Estim Creat Clear Calc 50.29, Est GFR (MDRD) Af Amer 75, Est GFR (MDRD) Non-Af 62, BUN/Creatinine Ratio 21.6 H, Glucose 105, Calcium 8.2 L Microbiology: Microbiology 02/22/22 09:35 Urine Catheter - Catheter Urine Culture - Final Culture exhibits no growth. 02/20/22 14:22 Nasal Secretion SARS-CoV-2 Antigen (Rapid) - Final 02/14/22 15:45 Urine Catheter - Catheter Urine Culture - Final Enterobacter cloacae complex D/C Instructions Discharge Diet: No restrictions Discharge Activity: Return to Normal Activity, May Shower and Use Walker Weight Bearing Status: Weight bearing as tolerated Call your doctor if you observe: Fever of 101 or Higher, Inability to urinate, Inability to have a bowel movement, Shortness of breath, Dizziness, Fainting spells, Swelling in the ankles, Chest pain and Uncontrolled pain Additional Instructions: Discharge to [facility] 02/25/2022, Palliative Care, consider transition to [facility] pice. Please Follow Up With: Tae Potter MD When: Cancel. Meaningful Use Info Meaningful Use Diagnoses (Choose all that apply): None applicable Discharge Plan Admission Admit Date/Time: 02/13/22 11:10 Primary Reason for Your Visit: Debility. Attending Provider: Jack Mendoza Chi Primary Care Provider: Michael Phillips Instructions Additional Instructions / Restrictions: Discharge to [facility] 02/25/2022, Palliative Care, consider transition to Hospice. Discharge Orders/Prescriptions Prescriptions: New furosemide 40 mg Tablet 40 mg PO DAILY Qty: 0 0RF acetaminophen 500 mg Tablet 1,000 mg PO Q6 Qty: 0 0RF alprazolam 0.25 mg Tablet 0.25 mg PO TID PRN PRN (Reason: Anxiety/Restlessness/Sleep) 3 Days Qty: 9 0RF mirtazapine 15 mg Tablet 7.5 mg PO QHS Qty: 0 0RF oxycodone 5 mg Tablet 5 mg PO Q4H PRN PRN (Reason: Pain Score 6-10) 3 Days Qty: 18 0RF Continued warfarin 2 mg tablet 2 mg PO DAILY Label Comments: TAKE 1 TABLET BY MOUTH EVERY DAY fluticasone propionate 50 mcg/actuation [place],Suspension 2 spray INTRANASAL DAILY PRN (Reason: Congestion) Rx Instructions: administer into each nostril metoprolol tartrate 100 mg tablet 100 mg PO BID amiodarone 200 mg tablet 200 mg PO DAILY Rx Instructions: START ONCE DAILY ON 02/19/22 FOLLOWING TRANSITION OFF 200 MG BID REGIMEN. sennosides-docusate sodium [Stool Softener-Stimulant Laxat] 8.6-50 mg tablet 2 tab PO BID olanzapine 10 mg tablet 20 mg PO HS pantoprazole 40 mg tablet,delayed release (DR/EC) 40 mg PO DAILY warfarin [Jantoven] 1 mg tablet 1 mg PO 1700 Discontinued atorvastatin 20 mg Tablet 20 mg PO DAILY alendronate 70 mg Tablet 70 mg PO QWEEK acetaminophen [Tylenol] 325 mg capsule 650 mg PO Q4H PRN (Reason: Pain 1-10/fever) 30 Days Qty: 10 0RF amiodarone 200 mg tablet 200 mg PO BID Rx Instructions: Continue amiodarone 200 mg BID until fininished 02/18/22, transition after to once daily. ergocalciferol (vitamin D2) [Vitamin D2] 1,250 mcg (50,000 unit) capsule 1,250 mcg PO Q7D Rx Instructions: Continue ergocalciferol weekly for 8 weeks with repeat ergocalciferol level after therapy. Referrals / Follow Up: Michael Phillips MD [Primary Care Provider] - Disposition Disposition (needs filled in before D/C Order can be placed): NonSkilled [facility]
--- NOTE | 2022-02-24 12:09 | TREXTCAR_ITS ---
Diet Diet Order/Speech Therapy: 02/13/22 11:56 Diet: Regular - General Food consistency:: Pureed Liquid Consistency:: Regular/Thin Type of Dietary Supplement:: see tally notes Is pt able to select menu?: No Diet Comments: close supervision, po meds crushed in puree w/oral care following Routine Orders/Code Status Routine Lab Work: INR Code Status: DNRCC-A (No intubation.) Wound(s) RACHEL FEET/TOES: Wound Type: Abrasion RACHEL ARMS: Wound Type: Abrasion RT ELBOW: Wound Type: Skin Tear Dressing Change: ADAPTIC,2X2 LT ELBOW: Wound Type: Skin Tear Dressing Change: ADAPTIC,GAZE LT HIP: Wound Type: Surgical Incision LEFT INNER BUTTUCK: Wound Type: SHERRING Dressing Change: MEPILEX 02/23/22 Therapies Weight Bearing: Weight bearing as tolerated Extremity Affected:: Bilateral Lower Physical Therapy: Eval and Treat Occupational Therapy: Eval and Treat Problem/Diagnosis (1) Recurrent falls: Status: Acute Code(s): R29.6 - Repeated falls (2) Atrial fibrillation: Status: Acute Code(s): I48.91 - Unspecified atrial fibrillation (3) Osteoporosis: Status: Acute Code(s): M81.0 - Age-related osteoporosis without current pathological fracture (4) Major neurocognitive disorder due to Alzheimer's disease, with behavioral disturbance: Status: Acute Code(s): G30.9 - Alzheimer's disease, unspecified; F02.81 - Dementia in other diseases classified elsewhere with behavioral disturbance (5) Alzheimer disease: Status: Acute Code(s): G30.9 - Alzheimer's disease, unspecified; F02.80 - Dementia in other diseases classified elsewhere without behavioral disturbance (6) Postoperative delirium: Status: Acute Code(s): F05 - Delirium due to known physiological condition (7) Hypernatremia: Status: Acute Code(s): E87.0 - Hyperosmolality and hypernatremia (8) Liver mass: Status: Acute Code(s): R16.0 - Hepatomegaly, not elsewhere classified (9) Compression fracture of L2: Status: Acute Code(s): S32.020A - Wedge compression fracture of second lumbar vertebra, initial encounter for closed fracture (10) Debility: Status: Acute Code(s): R53.81 - Other malaise Plan 76 year old female with below past medical history hospitalized for left hip fracture, underwent left hip hemiarthroplasty 02/05/[address] Potter, complicated by atrial fibrillation with rapid ventricular response, hypernatremia, postoperative delirium, admitted to TCU with debility, here for rehabilitation, strengthening, prior to disposition determination. * Debility - PT/OT. * Dysphagia - ST. * Pain - Tylenol 1000mg q6h prn pain (1-10). * Bowel - senna/colace 2 tablets bid, Dulcolax 10mg daily prn. * Adult immunization - Administer pneumonia vaccine, covid19 vaccine, flu vaccine as appropriate. * DVT prophylaxis - Not necessary, on warfarin. * Osteoporosis - Alendronate 70mg qweek. * Atrial fibrillation - Metoprolol 100mg bid, Amiodarone 200mg bid thru 02/18/2022, then 200mg daily, Warfarin 1mg daily, monitor INR. * Hyperlipidemia - Atorvastatin 20mg qhs. * Vitamin D deficiency - D2 1.25mg qweek x 8 doses. * Allergic rhinitis - Flonase 2 sprays daily prn. * Skin irritation - Calmoseptine topical bid. * Postoperative delirium - Zyprexa 20mg qhs, GDR as appropriate. * GERD - Pantoprazole 40mg daily. * Liver mass - Order liver liver ultrasound. Allergies/Procedures Done in Hospital Allergies meloxicam [From Mobic] Allergy (Verified 02/05/22 00:18) PT UNSURE OF REACTION amoxicillin [From Augmentin] Adverse Reaction (Verified 02/05/22 00:18) Other clavulanic acid [From Augmentin] Adverse Reaction (Verified 02/05/22 00:18) Other Procedures: - (Left hip hemiarthroplasty.) Type of Care/Length of Stay Estimated LOS: More Than 30 Days Type of Care Needed: Intermediate Rehab Potential: Poor Prognosis: Poor Additional Orders/Day of Discharge Day of Discharge: 02/25/22 Dietary and Speech Recommendations Dietitian Recommendations/Changes: Will continue liberal regular diet - consistency modifications per DIRECTOR SPEECH LANGUAGE Will continue ensure enlive w/ medpass 3x/day Will continue to provide 8 oz CIB w/ breakfast, ensure pudding w/ lunch and magic cup w/ dinner for increased nutrition if consumed. Will continue appetite stimulant to help encourage increased po intake. Follow Up Care Please Follow Up With: Tae Potter MD When: x 2 wks Please Follow Up With: Ceci Ely PA When: 1-2 wks Please Follow Up With: Tae Potter MD Discharge Plan Admission Admit Date/Time: 02/13/22 11:10 Primary Reason for Your Visit: Debility. Attending Provider: Jack Mendoza Chi Primary Care Provider: Michael Phillips Instructions Additional Instructions / Restrictions: Discharge to [facility] 02/25/2022, Palliative Care, consider transition to Hospice. Discharge Orders/Prescriptions Prescriptions: New furosemide 40 mg Tablet 40 mg PO DAILY Qty: 0 0RF acetaminophen 500 mg Tablet 1,000 mg PO Q6 Qty: 0 0RF alprazolam 0.25 mg Tablet 0.25 mg PO TID PRN PRN (Reason: Anxiety/Restlessness/Sleep) 3 Days Qty: 9 0RF mirtazapine 15 mg Tablet 7.5 mg PO QHS Qty: 0 0RF oxycodone 5 mg Tablet 5 mg PO Q4H PRN PRN (Reason: Pain Score 6-10) 3 Days Qty: 18 0RF Continued warfarin 2 mg tablet 2 mg PO DAILY Label Comments: TAKE 1 TABLET BY MOUTH EVERY DAY fluticasone propionate 50 mcg/actuation [place],Suspension 2 spray INTRANASAL DAILY PRN (Reason: Congestion) Rx Instructions: administer into each nostril metoprolol tartrate 100 mg tablet 100 mg PO BID amiodarone 200 mg tablet 200 mg PO DAILY Rx Instructions: START ONCE DAILY ON 02/19/22 FOLLOWING TRANSITION OFF 200 MG BID REGIMEN. sennosides-docusate sodium [Stool Softener-Stimulant Laxat] 8.6-50 mg tablet 2 tab PO BID olanzapine 10 mg tablet 20 mg PO HS pantoprazole 40 mg tablet,delayed release (DR/EC) 40 mg PO DAILY warfarin [Jantoven] 1 mg tablet 1 mg PO 1700 Discontinued atorvastatin 20 mg Tablet 20 mg PO DAILY alendronate 70 mg Tablet 70 mg PO QWEEK acetaminophen [Tylenol] 325 mg capsule 650 mg PO Q4H PRN (Reason: Pain 1-10/fever) 30 Days Qty: 10 0RF amiodarone 200 mg tablet 200 mg PO BID Rx Instructions: Continue amiodarone 200 mg BID until fininished 02/18/22, transition after to once daily. ergocalciferol (vitamin D2) [Vitamin D2] 1,250 mcg (50,000 unit) capsule 1,250 mcg PO Q7D Rx Instructions: Continue ergocalciferol weekly for 8 weeks with repeat ergocalciferol level after therapy. Referrals / Follow Up: Michael Phillips MD [Primary Care Provider] - Disposition Disposition (needs filled in before D/C Order can be placed): NonSkilled [facility]/Intermed Care
--- NOTE | 2022-02-24 14:35 | PHA.CONS_ITS ---
TCU RX Drug Regimen Review Subjective: Pharmacy was called and asked to do a review of meds to evaluate the patient's medication profile for fall risk. Objective: Allergies meloxicam [From Mobic] Allergy (Verified 02/05/22 00:18) PT UNSURE OF REACTION amoxicillin [From Augmentin] Adverse Reaction (Verified 02/05/22 00:18) Other clavulanic acid [From Augmentin] Adverse Reaction (Verified 02/05/22 00:18) Other Current Medications Generic Name Dose Route Start Last Admin Trade Name Freq PRN Reason Stop Dose Admin Acetaminophen 1,000 mg 02/21/22 00:00 02/24/22 04:45 Acetaminophen 500 Mg Tablet PO 1,000 mg Q6 MARTA Administration Alendronate Sodium 70 mg 02/14/22 06:00 02/21/22 06:40 Alendronate Sodium 70 Mg Tablet PO 70 mg QWEEK MARTA Administration Alprazolam 0.25 mg 02/22/22 13:14 02/23/22 05:48 Alprazolam 0.25 Mg Tablet PO 0.25 mg TID PRN PRN Administration ANXIETY/RESTLESSNESS/SLEEP Amiodarone HCl 200 mg 02/19/22 06:00 02/24/22 04:46 Amiodarone 200 Mg Tablet PO 200 mg DAILY MARTA Administration Atorvastatin Calcium 20 mg 02/13/22 22:00 02/23/22 19:41 Atorvastatin Calcium 20 Mg Tablet PO 20 mg QHS MARTA Administration Calamine/Phenol 1 applic 02/13/22 18:00 02/24/22 04:55 Menthol/Lanolin/Calamine/Znox 113 Gm Tube TOPICAL 1 applic BID MARTA Administration Protocol Ergocalciferol 1.25 mg 02/20/22 08:00 02/20/22 08:16 Ergocalciferol 1.25 Mg (50, 000 Unit) Capsule PO 04/10/22 08:01 1.25 mg Q7D MARTA Administration Fluticasone Propionate 2 spray 02/13/22 12:12 Fluticasone 0.05% 1 [place] Nasal.Sry NASAL DAILY PRN Congestion Furosemide 40 mg 02/23/22 06:00 02/24/22 04:46 Furosemide 40 Mg Tablet PO 02/28/22 06:01 40 mg DAILY MARTA Administration Metoprolol Tartrate 100 mg 02/13/22 18:00 02/24/22 04:46 Metoprolol Tartrate 100 Mg Tablet PO 100 mg BID MARTA Administration Mirtazapine 7.5 mg 02/17/22 22:00 02/23/22 19:40 Mirtazapine 15 Mg Tablet PO 7.5 mg QHS MARTA Administration Nitrofurantoin Macrocrystals 100 mg 02/17/22 17:00 02/24/22 07:37 Nitrofurantoin Macrocrystals 100 Mg Capsule PO 02/24/22 17:01 100 mg BIDCM MARTA Administration Nutritional Formula (Lactose Free) 120 ml 02/15/22 14:00 02/24/22 05:45 Ensure Enlive 120 Ml Liquid PO 120 ml TID MARTA Administration Olanzapine 20 mg 02/13/22 22:00 02/23/22 19:41 Olanzapine 10 Mg Tablet PO 20 mg HS MARTA Administration Oxycodone HCl 5 mg 02/20/22 18:39 02/24/22 04:44 Oxycodone 5 Mg Tablet PO 5 mg Q4H PRN PRN Administration Pain Score 6-10 Pantoprazole Sodium 40 mg 02/14/22 06:00 02/24/22 04:46 Pantoprazole Sodium 40 Mg Tablet PO 40 mg DAILY MARTA Administration Polysaccharide Iron Complex 150 mg 02/22/22 06:00 02/24/22 04:46 Iron Polysaccharide Complex 150 Mg Capsule PO 150 mg DAILY MARTA Administration Senna/Docusate Sodium 2 tablet 02/13/22 18:00 02/24/22 04:47 Senna/Docusate Sodium 1 Tablet PO 2 tablet BID MARTA Administration Warfarin Sodium 1 mg 02/13/22 17:00 02/23/22 17:07 Warfarin 1 Mg Tablet PO 1 mg 1700 MARTA Administration Problem List (Last Reviewed 02/22/22 @ 17:05 by INOCENCIA Pozo) Recurrent falls (Acute) Atrial fibrillation (Acute) Osteoporosis (Acute) Major neurocognitive disorder due to Alzheimer's disease, with behavioral disturbance (Acute) Alzheimer disease (Acute) Postoperative delirium (Acute) Hypernatremia (Acute) Liver mass (Acute) Compression fracture of L2 (Acute) Debility (Acute) Vital Signs Temp Pulse Resp BP Pulse Ox O2 Del Method O2 Flow Rate 97.4 F L 108 H 17 134/70 H 96 Room Air 1 02/23/22 13:29 02/24/22 04:46 02/23/22 13:29 02/24/22 04:46 02/24/22 07:25 02/24/22 07:25 02/23/22 13:29 Oxygen Flow Rate (L/min) 1 Oxygen Delivery Method Room Air Weight: 80.853 kg Body Mass Index (BMI) 23.0 Sodium 143 mmol/L (136-145) 02/24/22 05:10 Potassium 3.8 mmol/L (3.5-5.1) 02/24/22 05:10 Chloride 109 mmol/L (98-107) H 02/24/22 05:10 Carbon Dioxide 28.0 mmol/L (21.0-32.0) 02/24/22 05:10 Anion Gap 6 (5-15) 02/24/22 05:10 BUN 20 mg/dL (7-18) H 02/24/22 05:10 Creatinine 0.93 mg/dL (0.55-1.02) 02/24/22 05:10 Est GFR (MDRD) Af Amer 75 mL/min (>60) 02/24/22 05:10 Est GFR (MDRD) Non-Af 62 mL/min (>60) 02/24/22 05:10 BUN/Creatinine Ratio 21.6 RATIO (10-20) H 02/24/22 05:10 Glucose 105 mg/dL (74-106) 02/24/22 05:10 Assessment: The patient's current medication profile was reviewed and evaluated for potential association for falls. The following med classes were identified as potentially being associated with an increased risk of falls. The benefit and risk profile should be evaluated for this particular patient: cardiovascular meds: amiodarone 200mg po daily, metoprolol tartrate 100mg po bid. These meds could potentially cause bradycardia or hypotension which could contribute to falls. Patient has not been bradycardic (range 66 to 145), however, blood pressures have been in lower part of range (ranging from 86/54 to 135/84). Consider whether it would be clinically appropriate to decrease the metoprolol dose. diuretics/laxatives: furosemide 40mg po daily, senna-s 2 tab po bid. These meds could potentially increase the risk of falls if the patient would need to get to the bathroom more frequently. Diarrhea was not noted in the record. Furosemide is already dosed in the morning. opioids: oxycodone 5mg po q4h prn pain 6-10/10. Potential for causing drowsiness/confusion/dizziness/orthostatic hypotension/impaired balance. This med is on the Beers List for a history of falls in older adults and the potential to cause ataxia, impaired psychomotor function, syncope, and additional falls. Patient is receiving approximately 3-4 doses per day since 02/21/22. Consider whether or not to decrease dose to 2.5mg based on pain level and function. Assessment of psychotropic medications: olanzepine 20mg po qhs: Could potentially increase risk of dizziness/drowsiness/confusion/orthostatic hypotension which could contribute to increased risk of fall. Consider performing orthostatic vitals to evaluate if patient could be orthostatic. Patient is currently on the max recommended daily dose. alprazolam 0.25mg po tid prn anxiety/restlessness/sleep. Potential effects from this med include confusion/sedation/dizziness/impaired cognition/hypotension. This medication is on the Beers List for increased sensitivity of older adults to benzodiazepines and possible increased risk of cognitive impairment, delirium, fall, and fractures. The patient's dose was decreased from 0.5mg on 02/22/22 to the current 0.25mg and the patient has had 2 doses since the dose was decreased. mirtazepine 7.5mg po qhs. Could potentially cause drowsiness, dizziness, confusion, or impaired balance which could contribute to falls. Date of Note:: 02/24/22
[2022-02-24 16:00] VITALS: BP 107/71; PULSE 117; RESP 16; TEMP 36.4; O2SAT 91
[2022-02-24] MEDS: ALPRAZolam 0.25 MG Tablet PO (16:01)
[2022-02-24 17:04] VITALS: PULSE 135
--- NOTE | 2022-02-24 19:30 | NURSING ---
PT awake in chair. Patient had taken her arms out of her gown. This nurse put gown back on patient. Patient awake.
--- NOTE | 2022-02-24 19:38 | NURSING ---
Family notified of patient on unit testing positive for Covid.
[2022-02-24 22:00] VITALS: RESP 20
[2022-02-25 00:06] VITALS: BP 115/53; PULSE 105
--- NOTE | 2022-02-25 00:51 | RAD_ITS ---
EXAM: XR CHEST, 1 VIEW CLINICAL INDICATION: fever/crackles TECHNIQUE: Frontal view of the chest. This report was created using [employer] report generation technology. COMPARISON: 02/22/2022 FINDINGS: LUNGS AND PLEURAL SPACES: Pulmonary edema with moderate left and small right pleural effusions. No pneumothorax. HEART: Moderate enlargement of the cardiac silhouette. MEDIASTINUM: Central airways and mediastinal contour are unremarkable. BONES/JOINTS: Unremarkable. SOFT TISSUES: Unremarkable. RAD/Chest 1 View (Portable) IMPRESSION: Pulmonary edema with moderate left and small right pleural effusions. No significant change. Electronically Signed: Moris Fierro MD at 2:08 EDT ,
[2022-02-25 01:10] VITALS: RESP 22
--- NOTE | 2022-02-25 01:20 | NURSING ---
This nurse spoke with updating him on her status. Pt has a fever of 102.0 axillary, SPO2-95% on RA, HR-107, Resp:20. Patient has crackles in lower lobes bilaterally. Patient is very lethargic. gave verbal order over the phone of Covid swab, chest xray, U&A, CBC, and BMP.
[2022-02-25 01:33] LABS: Absolute Lymphocyte Count 0.31 X10^3/uL (0.83-4.51); Absolute Neutrophil Count 6.4 X10^3/uL (2.0-7.7); Basophil# 0.04 X10^3/uL; Basophil% 0.5 % (0-1); Eosinophil# 0.12 X10^3/uL; Eosinophils% 1.6 % (0-5); Hematocrit 32.1 % (37-47); Hemoglobin 10.2 g/dL (12.0-15.0); Lymphocyte # 0.31 X10^3/ul (0.83-4.51); Lymphocyte % 4.2 % (19-41); Mean Corp Hgb Conc 31.8 g/dL (32-36); Mean Corpuscular Hgb 34.7 pg (27.0-32.0); Mean Corpuscular Volume 109.2 fL (81-99); Mean Platelet Vol. 9.8 fl (6.2-12.0); Monocyte# 0.39 X10^3/uL; Monocyte% 5.3 % (0-10); NRBC Flagged by Analyzer 0 % (0-5); Neutrophil # 6.41 X10^3/uL (2.7-7.7); Neutrophil % 87.9 % (47-70); POSITIVE DIFFERENTIAL YES; POSITIVE MORPHOLOGY YES; Platelet Count 227 K/mm3 (150-450); RBC Distribution Width CV 19.2 % (11.6-14.6); RBC Distribution Width SD 76.2 fl (35.1-43.9); Red Blood Count 2.94 M/mm3 (4.2-5.4); White Blood Count 7.3 K/mm3 (4.4-11.0)
[2022-02-25 01:34] LABS: Differential Indicated SCAN CRITERIA MET
--- NOTE | 2022-02-25 01:35 | NURSING ---
Patient placed on 2L NC for comfort
[2022-02-25 01:49] LABS: Anion Gap 6 (5-15); BUN 21 mg/dL (7-18); BUN/Creat Ratio 23.3 RATIO (10-20); Calcium,Total 8.1 mg/dL (8.5-10.1); Chloride 110 mmol/L (98-107); EST Glomerular Filtration Rate 64 mL/min (>60); Est Glom Filt Rate - Afr Amer 78 mL/min (>60); Estimated Creatinine Clearance 51.97 ml/min; Glucose 97 mg/dL (74-106); Potassium 3.4 mmol/L (3.5-5.1); Sodium Level 143 mmol/L (136-145)
[2022-02-25 01:51] LABS: Anisocytosis 2+; Macrocytosis 2+
[2022-02-25 03:07] LABS: Bacteria 0 SEEN /hpf (None Seen); Mucous, Urine 0 SEEN /hpf (<or=2+); Red Blood Cells-Urine 0 SEEN /hpf (0-5); Squamous Epithelial Cells - UA 0 SEEN /hpf (5-10)
[2022-02-25 03:09] LABS: Color, Urine Yellow (Yellow); Glucose, Dipstick Normal (Normal); Ketone-Dipstick 15 mg/dl (Negative); Leukocyte Esterase-Dipstick 25 /ul (Negative); Nitrite-Dipstick Negative (Negative); Occult Blood-Urine Negative /ul (Negative); Protein-Dipstick Negative (Negative); Specific Gravity, Urine 1.015 (1.002-1.030); Urine Bilirubin Dipstick Negative (Negative); Urine Clarity Clear (Clear); Urine Urobilinogen Normal (Normal)
[2022-02-25 03:30] LABS: White Blood Cells 0-5 SEEN /hpf (0-5)
--- NOTE | 2022-02-25 03:42 | NURSING ---
called and updated on patient. This nurse stated to patients temp of 102.2, very lethargic and unable to take PO medications. Patients respirations now up to 30 and using accessory muscle use. Covid was negative. stated to take patient to the ED.
--- NOTE | 2022-02-25 04:00 | NURSING ---
Patient taken to ED by this nurse and accompanying nurse from orders by .
--- NOTE | 2022-02-25 04:07 | NURSING ---
Son called to update on patients status. Son did not answer, Voicemail left for son to call back as soon as possible.
--- NOTE | 2022-02-25 04:09 | NURSING ---
Son, Abraham Parrish called back to TCU. This nurse updated Son on patient. Stated to son that patient became increasingly lethargic through the night, spiked a fever and her respirations had increased from beginning of night. Per 's order, patient sent down to ED. Son thanked this nurse and this nurse transferred call to ED.
--- NOTE | 2022-02-25 07:10 | NUR.TO.PHY ---
Pt sent to ICU from ED.
--- NOTE | 2022-02-25 08:42 | CASEMGMT ---
Social Work Pt sent to ICU[facility]. Hand Off given to ICU JENNIFER. Merissa Mccray SR. MEDIA MANAGER [employer] IN [employer]
--- NOTE | 2022-02-26 10:27 | MDS.RN ---
Information for the mds was obtained from review of the clinical record, interview of resident, staff, and direct observation of resident's care.
== END 2022-02-25 05:00 | disposition short-term general hospital (02) | DRG 560 ==
PROVIDERS: Admitting Provider Family Medicine Geriatric Medicine; PCP Family Medicine; Visit Provider Family Medicine Geriatric Medicine
DX: S72.012D Unspecified intracapsular fracture of left femur, subsequent encounter for closed fracture with routine healing (principal); F02.81 Dementia in other diseases classified elsewhere, unspecified severity, with behavioral disturbance; I48.20 Chronic atrial fibrillation, unspecified; N39.0 Urinary tract infection, site not specified; F05 Delirium due to known physiological condition; G30.9 Alzheimer's disease, unspecified; W19.XXXD Unspecified fall, subsequent encounter; E78.5 Hyperlipidemia, unspecified; E55.9 Vitamin D deficiency, unspecified; K21.9 Gastro-esophageal reflux disease without esophagitis; S32.020D Wedge compression fracture of second lumbar vertebra, subsequent encounter for fracture with routine healing; M48.56XD Collapsed vertebra, not elsewhere classified, lumbar region, subsequent encounter for fracture with routine healing; Z79.01 Long term (current) use of anticoagulants; Z79.899 Other long term (current) drug therapy; Z20.822 Contact with and (suspected) exposure to COVID-19; R29.6 Repeated falls
CPT/HCPCS: 36415; 71045; 71046; 72040; 73502; 74018; 76705; 80048; 80053; 81001; 82140; 85025; 85610; 87077; 87086; 87088; 87186; 87811; 92507; 92523; 92526; 92610; 93005; 97110; 97116; 97163; 97165; 97530; 97535; 97802

== ENCOUNTER 2022-02-25 03:55 | Inpatient (IN) | payer MEDICARE, MEDICAID, SELFPAY ==
[2022-02-25] VITALS (33 sets, daily range): BP systolic 78–132; BP diastolic 46–80; PULSE 76–143; RESP 14–40; TEMP 36.6–38.8; O2SAT 90–98; BMI 23.8; BMI 23.1
--- NOTE | 2022-02-25 04:06 | CT_ITS ---
STUDY: CT BRAIN WITHOUT CONTRAST REASON FOR EXAM: Female, 76 years old. Altered mental status. TECHNIQUE: Transaxial CT imaging of the brain was performed without administration of intravenous contrast material. Individualized dose optimization techniques were used for this CT. COMPARISON: 02/11/2022 CT brain. FINDINGS: INTRACRANIAL: No evidence of intracranial hemorrhage, mass, acute infarct, or hydrocephalus. Chronic microangiopathic changes in the white matter. ASPECTS 10/10 VESSELS: Calcific atherosclerosis of the carotid siphons and intracranial vertebral arteries. BONES: No skull fracture or acute osseous abnormality. Calvarial hyperostosis similar to prior. PARANASAL SINUSES: No air-fluid levels within the visualized portions of the paranasal sinuses. EXTRACRANIAL SOFT TISSUES: Visualized extracranial soft tissues with no acute findings. CT/Brain/Head without Contrast IMPRESSION: No acute intracranial findings. Electronically Signed: Severo Armstrong MD at 5:40 EDT Reading Location ID and State: [facility] / [place] Tel , Service support ,
--- NOTE | 2022-02-25 04:06 | EKG12_ITS ---
Test Reason : DYSRHYTHMIA Blood Pressure : / mmHG Vent. Rate : 116 BPM Atrial Rate : 065 BPM P-R Int : 000 ms QRS Dur : 068 ms QT Int : 306 ms P-R-T Axes : 000 015 100 degrees QTc Int : 425 ms Atrial fibrillation Confirmed by JUAN SETHI, RAJAN ([id number]), acquisitions editor BARRY REYES ([id number]) on 03/01/2022 9:26:32 AM Referred By: ASHOK Confirmed By:NOLAN MARTINEZ MD
--- NOTE | 2022-02-25 04:14 | EX.ED.DYSGE1 ---
HPI History of Present Illness Chief Complaint: Fever Informant: other Narrative Narrative: Patient sent down from the TCU secondary to fever and altered mental status. They state that she is on the floor for rehab after a hip fracture. She reportedly has had some falls in the TCU. She is on Coumadin. She has had increasing agitation over the past couple of days. She has not been willing to take her medication. Tonight they noted a fever. CBC, chemistry studies, urinalysis was obtained and all fairly unremarkable. COVID test was obtained and negative. Chest x-ray was obtained and revealed bilateral pleural effusions and pulmonary edema. This was unchanged when compared to prior study. Patient arrives to the emergency room at 4 AM. She is sleeping but does not really respond much with stimulation. She has a temperature of 101.8 on arrival. [facility] Medical History Chronic atrial fibrillation Dementia Disp fx of neck of right fifth metacarpal bone with routine healing Hyperlipidemia Macrocytic anemia Osteoporosis Subcapital fracture of left hip Vitamin D deficiency Home Medications fluticasone propionate 50 mcg/actuation nasal spray,suspension 2 spray intranasal DAILY PRN Congestion 02/05/22 [History Last Taken Unknown] warfarin 2 mg tablet 2 mg PO DAILY blood thinner 02/05/22 [History Last Taken Unknown] amiodarone 200 mg tablet 200 mg PO DAILY heart 02/13/22 [History Last Taken Unknown] metoprolol tartrate 100 mg tablet 100 mg PO BID BP 02/13/22 [History Last Taken Unknown] olanzapine 10 mg tablet 20 mg PO HS Check with primary doctor 02/13/22 [History Last Taken Unknown] pantoprazole 40 mg tablet,delayed release 40 mg PO DAILY reflux 02/13/22 [History Last Taken Unknown] sennosides 8.6 mg-docusate sodium 50 mg tablet (Stool Softener-Stimulant Laxative) 2 tab PO BID stool softeners 02/13/22 [History Last Taken Unknown] warfarin 1 mg tablet (Jantoven) 1 mg PO 1700 blood thinner 02/13/22 [History Last Taken Unknown] acetaminophen 500 mg tablet 1,000 mg PO Q6 #0 tabs 02/24/22 [Rx Last Taken Unknown] alprazolam 0.25 mg tablet 0.25 mg PO TID PRN PRN Anxiety/Restlessness/Sleep 3 days #9 tabs 02/24/22 [Rx Last Taken Unknown] alprazolam 0.25 mg tablet (Xanax) 0.25 mg PO TID PRN anxiety 3 days #9 tabs 02/24/22 [Rx Last Taken Unknown] furosemide 40 mg tablet 40 mg PO DAILY #0 tabs 02/24/22 [Rx Last Taken Unknown] mirtazapine 15 mg tablet 7.5 mg PO QHS #0 tabs 02/24/22 [Rx Last Taken Unknown] oxycodone 5 mg tablet 5 mg PO Q4H PRN PRN Pain Score 6-10 3 days #18 tabs 02/24/22 [Rx Last Taken Unknown] oxycodone 5 mg tablet 5 mg PO Q4H PRN pain 3 days #18 tabs 02/24/22 [Rx Last Taken Unknown] Allergy/AdvReac Type Severity Reaction Status Date / Time meloxicam [From Mobic] Allergy PT UNSURE Verified 02/05/22 00:18 OF REACTION amoxicillin [From Augmentin] AdvReac Other Verified 02/05/22 00:18 clavulanic acid AdvReac Other Verified 02/05/22 00:18 [From Augmentin] Surgical History H/O bilateral cataract extraction H/O bilateral salpingo-oophorectomy History of breast biopsy History of dilatation and curettage History of hysterectomy History of right hip replacement History of tonsillectomy Social History household members: none housing: house Smoking Status: Never smoker alcohol intake: never substance use type: does not use ROS ROS ED Review of Systems ROS Unobtainable: due to mental status EXAM Physical Exam Const Vital Signs: 02/25/22 03:56 02/25/22 04:45 02/25/22 04:45 Temperature 101.8 F H Temperature Source Temporal Pulse Rate 106 H Respiratory Rate 40 H 26 H Respiratory Effort Respiratory Pattern Blood Pressure 114/67 111/52 L Blood Pressure Mean 82 71 Pulse Ox 90 Oxygen Delivery Method Nasal Cannula Nasal Cannula Nasal Cannula Oxygen Flow Rate (L/min) 2 4 2 02/25/22 05:06 02/25/22 05:06 Temperature Temperature Source Pulse Rate 87 Respiratory Rate 25 H Respiratory Effort Non-Labored Respiratory Pattern Tachypnea Blood Pressure 103/56 L Blood Pressure Mean 71 Pulse Ox 95 Oxygen Delivery Method Nasal Cannula Oxygen Flow Rate (L/min) 2 Positive cachectic General Appearance ED: cachectic Nutritional Appearance: cachectic HEENT Reports moist mucous membranes Chest Wall inspection of chest normal and palpation of chest normal Resp Resp Narrative: Tachypnea. Lung sounds diminished at the bilateral bases. No wheezes or rhonchi noted. Cardio Rhythm: abnormal rhythm irregularly irregular GI non-tender Palpation: soft Extremity normal to inspection Neuro Neuro Narrative: Patient is sleeping with eyes closed. Does not significantly respond to stimulus. Skin no rashes or lesions noted Skin Narrative: Recent left hip incision is clean with no sign of infection. MDM MDM MDM Narrative Medical decision making narrative: CBC, BMP, urinalysis, chest x-ray, rapid COVID reviewed from a few hours ago. Blood cultures, lactic acid, LFTs, ammonia level added. Patient sent for CT scan of the head as well as CT of the chest. COVID PCR will be obtained. Patient was given rectal Tylenol for fever control. Lab Data Attestation: I reviewed the patient's lab results. Labs: Laboratory Results - last 24 hr 02/25/22 02/25/22 02/25/22 04:25 04:25 04:25 PT 24.6 H INR 2.3 APTT 37.2 H Lactic Acid Magnesium Total Bilirubin 0.70 Direct Bilirubin 0.37 H AST 46 H ALT 31 Alkaline Phosphatase 192 H Ammonia 14.0 B-Natriuretic Peptide Total Protein 5.7 L Albumin 2.3 L Globulin 3.4 02/25/22 02/25/22 02/25/22 04:25 04:25 04:25 PT INR APTT Lactic Acid 1.2 Magnesium 2.3 Total Bilirubin Direct Bilirubin AST ALT Alkaline Phosphatase Ammonia B-Natriuretic Peptide 612.8 H Total Protein Albumin Globulin Radiography Diagnostic Testing: Clinical Impression(s) from Imaging Studies Brain CT 02/25/22 04:06 IMPRESSION: No acute intracranial findings. Electronically Signed: Severo Armstrong MD at 5:40 EDT Reading Location ID and State: [facility] / [place] Tel , Service support , Chest CT 02/25/22 04:58 IMPRESSION: Moderate pleural effusions and bilateral lower lobe infiltrates. This may indicate atelectasis or pneumonia. Electronically Signed: Moris Fierro MD at 5:29 EDT , EKG Initial EKG: Attestation: I personally reviewed and interpreted this EKG as follows: Interpretation: Atrial Fibrillation (A. fib RVR at 116.) Treatment and Re-Evaluation Narrative: Sugars wereINR is therapeutic at 2.3. Chemistry studies reveal mild elevation in total and direct bilirubin at 0.7 and 0.37 respectively. AST is 46. Alk phos is 192. Ammonia level is normal at 14. Lactic acid is normal at 1.2. CT head reveals chronic changes. CT scan of the chest reveals moderate bilateral pleural effusions and bilateral lower lobe infiltrates. This may indicate atelectasis or pneumonia. Given the patient's febrile illness and tachypnea she will be covered with Rocephin and vancomycin for pneumonia. Blood cultures have been drawn and pending. COVID PCR is pending at this time. Addendum: Just prior to going to the floor I was notified by nursing staff dropping. She had several readings in the 90s and the 80s systolic. IV fluid bolus is started. Patient is also becoming more agitated, pulling at the side rail of the bed trying to get herself up. I spoke with hospitalist and plan will be to admit her to the ICU for closer monitoring. Discharge Plan Dx/Rx/DC Orders Clinical Impression: Fever, SIRS (systemic inflammatory response syndrome), Pneumonia, Altered mental status Disposition Disposition: Acute Care [facility]
[2022-02-25] MEDS: Acetaminophen 650 MG Suppository RC (04:37)
--- NOTE | 2022-02-25 04:58 | CT_ITS ---
EXAM: CT CHEST WITHOUT INTRAVENOUS CONTRAST CLINICAL INDICATION: fever,dyspnea TECHNIQUE: Helically acquired images were obtained of the chest without intravenous contrast. This CT exam was performed using one or more of the following dose reduction techniques: automated exposure control, adjustment of the mA and/or kV according to patient size, and/or use of iterative reconstruction technique. This report was created using [employer] report generation technology. COMPARISON: None. FINDINGS: LUNGS AND PLEURAL SPACES: Moderate pleural effusions and bilateral lower lobe infiltrates. No mass. No pneumothorax. HEART: Moderate cardiomegaly. Coronary artery calcifications. No pericardial effusion. MEDIASTINUM: Small hiatal hernia. No mediastinal or hilar adenopathy. Esophagus is unremarkable. THYROID: Unremarkable. No thyroid lesions. BONES/JOINTS: Degenerative changes of the spine. No suspicious lytic or blastic abnormality. VASCULATURE: Unremarkable. Thoracic aorta is non-dilated. CT/Chest without Contrast IMPRESSION: Moderate pleural effusions and bilateral lower lobe infiltrates. This may indicate atelectasis or pneumonia. Electronically Signed: Moris Fierro MD at 5:29 EDT ,
[2022-02-25 05:01] LABS: International Normalized Ratio 2.3; Prothrombin Time (Protime)PT. 24.6 SECONDS (11.7-14.9)
[2022-02-25 05:02] LABS: Partial Thromboplast Time 37.2 Seconds (24.1-36.2)
--- NOTE | 2022-02-25 05:09 | PCM.HP.STD ---
HPI - General General Date of Admission: 02/25/22 Date of Service: 02/25/22 Chief Complaint: Encephalopathy, falls, fever. HPI Narrative The patient is a 76 y/o F w/ PMHx: Chronic AF, Recurrent Fall Hx, GERD, HTN, HLD, Anxiety and Depression, Alzheimer's disease w/ Dementia with behavioral disturbance history, recent 02/05/22 admission for fall with acute subcapital fx L femoral neck s/p L hip hemiarthroplasty with transition following to TCU for ongoing therapies who presents to the [facility] ED on 02/25/22 with history of increased confusion above baseline with onset of fever with specifically increasing agitation over the last 2 to 3 days with refusal of any medications as well as occasional mechanical fall with onset of fever with TCU work-up including CBC, BMP, urinalysis noted to be not marked appearing as well as COVID testing negative in addition to a chest x-ray with bilateral pleural effusions and questionable edema unchanged from prior prompting ED evaluation. From review of records patient was therapeutic upon presentation 02/05/2022 noted to be 3.0, reversed for operative intervention and resumed Coumadin therapy 02/08/2022 evening with therapeutic INR since. Work-up in the ED included T11.8, heart rate 106, BP 114/67, respiratory rate 40, 90% on 2 L nasal cannula, 02/25/2022 CBC with WC 7.3, hemoglobin 10.2, MCV 109.2, platelet 227 with lymphopenia, BMP with potassium 3.4, chloride 110, BUN/creatinine 21/0.90 otherwise unremarkable, urinalysis with specific gravity 1.015 with no obvious evidence of UTI, chest x-ray with pulmonary edema with moderate left and small right pleural effusions with no significant change from prior film on 02/22/2022, urine culture pending however patient did have recent 02/22/2022 urine culture which demonstrated no growth. Additional ED initiated work-up included coags with PT 24.6, PTT 37.2, INR 2.3, blood culture x2 obtained per ED, lactic acid 1.2, unremarkable hepatic profile aside direct bilirubin 0.37, AST/LT 46/31, alk phos 192, ammonia 14, CT chest with moderate pleural effusions and bilateral lower lobe infiltrates possibly atelectasis or pneumonia. Final read CT head but preliminarily no obvious acute intracranial findings as well as COVID PCR pending upon evaluation of patient. In the ED patient ministered IV fluids and Tylenol per rectum in addition to IV Rocephin and IV vancomycin broad-spectrum antibiotic therapy. [facility] Medical History Chronic atrial fibrillation Dementia Disp fx of neck of right fifth metacarpal bone with routine healing Hyperlipidemia Macrocytic anemia Osteoporosis Subcapital fracture of left hip Vitamin D deficiency Home Medications fluticasone propionate 50 mcg/actuation nasal spray,suspension 2 spray intranasal DAILY PRN Congestion 02/05/22 [History Last Taken Unknown] warfarin 2 mg tablet 2 mg PO DAILY blood thinner 02/05/22 [History Last Taken Unknown] amiodarone 200 mg tablet 200 mg PO DAILY heart 02/13/22 [History Last Taken Unknown] metoprolol tartrate 100 mg tablet 100 mg PO BID BP 02/13/22 [History Last Taken Unknown] olanzapine 10 mg tablet 20 mg PO HS Check with primary doctor 02/13/22 [History Last Taken Unknown] pantoprazole 40 mg tablet,delayed release 40 mg PO DAILY reflux 02/13/22 [History Last Taken Unknown] sennosides 8.6 mg-docusate sodium 50 mg tablet (Stool Softener-Stimulant Laxative) 2 tab PO BID stool softeners 02/13/22 [History Last Taken Unknown] warfarin 1 mg tablet (Jantoven) 1 mg PO 1700 blood thinner 02/13/22 [History Last Taken Unknown] acetaminophen 500 mg tablet 1,000 mg PO Q6 #0 tabs 02/24/22 [Rx Last Taken Unknown] alprazolam 0.25 mg tablet 0.25 mg PO TID PRN PRN Anxiety/Restlessness/Sleep 3 days #9 tabs 02/24/22 [Rx Last Taken Unknown] alprazolam 0.25 mg tablet (Xanax) 0.25 mg PO TID PRN anxiety 3 days #9 tabs 02/24/22 [Rx Last Taken Unknown] furosemide 40 mg tablet 40 mg PO DAILY #0 tabs 02/24/22 [Rx Last Taken Unknown] mirtazapine 15 mg tablet 7.5 mg PO QHS #0 tabs 02/24/22 [Rx Last Taken Unknown] oxycodone 5 mg tablet 5 mg PO Q4H PRN PRN Pain Score 6-10 3 days #18 tabs 02/24/22 [Rx Last Taken Unknown] oxycodone 5 mg tablet 5 mg PO Q4H PRN pain 3 days #18 tabs 02/24/22 [Rx Last Taken Unknown] Allergy/AdvReac Type Severity Reaction Status Date / Time meloxicam [From Mobic] Allergy PT UNSURE Verified 02/05/22 00:18 OF REACTION amoxicillin [From Augmentin] AdvReac Other Verified 02/05/22 00:18 clavulanic acid AdvReac Other Verified 02/05/22 00:18 [From Augmentin] Family History other other (No marked maternal or paternal family history including HD, DM, CA from prior records.) Surgical History H/O bilateral cataract extraction H/O bilateral salpingo-oophorectomy History of breast biopsy History of dilatation and curettage History of hysterectomy History of right hip replacement History of tonsillectomy Social History household members: none housing: house Smoking Status: Never smoker alcohol intake: never substance use type: does not use ROS Review of Systems ROS Unobtainable: due to encephalopathy Vital Signs Vital Signs Vital Signs: 02/25/22 03:56 02/25/22 04:45 02/25/22 04:45 Temperature 101.8 F H Temperature Source Temporal Pulse Rate 106 H Respiratory Rate 40 H 26 H Blood Pressure 114/67 111/52 L Blood Pressure Mean 82 71 Pulse Ox 90 Oxygen Delivery Method Nasal Cannula Nasal Cannula Nasal Cannula Oxygen Flow Rate (L/min) 2 4 2 Weight Weight: 156 lb 15.506 oz Body Mass Index (BMI) 23.8 Physical Exam Narrative Physical Examination: General: Lethargic, not alert, unable to answer orientation questions, decreased responsiveness, laying in the ED bed, initial respiratory rate significantly increased but no obvious respiratory distress, lessened following Tylenol administration. Skin: Normal color, normal turgor, no icterus, no cyanosis except occasional staged ecchymoses, left hip incision well appearing, no drainage, no fluctuance. HEENT: AT/NC, EOM unable to be assessed given encephalopathy, PERRLA, dry MM, no carotid bruits or JVD noted. Lungs: Diminished, greater bases, mild rales, respiratory rate improved following Tylenol administration, no evidence of any distress, no rhonchi or wheezing. Heart: Irregular irregular; no gallop, rub audible. Abdomen: Soft, no obvious grimacing with palpation, no obvious distention, distant bowel sounds, no HSM. Extremities: No cyanosis, clubbing, or edema, see skin. Neurological: Lethargic, not alert, unable to answer orientation questions, decreased responsiveness, laying in the ED bed, initial respiratory rate significantly increased but no obvious respiratory distress, cognitive function not baseline intact; pupils equally reactive to light and accommodation, cranial nerves unable to be assessed well given lethargy, moving extremities this time stimuli but significantly lethargic, strength accordingly severely globally decreased. Psychiatric: Affect appears flat, lethargic, no acute evidence of depressive or anxiety feelings. Results Lab / Micro Data Labs: Laboratory Results - last 24 hr 02/25/22 04:25: PT 24.6 H, INR 2.3, APTT 37.2 H Assessment & Plan Assessment/Plan (1) Acute encephalopathy: PLAN: Plan The patient is a 76 y/o F w/ PMHx: Chronic AF, Recurrent Fall Hx, GERD, HTN, HLD, Anxiety and Depression, Alzheimer's disease w/ Dementia with behavioral disturbance history, recent 02/05/22 admission for fall with acute subcapital fx L femoral neck s/p L hip hemiarthroplasty with transition following to TCU for ongoing therapies who presents to the [facility] ED on 02/25/22 with history of increased confusion above baseline with onset of fever with specifically increasing agitation over the last 2 to 3 days with refusal of any medications as well as occasional mechanical fall with onset of fever with TCU work-up including CBC, BMP, urinalysis noted to be not marked appearing as well as COVID testing negative in addition to a chest x-ray with bilateral pleural effusions and questionable edema unchanged from prior prompting ED evaluation. #1. Acute Encephalopathy secondary to SIRS (Fever, Tachypnea, Hypoxia), Unclear Etiology, Possible BL PNA potentially exacerbated by Sedative Medications: Will admit to PCU, maintain on telemetry, recent labs not marked appearing, UA with no obvious UTI with UCx pending, INR therapeutic, ammonia level normal, lactic acid level normal, hepatic profile not marked appearing, Bld Cx x 2 pending per ED, CT chest with moderate bilateral lateral pleural effusions with bilateral lower lower lobe infiltrates possibly atelectasis or pneumonia, pending COVID PCR, will maintain on oxygen with wean as tolerated to room air, PRN albuterol, maintain on BSA until discern source with IV Rocephin given allergy history and Vancomycin w/ pending MRSA screen, HOB, IS parameters w/ pending sputum cultures, respiratory viral panel, COVID PCR and urine antigens. PT/OT/CM consultation for transition planning. #2. Hypokalemia: Admission K+ 3.4, magnesium level requested, supplementation given, repeat level in AM. #3. Alzheimer's disease with underlying dementia with behavioral disturbance history: Patient with already known behavioral disturbance history, increased agitation as noted over the last several days with then notable lethargy. Holding oral home regimen, maintain on fall and aspiration precautions, therapies as well as case management consulted for discharge transition planning. #4. Recent mechanical fall with left femoral neck fracture: Status post left hip hemiarthroplasty, continue fall precautions, PT/OT/case management consultation for transition planning, continue follow-up with orthopedic surgery as previously arranged, continue incisional care. #5. Bilateral pleural effusions, left greater than right: Patient with most recent 02/22/2022 chest x-ray with moderate cardiomegaly with likely underlying pulmonary interstitial edema with bilateral effusions, left greater than right. 02/05/22 ECHO w/ EF 50-55%, normal LV systolic Fx, mild AI. Given unsafe oral intake presentation, holding oral medications, may consider pulse dosing lasix, maintained on IV BB with hold parameters. BNP pending. #6. Chronic atrial fibrillation: Given encephalopathy, holding coumadin, INR currently therapeutic, trend and once INR appropriate initiate heparin drip given unable to take oral. Holding metoprolol and coumadin. Will add IV BB with hold parameters. 02/05/22 ECHO w/ EF 50-55%, normal LV systolic Fx, mild AI. Recent presentation following hip fracture with atrial fibrillation with RVR with transient usage of Cardizem drip eventually transitioned to oral metoprolol with also usage of digoxin and eventual usage of an amiodarone taper. #7. Chronic anemia, macrocytic: Admission hemoglobin performed in TCU 10.2, baseline prior 9-10, stable, continue to trend, vitamin B12 and folic acid levels pending. #8. Anxiety and depression: Holding all oral regimen given notable encephalopathy, on xanax low dose as well as mirtazapine and olanzapine. From records 02/24/22 evening medications held secondary to notable encephalopathy. #9. Hypertension: Holding oral regimen, IV BB as noted, IV pulse dose lasix as needed, PRN hydralazine. #10. Hyperlipidemia: Not on regimen, defer to outpatient. #11. GERD: Maintain on IV PPI. #12. Vitamin D deficiency: Noted on recent presentation with hip fracture with vitamin D level 18.8, noted to continued plan of ergocalciferol weekly for 8 weeks with plan repeat level following with goal 50. Will hold currently given unsafe oral intake. #13. DVT prophylaxis: SCDs, holding coumadin given encephalopathy, trend INR and once appropriate transition to heparin drip. Of course, given fall history if recurrent despite resolution of encephalopathy, may need to consider d/c chronic anticoagulation as risk > benefit. #14. CODE STATUS: DNR CCA, no intubation, no aggressive interventions. Charges/Coding Visit Charges Inpatient E&M: 02690 Init Hosp L3 Procedures Hospitalists Procedures: 87699 Advncd Care Plan 30 Min
[2022-02-25 05:18] LABS: AST(SGOT) 46 U/L (15-37); Alanine Aminotransfer ALT/SGPT 31 U/L (13-56); Albumin, Serum 2.3 g/dL (3.2-5.0); Alkaline Phosphatase 192 U/L (45-117); Bilirubin, Direct 0.37 mg/dL (0.00-0.30); Globulin 3.4 g/dL (2.2-4.2); Protein, Total 5.7 g/dL (6.4-8.2)
[2022-02-25 05:20] LABS: Lactic Acid 1.2 mmol/L (0.4-1.9)
[2022-02-25 05:46] LABS: Magnesium 2.3 mg/dL (1.6-2.6)
[2022-02-25] MEDS: Ceftriaxone 1 GM/50 ML BAG IV (05:46)
[2022-02-25 05:51] LABS: BNP,B-Type NATRIURETIC PEPTIDE 612.8 pg/mL (0-100)
[2022-02-25] MEDS: 0.9% Normal Saline 1,000 ML 999 ML IV (06:10)
[2022-02-25] MEDS: Vancomycin IV 1,000 MG/200 ML BAG 200 MG IV (06:24)
[2022-02-25 06:29] LABS: Procalcitonin 0.21 ng/mL (0.00-0.09)
--- NOTE | 2022-02-25 06:37 | NURSING ---
icu white encephalopathy, sirs
--- NOTE | 2022-02-25 06:38 | NURSING ---
ICU 4
--- NOTE | 2022-02-25 07:06 | EX.PCM.CONCC ---
Assessment & Plan Assessment/Plan (1) Acute encephalopathy: PLAN: Plan RECOMMENDATIONS: 1. Transition to Unasyn to cover for potential aspiration. 2. Maintain n.p.o. status, pending evaluation by speech therapy. 3. Gentle IV fluid hydration while NPO. 4. Avoid sedating medications, if feasible. IMPRESSIONS: 1. Encephalopathy I suspect that the patient's presenting encephalopathy is likely multifactorial in etiology. In addition to her baseline Alzheimer's dementia, I do suspect a component of polypharmacy as the patient appears to be on a number of sedating/altering medications including Xanax, Zyprexa and oxycodone. Additionally, underlying infection could also be contributing. The patient was previously on a modified diet over concerns for swallowing difficulties. Accordingly, aspiration pneumonia is a possibility. For now, we will plan to continue empiric antimicrobials, while awaiting infectious work-up. Speech therapy will be consulted to evaluate the patient. Until that time, the patient will remain NPO. 2. Alzheimer's dementia Continue supportive care as noted above. Attempt to avoid sedating medications, if feasible. 3. Recent mechanical fall resulting in left femoral neck fracture status post hemiarthroplasty The patient was initially admitted to the TCU for rehabilitation. However, the patient is quite debilitated and her underlying behavioral disturbances will likely significantly limit her rehab potential. 4. Atrial fibrillation/anemia/hypertension/hyperlipidemia Complicates care, management, recovery and prognosis. Continue home medications as indicated. Overall, I feel that it would be imperative to sit down and have a family discussion regarding overall goals of care. I do not see that this patient is likely going to be a very good candidate for inpatient rehabilitation in the future. This note was generated with [employer] dictation software. It may contain incorrect words, spelling, and punctuation that were not noted in checking the note before signing. HPI Consult Data Date of Consult: 02/26/22 HPI Narrative Reason for Consultation: Questionable pneumonia, encephalopathy, hypotension HPI Narrative: The patient is a 76-year-old female, with a history as outlined below, who presented to the emergency department on February 25 from the TCU with worsening confusion and fevers. The patient was just transferred to the TCU on February 13 after being admitted to the hospital with a mechanical fall which led to a left femoral neck fracture. The patient underwent left hemiarthroplasty on February 05. The patient has a medical history significant for Alzheimer's dementia, paroxysmal atrial fibrillation and anemia. History pertinent to her current hospitalization was obtained primarily via chart review, as the patient is too disoriented/confused to provide any additional insight. On presentation to the emergency department, the patient was noted to have a fever 101.8 ?F. She was also noted to be tachycardic and tachypneic. Laboratory evaluation revealed no evidence of a leukocytosis. Chemistry profile was notable for a potassium of 3.4 and normal creatinine. Lactate was within normal limits at 1.2. BNP was elevated at 612 with a procalcitonin of 0.21. Urine analysis was unremarkable. CT head revealed no acute intracranial findings. CT chest demonstrated bilateral pleural effusions with lower lobe infiltrates. The patient received supplemental IV fluid hydration and was started on antimicrobials. [facility] Medical History Chronic atrial fibrillation Dementia Disp fx of neck of right fifth metacarpal bone with routine healing Hyperlipidemia Macrocytic anemia Osteoporosis Subcapital fracture of left hip Vitamin D deficiency Home Medications fluticasone propionate 50 mcg/actuation nasal spray,suspension 2 spray intranasal DAILY PRN Congestion 02/05/22 [History Last Taken Unknown] warfarin 2 mg tablet 2 mg PO DAILY blood thinner 02/05/22 [History Last Taken Unknown] amiodarone 200 mg tablet 200 mg PO DAILY heart 02/13/22 [History Last Taken Unknown] metoprolol tartrate 100 mg tablet 100 mg PO BID BP 02/13/22 [History Last Taken Unknown] olanzapine 10 mg tablet 20 mg PO HS Check with primary doctor 02/13/22 [History Last Taken Unknown] pantoprazole 40 mg tablet,delayed release 40 mg PO DAILY reflux 02/13/22 [History Last Taken Unknown] sennosides 8.6 mg-docusate sodium 50 mg tablet (Stool Softener-Stimulant Laxative) 2 tab PO BID stool softeners 02/13/22 [History Last Taken Unknown] warfarin 1 mg tablet (Jantoven) 1 mg PO 1700 blood thinner 02/13/22 [History Last Taken Unknown] acetaminophen 500 mg tablet 1,000 mg PO Q6 #0 tabs 02/24/22 [Rx Last Taken Unknown] alprazolam 0.25 mg tablet 0.25 mg PO TID PRN PRN Anxiety/Restlessness/Sleep 3 days #9 tabs 02/24/22 [Rx Last Taken Unknown] alprazolam 0.25 mg tablet (Xanax) 0.25 mg PO TID PRN anxiety 3 days #9 tabs 02/24/22 [Rx Last Taken Unknown] furosemide 40 mg tablet 40 mg PO DAILY #0 tabs 02/24/22 [Rx Last Taken Unknown] mirtazapine 15 mg tablet 7.5 mg PO QHS #0 tabs 02/24/22 [Rx Last Taken Unknown] oxycodone 5 mg tablet 5 mg PO Q4H PRN PRN Pain Score 6-10 3 days #18 tabs 02/24/22 [Rx Last Taken Unknown] oxycodone 5 mg tablet 5 mg PO Q4H PRN pain 3 days #18 tabs 02/24/22 [Rx Last Taken Unknown] Allergy/AdvReac Type Severity Reaction Status Date / Time meloxicam [From Mobic] Allergy PT UNSURE Verified 02/05/22 00:18 OF REACTION amoxicillin [From Augmentin] AdvReac Other Verified 02/05/22 00:18 clavulanic acid AdvReac Other Verified 02/05/22 00:18 [From Augmentin] Family History other Surgical History H/O bilateral cataract extraction H/O bilateral salpingo-oophorectomy History of breast biopsy History of dilatation and curettage History of hysterectomy History of right hip replacement History of tonsillectomy Social History household members: none housing: house Smoking Status: Never smoker alcohol intake: never substance use type: does not use ROS Review of Systems ROS Unobtainable: due to mental status Physical Exam Const alert Orientation / Consciousness: confused and disoriented Exam Limitations: altered mental status and behavioral limitations HEENT normocephalic and head/scalp atraumatic Eyes PERRL, EOMs intact bilaterally and conjunctivae normal Neck supple General: trachea midline Chest inspection of chest normal Resp normal respiratory effort Auscultation: diminished lung sounds Cardio S1 normal heart sound and S2 normal heart sound Rhythm: abnormal rhythm GI normal to inspection, nondistended, normoactive bowel sounds Extremity no clubbing, cyanosis or edema Skin no rashes or lesions noted Neuro moves all extremities and no focal motor deficits Psych Activity / Motor Behavior: restless Lab / Micro Data Result Diagrams: 02/26/22 03:50 02/26/22 03:50 Labs: Laboratory Results - last 24 hr 02/25/22 04:25: PT 24.6 H, INR 2.3, APTT 37.2 H 02/25/22 04:25: Total Bilirubin 0.70, Direct Bilirubin 0.37 H, AST 46 H, ALT 31, Alkaline Phosphatase 192 H, Total Protein 5.7 L, Albumin 2.3 L, Globulin 3.4 02/25/22 04:25: Ammonia 14.0 02/25/22 04:25: Lactic Acid 1.2 02/25/22 04:25: B-Natriuretic Peptide 612.8 H 02/25/22 04:25: Magnesium 2.3 02/25/22 05:27: Procalcitonin 0.21 H Radiology Impression Brain CT 02/25/22 04:06 IMPRESSION: No acute intracranial findings. Electronically Signed: Severo Armstrong MD at 5:40 EDT Reading Location ID and State: [facility] / [place] Tel , Service support , Chest CT 02/25/22 04:58 IMPRESSION: Moderate pleural effusions and bilateral lower lobe infiltrates. This may indicate atelectasis or pneumonia. Electronically Signed: Moris Fierro MD at 5:29 EDT Reading Location ID and State: [facility] / [place] Tel , Service support , Charges/Coding Visit Charges Inpatient E&M: 93931 Init Hosp L3
[2022-02-25] MEDS: Potassium Chloride 10mEq/100mL 10 MEQ/100 ML IV.SOLN. 100 MEQ IV BOLUS ×3 (07:52→10:15)
[2022-02-25] MEDS: 0.9% Normal Saline 1,000 ML 75 ML IV ×2 (07:53→20:53)
[2022-02-25] MEDS: Menthol/Lanolin/Calamine/Znox 113 GM Tube 1 APPLIC TOPICAL ×3 (09:15→20:54)
--- NOTE | 2022-02-25 10:36 | CASEMGMT ---
Dr Queen would like to talk with family regarding goals of care for patient. JENNIFER called patient's son, Abraham and let him know this information. Abraham said he is at work and cannot get away right now. Abraham said his is on her way in right now. JENNIFER notified Merissa in ICU of this information. Aide Hay [employer]LECT[employer] ENGINE [employer]CH[employer]IC MANI
--- NOTE | 2022-02-25 11:46 | NURSING ---
Per Apuobvyw-d-ybi, Joann, & son, Abraham they would like to give patient a little more time for antibiotics to work, blood cultures to result, and keep here in the hospital at this time. This RN spoke with JENNIFER Noble, who will notify [facility] patient will not be coming there today. Will notify Dr. Queen also.
--- NOTE | 2022-02-25 12:08 | CASEMGMT ---
SW sent updates to [facility] via Personally. JENNIFER will continue to follow. Aide SINGLETON
--- NOTE | 2022-02-25 12:44 | PCM.PN.HOSP ---
Subjective Subjective Patient was admitted with confusion and fever. In the ED temperature was 101.8 Fahrenheit. Patient was tachycardic and tachypneic and after that she got hypotensive therefore admitted in ICU. CT chest shows bilateral pleural effusion with lower lobe infiltrates. In ICU, patient is still confused disoriented trying to get out of the bed. No meaningful conversation/history possible. She has echolalia, hyperactive delirium. Cannot tell me her name. Patient on pure wick catheter, no urine output. Objective Data Objective Data Vital Signs: Vital Signs Temp Pulse Resp BP Pulse Ox O2 Del Method O2 Flow Rate 98.9 F 76 20 H 96/53 L 96 Nasal Cannula 2 02/25/22 06:06 02/25/22 07:31 02/25/22 06:31 02/25/22 07:31 02/25/22 06:31 02/25/22 06:31 02/25/22 06:31 Oxygen Flow Rate (L/min) 2 Oxygen Delivery Method Nasal Cannula Weight: 152 lb 12.485 oz Body Mass Index (BMI) 23.1 Intake & Output: Intake and Output for Last 24 Hours 02/23/22 02/24/22 02/25/22 23:59 23:59 23:59 Intake Total 1250 / 1250 Balance 1250 / 1250 Lab / Micro Data Labs: Laboratory Results - last 24 hr 02/25/22 04:25: PT 24.6 H, INR 2.3, APTT 37.2 H 02/25/22 04:25: Total Bilirubin 0.70, Direct Bilirubin 0.37 H, AST 46 H, ALT 31, Alkaline Phosphatase 192 H, Total Protein 5.7 L, Albumin 2.3 L, Globulin 3.4 02/25/22 04:25: Ammonia 14.0 02/25/22 04:25: Lactic Acid 1.2 02/25/22 04:25: B-Natriuretic Peptide 612.8 H 02/25/22 04:25: Magnesium 2.3 02/25/22 05:27: Procalcitonin 0.21 H Radiography Diagnostic Testing: Radiology Impression Brain CT 02/25/22 04:06 IMPRESSION: No acute intracranial findings. Electronically Signed: Severo Armstrong MD at 5:40 EDT , Chest CT 02/25/22 04:58 IMPRESSION: Moderate pleural effusions and bilateral lower lobe infiltrates. This may indicate atelectasis or pneumonia. Electronically Signed: Moris Fierro MD at 5:29 EDT , Physical Exam Narrative General: Confused, disoriented, hyperactive delirium, noncooperative HEENT: Atraumatic, PERRLA, EOMI, Normocephalic Oral: Oral mucosa dry. Deep oropharyngeal could not be examined Neck: Supple, No JVD, Negative Carotid Bruits Lungs: Air entry diminished in bilateral lung bases. No crepitation/rhonchi Cardiovascular: Sinus tachycardia, Normal S1, Normal S2, No murmurs Abdomen: Bowel Sounds Present, Soft, Non Tender, Non-Distended : Pure wick catheter no urine output. No renal angle tenderness. No suprapubic tenderness. Extremities: Bilateral below-knee pitting edema, Capillary Refill Less than 3 Seconds Skin: No rashes, No breakdown Musculoskeletal: No Tenderness to Palpation of Joints or Extremities Neurological: Neuro exam unobtainable. Psych/Mental Status: Restless, agitated. Confused Assessment & Plan Assessment/Plan (1) Acute encephalopathy: PLAN: Plan This is a 18-year-old female admitted from TCU with worsening confusion, fever. Patient had mechanical fall complicated to left femoral neck fracture status post left hemiarthroplasty on February 05 and was in TCU for rehab. 1. Acute encephalopathy, multifactorial in etiology, metabolic/infection and most important polypharmacy: Patient has a baseline history of Alzheimer's dementia with underlying behavioral disorder: Patient is being admitted in ICU. She is in hyperactive delirium, agitated and restless. To treat underlying disorder. Unasyn is ordered with concern of aspiration/potential aspiration pneumonia. Patient not able to follow commands and swallow, speech therapy ordered. COVID-19 PCR negative. Procalcitonin 0.21. 2. Recent fall with left lower leg fracture status post hemiarthroplasty on February 05: PT and OT ordered. 3. Bilateral pleural effusion left greater than right: Echo on 02/05/2022 reported EF 50 to 55% with mild AI, normal LV systolic function. Chest x-ray and CTA individually reviewed shows moderate pleural effusion right more than left with underlying interstitial infiltrates. 4. Chronic A. fib, INR therapeutic, 2.3. On IV heparin drip interim till warfarin is on hold. IV metoprolol for rate control. 5. Other multiple comorbidities include chronic macrocytic anemia, hypertension, dyslipidemia, GERD: Patient baseline hemoglobin runs between 9 to 10 g. Most recent hemoglobin 10.2 g%. Platelet count 227,000. CODE STATUS: DNR CCA, no intubation, no aggressive interventions. Total time of the visit including total time spent in counseling or coordination of care, (more than 50% of the total time, spent in obtaining medical information from nurses and other ancillary care providers,explaining to the patient about labs, imaging, diagnosis and management of active complex medical conditions), discussion with ada accommodation consultant, medical record review, review of labs and imaging is 40 minutes. Microbiology Past 72 Hours 02/25/22 01:20 Urine, Clean Catch Legionella Antigen - Final 02/25/22 01:20 Urine, Clean Catch Streptococcus pneumoniae Antigen (M - Final Laboratory Results 02/25/22 04:25: PT 24.6 H, INR 2.3, APTT 37.2 H 02/25/22 04:25: Total Bilirubin 0.70, Direct Bilirubin 0.37 H, AST 46 H, ALT 31, Alkaline Phosphatase 192 H, Total Protein 5.7 L, Albumin 2.3 L, Globulin 3.4 02/25/22 04:25: Ammonia 14.0 02/25/22 04:25: Lactic Acid 1.2 02/25/22 04:25: B-Natriuretic Peptide 612.8 H 02/25/22 04:25: Magnesium 2.3 02/25/22 05:18: COVID-19 (AUDREY) Not Detected 02/25/22 05:27: Procalcitonin 0.21 H Charges/Coding Procedures Hospitalists Procedures: [id number] Prolonged InPt Service; first hour
[2022-02-26] VITALS (17 sets, daily range): BP systolic 99–160; BP diastolic 62–86; PULSE 111–144; RESP 18–37; TEMP 36.6–36.8; O2SAT 85–96
[2022-02-26 04:35] LABS: Absolute Lymphocyte Count 0.99 X10^3/uL (0.83-4.51); Absolute Neutrophil Count 4.6 X10^3/uL (2.0-7.7); Basophil# 0.02 X10^3/uL; Basophil% 0.3 % (0-1); Eosinophil# 0.16 X10^3/uL; Eosinophils% 2.5 % (0-5); Hematocrit 29.9 % (37-47); Hemoglobin 9.7 g/dL (12.0-15.0); Lymphocyte # 0.99 X10^3/ul (0.83-4.51); Lymphocyte % 15.3 % (19-41); Mean Corp Hgb Conc 32.4 g/dL (32-36); Mean Corpuscular Hgb 35.8 pg (27.0-32.0); Mean Corpuscular Volume 110.3 fL (81-99); Monocyte# 0.68 X10^3/uL; Monocyte% 10.5 % (0-10); NRBC Flagged by Analyzer 0 % (0-5); Neutrophil # 4.62 X10^3/uL (2.7-7.7); Neutrophil % 71.1 % (47-70); POSITIVE MORPHOLOGY YES; Platelet Count 199 K/mm3 (150-450); RBC Distribution Width CV 19.1 % (11.6-14.6); RBC Distribution Width SD 76.6 fl (35.1-43.9); Red Blood Count 2.71 M/mm3 (4.2-5.4); White Blood Count 6.5 K/mm3 (4.4-11.0)
[2022-02-26 04:44] LABS: International Normalized Ratio 2.2; Prothrombin Time (Protime)PT. 23.7 SECONDS (11.7-14.9)
[2022-02-26 04:52] LABS: Differential Indicated SCAN CRITERIA MET
[2022-02-26 04:53] LABS: Differential Comment SCANNED; Polychromasia 1+
[2022-02-26 04:54] LABS: Anisocytosis 2+
[2022-02-26 04:57] LABS: Macrocytosis 1+; Microcytosis 1+; Ovalocyte RARE
[2022-02-26 05:08] LABS: Vitamin B12 469 pg/mL (211-911)
[2022-02-26 05:11] LABS: ALB/GLOB Ratio 0.7 RATIO (0.9-2.4); AST(SGOT) 48 U/L (15-37); Alanine Aminotransfer ALT/SGPT 31 U/L (13-56); Albumin, Serum 2.2 g/dL (3.2-5.0); Alkaline Phosphatase 216 U/L (45-117); Anion Gap 7 (5-15); BUN 21 mg/dL (7-18); Calcium,Total 7.5 mg/dL (8.5-10.1); Chloride 112 mmol/L (98-107); Creatinine, Serum 0.84 mg/dL (0.55-1.02); EST Glomerular Filtration Rate 70 mL/min (>60); Est Glom Filt Rate - Afr Amer 84 mL/min (>60); Estimated Creatinine Clearance 55.68 ml/min; Globulin 3.1 g/dL (2.2-4.2); Glucose 79 mg/dL (74-106); Potassium 3.6 mmol/L (3.5-5.1); Protein, Total 5.3 g/dL (6.4-8.2); Sodium Level 144 mmol/L (136-145)
[2022-02-26] MEDS: Menthol/Lanolin/Calamine/Znox 113 GM Tube 1 APPLIC TOPICAL ×3 (05:13→21:36)
[2022-02-26] MEDS: Metoprolol Tartrate 5 MG/5 ML Vial IV ×2 (05:14→21:41)
--- NOTE | 2022-02-26 06:50 | PN.CC_ITS ---
Assessment & Plan Assessment/Plan (1) Acute encephalopathy: PLAN: Plan RECOMMENDATIONS: 1. Continue Unasyn to cover for potential aspiration. 2. Swallow evaluation this morning. Dietary advancement per speech therapy. 3. Continue amiodarone infusion. Can transition to p.o. amiodarone per home regimen once diet is able to be advanced. 4. Gentle IV fluid hydration while NPO. 5. Avoid sedating medications, if feasible. 6. Given the patient's lack of further ICU or pulmonary needs, will sign off. Please call with any additional questions. IMPRESSIONS: 1. Encephalopathy I suspect that the patient's presenting encephalopathy is likely multifactorial in etiology. In addition to her baseline Alzheimer's dementia, I do suspect a component of polypharmacy as the patient appears to be on a number of sedating/altering medications including Xanax, Zyprexa and oxycodone. Additionally, underlying infection could also be contributing. The patient was previously on a modified diet over concerns for swallowing difficulties. Accordingly, aspiration pneumonia is a possibility. For now, we will plan to continue empiric antimicrobials, while awaiting infectious work-up. Speech therapy is following with tentative plans for a swallow evaluation today. 2. Alzheimer's dementia Continue supportive care as noted above. Attempt to avoid sedating medications, if feasible. 3. Recent mechanical fall resulting in left femoral neck fracture status post hemiarthroplasty The patient was initially admitted to the TCU for rehabilitation. However, the patient is quite debilitated and her underlying behavioral disturbances will likely significantly limit her rehab potential. 4. Atrial fibrillation/anemia/hypertension/hyperlipidemia Complicates care, management, recovery and prognosis. Continue home medications as indicated. This note was generated with [email or web address] dictation software. It may contain incorrect words, spelling, and punctuation that were not noted in checking the note before signing. Subjective Subjective The patient was seen and examined at the bedside this morning. Events from the last 24 hours have been reviewed. The patient is currently afebrile, hemodynamically stable and maintaining appropriate oxygen saturations on room air. The patient has been persistently tachycardic throughout the day yesterday. She did not sleep well overnight. Ultimately, the patient did require Sosa catheter placement. A swallow study has been tentatively scheduled for today. The patient is documented to be overall net +2.6 L for the hospitalization. Objective Data Objective Data The patient's most recent lab work, culture data and imaging studies have all been personally reviewed. Surface echocardiogram dated February 05, 2022 demonstrated normal LV size with an ejection fraction of 55%. Blood and urine cultures are pending. Vital Signs: Vital Signs Temp Pulse Resp BP Pulse Ox O2 Del Method O2 Flow Rate 97.9 F 144 H 19 H 160/86 H 96 Room Air 2 02/26/22 02:30 02/26/22 05:14 02/26/22 04:00 02/26/22 05:14 02/26/22 02:30 02/26/22 04:00 02/25/22 11:00 Oxygen Flow Rate (L/min) 2 Oxygen Delivery Method Room Air Weight: 156 lb 11.979 oz Body Mass Index (BMI) 23.1 Intake & Output: Intake and Output for Last 24 Hours 02/24/22 02/25/22 02/26/22 23:59 23:59 23:59 Intake Total 3072 / 3072 224 / 224 Output Total 350 / 350 250 / 250 Balance 2721 / 272 - Lab / Micro Data Attestation: I reviewed the patient's lab results. Result Diagrams: 02/26/22 03:50 02/26/22 03:50 Labs: Laboratory Results - last 24 hr 02/25/22 05:18: COVID-19 (AUDREY) Not Detected 02/26/22 03:50: WBC 6.5, RBC 2.71 L, Hgb 9.7 L, Hct 29.9 L, MCV 110.3 H, MCH 3 5.8 H, MCHC 32.4, RDW Std Deviation 76.6 H, RDW Coeff of Dorota 19.1 H, Plt Count 199, MPV 10.0, Immature Gran % (Auto) 0.300, Neut % (Auto) 71.1 H, Lymph % (Auto) 15.3 L, Mercer % (Auto) 10.5 H, Eos % (Auto) 2.5, Baso % (Auto) 0.3, Absolute Neuts (auto) 4.6, Absolute Lymphs (auto) 0.99, Nucleated RBC % 0, Differential Comment SCANNED, Polychromasia 1+, Anisocytosis 2+, Microcytosis 1+, Macrocytosis 1+, Ovalocytes RARE 02/26/22 03:50: PT 23.7 H, INR 2.2 02/26/22 03:50: Sodium 144, Potassium 3.6, Chloride 112 H, Carbon Dioxide 25.0, Anion Gap 7, BUN 21 H, Creatinine 0.84, Estim Creat Clear Calc 55.68, Est GFR (MDRD) Af Amer 84, Est GFR (MDRD) Non-Af 70, BUN/Creatinine Ratio 25.0 H, Glucose 79, Calcium 7.5 L, Total Bilirubin 0.70, AST 48 H, ALT 31, Alkaline Phosphatase 216 H, Total Protein 5.3 L, Albumin 2.2 L, Globulin 3.1, Albumin/Globulin Ratio 0.7 L, Folate 8.50 02/26/22 03:50: Vitamin B12 469 Micro: Microbiology 02/25/22 05:18 Mucosa - Nasopharyngeal Respiratory Panel (PCR) - Final 02/25/22 01:20 Urine, Clean Catch Legionella Antigen - Final 02/25/22 01:20 Urine, Clean Catch Streptococcus pneumoniae Antigen (M - Final Physical Exam Const alert Orientation / Consciousness: confused and disoriented Exam Limitations: altered mental status and behavioral limitations HEENT normocephalic and head/scalp atraumatic Eyes PERRL, EOMs intact bilaterally and conjunctivae normal Neck supple General: trachea midline Chest inspection of chest normal Resp normal respiratory effort Auscultation: diminished lung sounds Cardio S1 normal heart sound and S2 normal heart sound Rate: tachycardic Rhythm: abnormal rhythm GI normal to inspection, nondistended, normoactive bowel sounds Extremity no clubbing, cyanosis or edema Skin no rashes or lesions noted Neuro moves all extremities and no focal motor deficits Psych Activity / Motor Behavior: restless Charges/Coding Visit Charges Inpatient E&M: 89105 Subs Hosp L3
--- NOTE | 2022-02-26 07:29 | PCM.PN.HOSP ---
Subjective Subjective Seen and examined. Follow-up for acute encephalopathy and A. fib with RVR. Patient started on amiodarone drip for uncontrolled heart rate from 120s to 140s per minute. Confusion is better. Patient cannot tell her name and birthday but is still confused between day and night in place. Objective Data Objective Data Vital Signs: Vital Signs Temp Pulse Resp BP Pulse Ox O2 Del Method O2 Flow Rate 97.9 F 144 H 19 H 160/86 H 96 Room Air 2 02/26/22 02:30 02/26/22 05:14 02/26/22 04:00 02/26/22 05:14 02/26/22 02:30 02/26/22 04:00 02/25/22 11:00 Oxygen Flow Rate (L/min) 2 Oxygen Delivery Method Room Air Weight: 156 lb 11.979 oz Body Mass Index (BMI) 23.1 Intake & Output: Intake and Output for Last 24 Hours 02/24/22 02/25/22 02/26/22 23:59 23:59 23:59 Intake Total 3072 / 3072 224 / 224 Output Total 350 / 350 250 / 250 Balance 2722 / 2722 - Lab / Micro Data Result Diagrams: 02/26/22 03:50 02/26/22 03:50 Labs: Laboratory Results - last 24 hr 02/25/22 05:18: COVID-19 (AUDREY) Not Detected 02/26/22 03:50: WBC 6.5, RBC 2.71 L, Hgb 9.7 L, Hct 29.9 L, MCV 110.3 H, MCH 35.8 H, MCHC 32.4, RDW Std Deviation 76.6 H, RDW Coeff of Dorota 19.1 H, Plt Count 199, MPV 10.0, Immature Gran % (Auto) 0.300, Neut % (Auto) 71.1 H, Lymph % (Auto) 15.3 L, [place] % (Auto) 10.5 H, Eos % (Auto) 2.5, Baso % (Auto) 0.3, Absolute Neuts (auto) 4.6, Absolute Lymphs (auto) 0.99, Nucleated RBC % 0, Differential Comment SCANNED, Polychromasia 1+, Anisocytosis 2+, Microcytosis 1+, Macrocytosis 1+, Ovalocytes RARE 02/26/22 03:50: PT 23.7 H, INR 2.2 02/26/22 03:50: Sodium 144, Potassium 3.6, Chloride 112 H, Carbon Dioxide 25.0, Anion Gap 7, BUN 21 H, Creatinine 0.84, Estim Creat Clear Calc 55.68, Est GFR (MDRD) Af Amer 84, Est GFR (MDRD) Non-Af 70, BUN/Creatinine Ratio 25.0 H, Glucose 79, Calcium 7.5 L, Total Bilirubin 0.70, AST 48 H, ALT 31, Alkaline Phosphatase 216 H, Total Protein 5.3 L, Albumin 2.2 L, Globulin 3.1, Albumin/Globulin Ratio 0.7 L, Folate 8.50 02/26/22 03:50: Vitamin B12 469 Micro: Microbiology 02/25/22 05:18 Mucosa - Nasopharyngeal Respiratory Panel (PCR) - Final 02/25/22 01:20 Urine, Clean Catch Legionella Antigen - Final 02/25/22 01:20 Urine, Clean Catch Streptococcus pneumoniae Antigen (M - Final Physical Exam Narrative General: Awake, delirium, disoriented. Pleasantly confused. HEENT: Atraumatic, PERRLA, EOMI, Normocephalic Oral: Oral mucosa moist. Deep oropharyngeal could not be examined Neck: Supple, No JVD, Negative Carotid Bruits Lungs: Air entry diminished in bilateral lung bases. No crepitation/rhonchi Cardiovascular: A. fib with RVR, normal S1, Normal S2, No murmurs Abdomen: Bowel Sounds Present, Soft, Non Tender, Non-Distended : Pure wick catheter no urine output. No renal angle tenderness. No suprapubic tenderness. Extremities: Bilateral 2+ pitting edema, Capillary Refill Less than 3 Seconds Skin: No rashes, No breakdown Musculoskeletal: No Tenderness to Palpation of Joints or Extremities Neurological: Neuro exam unobtainable. Psych/Mental Status: Quiet, disoriented Assessment & Plan Assessment/Plan (1) Acute encephalopathy: PLAN: Plan This is a 76-year-old female admitted from TCU with worsening confusion, fever. Patient had mechanical fall complicated to left femoral neck fracture status post left hemiarthroplasty on February 05 and was in TCU for rehab. 1. Acute encephalopathy, multifactorial in etiology, metabolic/infection and most important polypharmacy: Patient has a baseline history of Alzheimer's dementia with underlying behavioral disorder: Patient is being admitted in ICU. She is in hyperactive delirium, agitated and restless. To treat underlying disorder. Unasyn is ordered with concern of aspiration/potential aspiration pneumonia. Patient not able to follow commands and swallow, speech therapy ordered. COVID-19 PCR negative. Procalcitonin 0.21. 02/26: Swallow study scheduled for today. Her confusion level is better than yesterday. She is more quiet and she can be directed to follow simple commands. Denies chest pain or shortness of breath. 2. Recent fall with left lower leg fracture status post hemiarthroplasty on February 05: PT and OT ordered. 3. Bilateral pleural effusion right greater than left: Echo on 02/05/2022 reported EF 50 to 55% with mild AI, normal LV systolic function. Chest x-ray and CTA individually reviewed shows moderate pleural effusion right more than left with underlying interstitial infiltrates. 4. Chronic A. fib, INR therapeutic, 2.3. On IV heparin drip interim till warfarin is on hold. IV metoprolol for rate control. 02/26: A. fib with RVR, remained tachycardic on 02/25, heart rate ranges 110s to 120s and at times 140s. The patient on amiodarone drip. INR 2.2. 5. Other multiple comorbidities include chronic macrocytic anemia, hypertension, dyslipidemia, GERD: Patient baseline hemoglobin runs between 9 to 10 g. Most recent hemoglobin 10.2 g%. Platelet count 227,000. CODE STATUS: DNR CCA, no intubation, no aggressive interventions. Total time of the visit including total time spent in counseling or coordination of care, (more than 50% of the total time, spent in obtaining medical information from nurses and other ancillary care providers,explaining to the patient about labs, imaging, diagnosis and management of active complex medical conditions), discussion with digital media sales consultant, medical record review, review of labs and imaging is 40 minutes. Microbiology Past 72 Hours 02/25/22 05:18 Mucosa - Nasopharyngeal Respiratory Panel (PCR) - Final 02/25/22 01:20 Urine, Clean Catch Legionella Antigen - Final 02/25/22 01:20 Urine, Clean Catch Streptococcus pneumoniae Antigen (M - Final Laboratory Results 02/26/22 03:50: WBC 6.5, RBC 2.71 L, Hgb 9.7 L, Hct 29.9 L, MCV 110.3 H, MCH 35.8 H, MCHC 32.4, RDW Std Deviation 76.6 H, RDW Coeff of Dorota 19.1 H, Plt Count 199, MPV 10.0, Immature Gran % (Auto) 0.300, Neut % (Auto) 71.1 H, Lymph % (Auto) 15.3 L, [place] % (Auto) 10.5 H, Eos % (Auto) 2.5, Baso % (Auto) 0.3, Absolute Neuts (auto) 4.6, Absolute Lymphs (auto) 0.99, Nucleated RBC % 0, Differential Comment SCANNED, Polychromasia 1+, Anisocytosis 2+, Microcytosis 1+, Macrocytosis 1+, Ovalocytes RARE 02/26/22 03:50: PT 23.7 H, INR 2.2 02/26/22 03:50: Sodium 144, Potassium 3.6, Chloride 112 H, Carbon Dioxide 25.0, Anion Gap 7, BUN 21 H, Creatinine 0.84, Estim Creat Clear Calc 55.68, Est GFR (MDRD) Af Amer 84, Est GFR (MDRD) Non-Af 70, BUN/Creatinine Ratio 25.0 H, Glucose 79, Calcium 7.5 L, Total Bilirubin 0.70, AST 48 H, ALT 31, Alkaline Phosphatase 216 H, Total Protein 5.3 L, Albumin 2.2 L, Globulin 3.1, Albumin/Globulin Ratio 0.7 L, Folate 8.50 02/26/22 03:50: Vitamin B12 469 Charges/Coding Visit Charges Inpatient E&M: 80508 Subs Hosp L3
[2022-02-26] MEDS: Amiodarone 360 MG in Dextrose 5% Viaflo Bag 192.8 ML 33.3 MG CONT INF (07:45)
--- NOTE | 2022-02-26 08:18 | CASEMGMT ---
RN CM readmission note: Prior admission: Admitted from home 02/05/22 for PAF w/RVR, Hip fx, writs fx, and falls. Discharged to TCU w/debility 02/13/22. Plan was for pt to discharge to [facility] under pending FELIX from [facility] 02/25/22. DIL and son agreed to start Palliative services and may consider transition to hospice. Pt sent to ER 02/25 from TCU w/fever and altered mental status. Current admission: Admitted 02/25/22 w/encephalopathy and SIRS. Plan is to discharge to [facility] @ discharge, once medically ready. Reinier LARKIN RN CM
[2022-02-26] MEDS: 0.9% Normal Saline 1,000 ML 75 ML IV (10:27)
--- NOTE | 2022-02-26 10:43 | TREXTCAR_ITS ---
Diet Diet Order/Speech Therapy: 02/25/22 07:01 Diet: Nothing Per Oral Routine Orders/Code Status Suppository Type: Dulcolax 10mg Suppository Frequency: Daily PRN Code Status: DNRCC-A Wound(s) generalized: Wound Type: scabs coccyx: Wound Type: Pressure Injury Therapies Weight Bearing: Weight bearing as tolerated Extremity Affected:: Bilateral Lower Physical Therapy: Eval and Treat Occupational Therapy: Eval and Treat Speech Therapy: Eval and Treat Problem/Diagnosis (1) Acute encephalopathy: Status: Acute Code(s): G93.40 - Encephalopathy, unspecified Plan This is a 76-year-old female admitted from TCU with worsening confusion, fever. Patient had mechanical fall complicated to left femoral neck fracture status post left hemiarthroplasty on February 05 and was in TCU for rehab. 1. Acute encephalopathy, multifactorial in etiology, metabolic/infection and most important polypharmacy: Patient has a baseline history of Alzheimer's dementia with underlying behavioral disorder: Patient is being admitted in ICU. She is in hyperactive delirium, agitated and restless. To treat underlying disorder. Unasyn is ordered with concern of aspiration/potential aspiration pneumonia. Patient not able to follow commands and swallow, speech therapy ordered. COVID-19 PCR negative. Procalcitonin 0.21. 02/26: Swallow study scheduled for today. 2. Recent fall with left lower leg fracture status post hemiarthroplasty on February 05: PT and OT ordered. 3. Bilateral pleural effusion right greater than left: Echo on 02/05/2022 reported EF 50 to 55% with mild AI, normal LV systolic function. Chest x-ray and CTA individually reviewed shows moderate pleural effusion right more than left with underlying interstitial infiltrates. 4. Chronic A. fib, INR therapeutic, 2.3. On IV heparin drip interim till w arfarin is on hold. IV metoprolol for rate control. 02/26: A. fib with RVR, remained tachycardic on 02/25, heart rate ranges 110s to 120s and at times 140s. The patient on amiodarone drip. 5. Other multiple comorbidities include chronic macrocytic anemia, hypertension, dyslipidemia, GERD: Patient baseline hemoglobin runs between 9 to 10 g. Most recent hemoglobin 10.2 g%. Platelet count 227,000. CODE STATUS: DNR CCA, no intubation, no aggressive interventions. Total time of the visit including total time spent in counseling or coordination of care, (more than 50% of the total time, spent in obtaining medical information from nurses and other ancillary care providers,explaining to the patient about labs, imaging, diagnosis and management of active complex medical conditions), discussion with apprenticeship consultant, medical record review, review of labs and imaging is 40 minutes. Microbiology Past 72 Hours 02/25/22 05:18 Mucosa - Nasopharyngeal Respiratory Panel (PCR) - Final 02/25/22 01:20 Urine, Clean Catch Legionella Antigen - Final 02/25/22 01:20 Urine, Clean Catch Streptococcus pneumoniae Antigen (M - Final Laboratory Results 02/25/22 05:18: COVID-19 (AUDREY) Not Detected 02/26/22 03:50: WBC 6.5, RBC 2.71 L, Hgb 9.7 L, Hct 29.9 L, MCV 110.3 H, MCH 35.8 H, MCHC 32.4, RDW Std Deviation 76.6 H, RDW Coeff of Dorota 19.1 H, Plt Count 199, MPV 10.0, Immature Gran % (Auto) 0.300, Neut % (Auto) 71.1 H, Lymph % (Auto) 15.3 L, [place] % (Auto) 10.5 H, Eos % (Auto) 2.5, Baso % (Auto) 0.3, Absolute Neuts (auto) 4.6, Absolute Lymphs (auto) 0.99, Nucleated RBC % 0, Differential Comment SCANNED, Polychromasia 1+, Anisocytosis 2+, Microcytosis 1+, Macrocytosis 1+, Ovalocytes RARE 02/26/22 03:50: PT 23.7 H, INR 2.2 02/26/22 03:50: Sodium 144, Potassium 3.6, Chloride 112 H, Carbon Dioxide 25.0, Anion Gap 7, BUN 21 H, Creatinine 0.84, Estim Creat Clear Calc 55.68, Est GFR (MDRD) Af Amer 84, Est GFR (MDRD) Non-Af 70, BUN/Creatinine Ratio 25.0 H, Glucose 79, Calcium 7.5 L, Total Bilirubin 0.70, AST 48 H, ALT 31, Alkaline Phosphatase 216 H, Total Protein 5.3 L, Albumin 2.2 L, Globulin 3.1, Albumin/Globulin Ratio 0.7 L, Folate 8.50 08/26/22 03:50: Vitamin B12 469 Allergies/Procedures Done in Hospital Allergies meloxicam [From Mobic] Allergy (Verified 02/05/22 00:18) PT UNSURE OF REACTION amoxicillin [From Augmentin] Adverse Reaction (Verified 02/05/22 00:18) Other clavulanic acid [From Augmentin] Adverse Reaction (Verified 02/05/22 00:18) Other Type of Care/Length of Stay Estimated LOS: Convalescent Care Less Than 30 days Type of Care Needed: Skilled Rehab Potential: Good Prognosis: Good Additional Orders/Day of Discharge Day of Discharge: 02/26/22 Dietary and Speech Recommendations Dietitian Recommendations/Changes: regular diet- texture/consistency per RASCHEL KNITTING MACHINE OPERATOR (was pureed on TCU); ensure w/ medpass when appropriate for PO intake Discharge Plan Admission Admit Date/Time: 02/25/22 05:11 Primary Reason for Your Visit: Acute encephalopathy, A. fib RVR Attending Provider: Jose Luis Cloud Primary Care Provider: Michael Phillips Consulting Providers: Sierra Duran ; Trever Queen Discharge Orders/Prescriptions Prescriptions: New menthol-zinc oxide [Calmoseptine] 0.44-20.6 % Ointment 1 applic topical TID Qty: 0 0RF Protocol: *Topical Application Instructions APPLICATION INSTRUCTIONS: buttocks Continued warfarin 2 mg tablet 2 mg PO DAILY Label Comments: TAKE 1 TABLET BY MOUTH EVERY DAY fluticasone propionate 50 mcg/actuation [place],Suspension 2 spray INTRANASAL DAILY PRN (Reason: Congestion) Rx Instructions: administer into each nostril metoprolol tartrate 100 mg tablet 100 mg PO BID sennosides-docusate sodium [Stool Softener-Stimulant Laxat] 8.6-50 mg tablet 2 tab PO BID olanzapine 10 mg tablet 20 mg PO HS pantoprazole 40 mg tablet,delayed release (DR/EC) 40 mg PO DAILY warfarin [Jantoven] 1 mg tablet 1 mg PO 1700 alprazolam 0.25 mg Tablet 0.25 mg PO TID PRN PRN (Reason: Anxiety/Restlessness/Sleep) 3 Days Qty: 9 0RF mirtazapine 15 mg Tablet 7.5 mg PO QHS Qty: 0 0RF oxycodone 5 mg Tablet 5 mg PO Q4H PRN PRN (Reason: Pain Score 6-10) 3 Days Qty: 18 0RF oxycodone 5 mg tablet 5 mg PO Q4H PRN (Reason: pain) 3 Days Qty: 18 0RF Changed acetaminophen 500 mg Tablet 1,000 mg PO Q8H Qty: 0 0RF Held furosemide 40 mg Tablet 40 mg PO DAILY Qty: 0 0RF Hold Instructions: Hold for 1 week. Discontinued amiodarone 200 mg tablet 200 mg PO DAILY Rx Instructions: START ONCE DAILY ON 02/19/22 FOLLOWING TRANSITION OFF 200 MG BID REGIMEN. alprazolam [Xanax] 0.25 mg tablet 0.25 mg PO TID PRN (Reason: anxiety) 3 Days Qty: 9 0RF Referrals / Follow Up: Michael Phillips MD [Primary Care Provider] - Disposition Disposition (needs filled in before D/C Order can be placed): [facility]
--- NOTE | 2022-02-26 11:16 | CASEMGMT ---
Family is not ready for Hospice yet. SW will complete a level of care for patient in the event she is ready over the weekend. Aide SINGLETON
--- NOTE | 2022-02-26 12:51 | SP.MBSS_ITS ---
Modified Barium Swallow - Patient Information Study Date: 02/26/22 Study Time: 12:00 Direct Billable Minutes: 108 Total Minutes procedure & reportin Diagnosis: Acute encephalopathy (F93.40), Alzheimer's (G30.9) Referring Physician: Jose Luis Cloud Reason for Referral: Objectively assess swallow function, risk for aspiration, and determine recommendations for least restrictive diet textures and compensatory strategies to improve safety of swallow. Medical History: The patient is a 76 year-old female with PMH including Chronic AF, Recurrent Fall Hx, GERD, HTN, HLD, Anxiety & Depression, Alzheimer's disease w/ Dementia with behavioral disturbance history, recent 02/05/22 admission for fall with acute subcapital fx L femoral neck s/p L hip hemiarthroplasty with transition following to TCU for ongoing therapies who presented to the [facility] ED on 02/25/22 with increased confusion above baseline in addition to onset of fever and increased agitation over the last 2 to 3 days. Pt refused taking any medications. Chest x-ray with bilateral pleural effusions and questionable edema unchanged from prior. Pt admitted for management of acute encephalopathy amongst other comorbidities. She was initially made NPO due to lethargy and concern for aspiration PNA. Pt was recommended for MBSS prior to diet advancement to assess for swallow dysfunction and aspiration risk. Current Diet Ordered: NPO Dentition: Missing Teeth Mental Status: Impaired - hx of Alzheimer's disease Respiratory Status: Oxygenating on Room Air - Penetration-Aspiration Scale Penetration-Aspiration Scale: OBJECTIVE ASSESSMENT OF SWALLOW FUNCTION (QUANTITATIVE ? PER TRIAL): PENETRATION / ASPIRATION SCALE (RAMIREZ): 1 = does not enter airway 2 = enters airway/above vocal folds/ejected 3 = enters airway/above vocal folds/not ejected 4 = enters airway/contacts vocal folds/ejected 5 = enters airway/contacts vocal folds/not ejected 6 = enters airway/below vocal folds/ejected 7 = enters airway/below vocal folds/not ejected despite effort 8 = enters airway/below vocal folds/no effort VIDEOFLOROSCOPIC SCALE SCORE (RAMIREZ): Grade I = aspiration of material that has penetrated into the laryngeal vestibule, intact cough reflex Grade II = aspiration < 10 % of the bolus, intact cough reflex Grade III = aspiration of < 10 % of the bolus, reduced cough reflex or aspiration of > 10 % of the bolus, intact cough reflex Grade IV = aspiration of > 10 % of the bolus, reduced cough reflex - Penetration-Aspiration Scale Score Thin Liquid via teaspoon Result: 1= does not enter airway Thin Liquid via teaspoon Trial 2 Result: 2= enter airway/above vocal folds/ejected Thin Liquid via teaspoon Trial 3 Result: 8= enters airway/below vocal folds/no effort Mccall Thick Liquid via teaspoon Result: 2= enter airway/above vocal folds/ejected Mccall Thick Liquid via small single sip from cup Result: 2= enter airway/above vocal folds/ejected - Cued cough and re-swallow to clear the laryngeal vestibule of aspirated contrast. Weak, ineffective volitional cough. The patient was unable to follow commands to re-swallow. Honey Thick Liquid via teaspoon Result: 2= enter airway/above vocal folds/ejected - Suspect post prandial penetration of nectar thick liquid contrast, as there was increased contrast in the laryngeal vestibule prior to HTL trial. Pudding via teaspoon with esophageal screen Result: 1= does not enter airway - Contrast below the vocal folds during the swallow - REAL ESTATE PHOTOGRAPHER suspects SILENT post prandial aspiration of residue of nectar thick liquid trial remaining in the laryngeal vestibule.. Honey Thick Liquid via small single sip from cup Result: 1= does not enter airway Mccall Thick Liquid via teaspoon Trial 2 Result: 1= does not enter airway 1/4 Cookie Result: 1= does not enter airway - Oral Phase Labial Seal: No Labial Escape Tongue Control During Bolus Hold: Posterior escape of greater than half of bolus Bolus Preparation/Mastication: Slow prolonged chewing/mashing with complete recollection Bolus Transport/Lingual Motion: Slowed tongue motion Oral Residue: Trace residue lining oral structures - Pharyngeal Phase Initiation of Pharyngeal Swallow: Bolus head in pyriforms Soft Palate Elevation: No bolus between soft palate and pharyngeal wall Laryngeal Elevation: Partial superior movement thyroid cart/partial apprx aryt- epig petiole Anterior Hyoid Excursion: Partial anterior movement Epiglottic Movement: Complete inversion Laryngeal Vestibule Closure at Height of Swallow: Incomplete; narrow column of air/contrast in laryngeal vestibule Pharyngeal Stripping Wave: Present - diminished Pharyngoesophageal Segment Opening: Parital distension and partial duration; parital obstruction of flow Tongue Base Retraction: Narrow column of contrast between tongue base & post. pharyngeal wall Pharyngeal Residue: Trace residue within or on pharyngeal structures - Esophageal Phase Esophageal Clearance: Esophageal retention w/ retrograde flow below pharyngoesophageal seg. - Treatment Strategies Effects of treatment strategies attemped:: Decreased bolus size = Effective. - Diagnosis/Impression Diagnosis: Moderate-severe oropharyngeal phase dysphagia (R13.12) Impression: Pt is very kyphotic. The patient was positioned slightly reclined for the study to capture the best possible images of her swallow. The oral phase is marked by... -Decreased bolus control with premature posterior loss of >1/2 the bolus to the pyriforms prior to swallow onset resulting in suboptimal bolus placement prior to swallow onset. This decreased bolus control was most notable with thin liquid trials. -Prolonged, disorganized mastication; however, cookie bolus appeared to be fully chewed. -Trace oral residue after the swallow. -Slowed tongue motion for A-P transport. The pharyngeal phase is marked by... -Moderately delayed initiation of the pharyngeal swallow. -Mildly decreased pharyngeal contraction, tongue base retraction, and UES opening resulting in trace pharyngeal residues. -Decreased airway closure during the swallow due to decreased anterior hyoid excursion and laryngeal elevation. -The patient demonstrated SILENT aspiration of thin liquids by tsp. Additionally, REAL ESTATE PHOTOGRAPHER suspects silent post prandial aspiration of cup sips of nectar/mildly thick liquids. She requires sips by tsp. SEE PAS scores above for full details regarding laryngeal penetration and aspiration during the study. The esophageal phase is marked by... -Esophageal retention of pudding in the lower esophagus with retrograde flow to the mid esophagus. -The patient is at risk for reflux aspiration. - Recommendations Diet: Mccall-thick Liquids - Minced and Moist textures (IDDSI Level 5) Comment: Discontinue meal if increased s/s of aspiration. She is at risk for reflux aspiration. Compensatory Strategies: Small Bites, Small Sips, Liquid by Teaspoon Only, Slow Rate, Alternate bites/solids and sips/liquids, Sitting upright, Remain sitting upright for 30 minutes after PO intake Supervision: Total Feed Recommend Repeat Modified Barium Swallow: TBD Need for Skilled Speech Therapy Services: Yes Comment: Will recommend the patient for continued dysphagia therapy to address moderate- severe deficits in oropharyngeal swallow function. Would consider the patient for oropharyngeal strengthening as able (pt has difficulty following commands) to improve lingual strength/coordination, laryngeal elevation, hyoid excursion, and pharyngeal contraction (lingual resistance, CTAR, effortful swallow). The patient's caregivers would benefit from thorough education regarding diet recommendations and recommended compensatory strategies. At next level of care, would consider implementing a [place] Free Water Protocol (FFWP) if deemed clinically appropriate by the treating REAL ESTATE PHOTOGRAPHER to encourage hydration and promote increased opportunities for swallowing throughout the day. Recommended Referrals: GI Consult - Consider GI consult due to esophageal retention of pudding with retrograde flow to mid esophagus. Education Completed: 1. Described result of evaluation., 7. Pt requires further education on strategies & risks. - Status Active ST Patient: Active - Contact Information [facility] Speech Therapy:: Juana Maki M.A. [facility]-REAL ESTATE PHOTOGRAPHER Speech-Language Pathologist [facility] [address] [place] [address] [email or web address] [phone] 02/26/22 14:45
[2022-02-26] MEDS: 0.9% Saline Lock 10 ML Syringe IV (13:54)
[2022-02-26] MEDS: Amiodarone 360 MG in Dextrose 5% Viaflo Bag 192.8 ML 16.7 MG CONT INF (14:22)
--- NOTE | 2022-02-26 14:27 | CASEMGMT ---
JENNIFER faxed all necessary information to [facility] to obtain a level of care. Aide Hay ARCHITECT IN TRAINING MANI
--- NOTE | 2022-02-26 15:22 | CASEMGMT ---
SW received a level of care from [facility]. JENNIFER sent this along with updates to [facility]. Green sheet will be on the chart in case patient is ready for discharge over the weekend. Plan: d/c to [facility] under intermediate level of care. Aide SINGLETON
[2022-02-26] MEDS: 0.9% Normal Saline 1,000 ML 999 ML IV (18:30)
[2022-02-27] VITALS (34 sets, daily range): BP systolic 79–127; BP diastolic 48–98; PULSE 95–153; RESP 18–37; TEMP 36.6–37.3; O2SAT 87–95
[2022-02-27] MEDS: 0.9% Normal Saline 1,000 ML 75 ML IV ×2 (02:10→12:34)
[2022-02-27] MEDS: Amiodarone 360 MG in Dextrose 5% Viaflo Bag 192.8 ML 16.7 MG CONT INF (04:23)
[2022-02-27] MEDS: Menthol/Lanolin/Calamine/Znox 113 GM Tube 1 APPLIC TOPICAL ×3 (06:14→21:13)
[2022-02-27 08:17] LABS: Absolute Lymphocyte Count 1.33 X10^3/uL (0.83-4.51); Absolute Neutrophil Count 4.5 X10^3/uL (2.0-7.7); Basophil# 0.04 X10^3/uL; Basophil% 0.6 % (0-1); Eosinophil# 0.24 X10^3/uL; Eosinophils% 3.6 % (0-5); Hematocrit 30.5 % (37-47); Hemoglobin 9.5 g/dL (12.0-15.0); Lymphocyte # 1.33 X10^3/ul (0.83-4.51); Lymphocyte % 19.9 % (19-41); Mean Corp Hgb Conc 31.1 g/dL (32-36); Mean Corpuscular Hgb 34.5 pg (27.0-32.0); Mean Corpuscular Volume 110.9 fL (81-99); Mean Platelet Vol. 9.7 fl (6.2-12.0); Monocyte# 0.53 X10^3/uL; Monocyte% 7.9 % (0-10); NRBC Flagged by Analyzer 0 % (0-5); Neutrophil # 4.52 X10^3/uL (2.7-7.7); Neutrophil % 67.6 % (47-70); POSITIVE MORPHOLOGY YES; Platelet Count 203 K/mm3 (150-450); RBC Distribution Width CV 18.7 % (11.6-14.6); Red Blood Count 2.75 M/mm3 (4.2-5.4); White Blood Count 6.7 K/mm3 (4.4-11.0)
[2022-02-27 08:22] LABS: Differential Indicated SCAN CRITERIA MET
[2022-02-27 08:41] LABS: ALB/GLOB Ratio 0.8 RATIO (0.9-2.4); AST(SGOT) 48 U/L (15-37); Alanine Aminotransfer ALT/SGPT 34 U/L (13-56); Albumin, Serum 2.2 g/dL (3.2-5.0); Alkaline Phosphatase 212 U/L (45-117); Anion Gap 6 (5-15); BUN 16 mg/dL (7-18); BUN/Creat Ratio 21.1 RATIO (10-20); Calcium,Total 7.6 mg/dL (8.5-10.1); Chloride 115 mmol/L (98-107); Creatinine, Serum 0.76 mg/dL (0.55-1.02); EST Glomerular Filtration Rate 78 mL/min (>60); Est Glom Filt Rate - Afr Amer 95 mL/min (>60); Estimated Creatinine Clearance 46.77 ml/min; Globulin 2.8 g/dL (2.2-4.2); Glucose 96 mg/dL (74-106); Sodium Level 146 mmol/L (136-145)
[2022-02-27 09:00] LABS: Anisocytosis 1+
--- NOTE | 2022-02-27 09:18 | PCM.PN.HOSP ---
Subjective Subjective Seen and examined. Patient on amnio drip but is still heart rate in 120s and 114/88 her current blood pressure is her blood pressure was in systolic LOW 80's and had to give IV boluses that rest of the blood pressure to systolic 126/70 but she is +6 L Fluid balance as documented. The patient is still in A. fib RVR. Objective Data Objective Data Vital Signs: Vital Signs Temp Pulse Resp BP Pulse Ox O2 Del Method O2 Flow Rate 98.5 F 106 H 20 H 98/57 L 92 Nasal Cannula 2 02/27/22 00:00 02/27/22 07:19 02/27/22 07:00 02/27/22 07:00 02/27/22 07:00 02/27/22 07:00 02/27/22 07:00 Oxygen Flow Rate (L/min) 2 Oxygen Delivery Method Nasal Cannula Weight: 156 lb 11.979 oz Body Mass Index (BMI) 23.1 Intake & Output: Intake and Output for Last 24 Hours 02/25/22 02/26/22 02/27/22 23:59 23:59 23:59 Intake Total 3072 / 3072 3074.18 / 3074.18 1055.82 / 1055.82 Output Total 350 / 350 475 / 475 250 / 250 Balance 2722 / 2722 2599.18 / 2599.18 805.82 / 805.82 Lab / Micro Data Result Diagrams: 02/27/22 07:45 02/27/22 07:45 Micro: Microbiology 02/25/22 05:18 Mucosa - Nasopharyngeal Respiratory Panel (PCR) - Final 02/25/22 01:20 Urine, Clean Catch Legionella Antigen - Final 02/25/22 01:20 Urine, Clean Catch Streptococcus pneumoniae Antigen (M - Final Physical Exam Narrative The patient stated she wants to go home. General: Awake, disoriented. Pleasantly confused. HEENT: Atraumatic, PERRLA, EOMI, Normocephalic Oral: Oral mucosa moist. Delayed swallow function Neck: Supple, No JVD, Negative Carotid Bruits Lungs: Air entry diminished in bilateral lung bases. No crepitation/rhonchi Cardiovascular: A. fib with RVR, normal S1, Normal S2, No murmurs Abdomen: Bowel Sounds Present, Soft, Non Tender, Non-Distended : Pure wick catheter no urine output. No renal angle tenderness. No suprapubic tenderness. Extremities: Bilateral 1+ pitting edema, Capillary Refill Less than 3 Seconds Skin: No rashes, No breakdown Musculoskeletal: No Tenderness to Palpation of Joints or Extremities Neurological: Neuro exam unobtainable. Psych/Mental Status: Amnesia, dementia. Disoriented, does not remember the name of son, [id number] and close relatives. Assessment & Plan Assessment/Plan (1) Acute encephalopathy: PLAN: Plan This is a 76-year-old female admitted from TCU with worsening confusion, fever. Patient had mechanical fall complicated to left femoral neck fracture status post left hemiarthroplasty on February 05 and was in TCU for rehab. 1. Acute encephalopathy, multifactorial in etiology, metabolic/infection and most important polypharmacy: Patient has a baseline history of Alzheimer's dementia with underlying behavioral disorder: Patient is being admitted in ICU. She is in hyperactive delirium, agitated and restless. To treat underlying disorder. Unasyn is ordered with concern of aspiration/potential aspiration pneumonia. Patient not able to follow commands and swallow, speech therapy ordered. COVID-19 PCR negative. Procalcitonin 0.21. 02/26: Swallow study scheduled for today. 02/27: Swallow study was done and recommended minced and moist texture food with nectar thick liquid. Continue IV Unasyn. Urinary antigens are negative. Respiratory panel negative. 2. Recent fall with left lower leg fracture status post hemiarthroplasty on February 05: PT and OT ordered and continue 3. Bilateral pleural effusion right greater than left: Echo on 02/05/2022 reported EF 50 to 55% with mild AI, normal LV systolic function. Chest x-ray and CTA individually reviewed shows moderate pleural effusion right more than left with underlying interstitial infiltrates. 4. Chronic A. fib, INR therapeutic, 2.3. On IV heparin drip interim till warfarin is on hold. IV metoprolol for rate control. 02/26: A. fib with RVR, remained tachycardic on 02/25, heart rate ranges 110s to 120s and at times 140s. The patient on amiodarone drip. 02/27: Her heart rate is still in 110s to 121 on amiodarone drip. Emadine drip converted to amiodarone oral 200 mg 3 times daily. Hypokalemia K3.0. Serum magnesium and phosphorus ordered 5. Other multiple comorbidities include chronic macrocytic anemia, hypertension, dyslipidemia, GERD: Patient baseline hemoglobin runs between 9 to 10 g. Most recent hemoglobin 10.2 g%. Platelet count 227,000. 02/27: Labs reviewed. Hemoglobin 9.5/30.5. Macrocytic anemia. Platelet count 203. CODE STATUS: DNR CCA, no intubation, no aggressive interventions. I talked to the patient's [id number] Mrs. Joann Parrish. Patient is DNR CC arrest no intubation, palliative care measures instituted. Earlier after discussion with occupational health and safety manager, the patient's family does not want hospice care. As the patient heart rate and blood pressure still not controlled on amnio drip optimally, blood pressure sometimes drops to 80s and heart rate in 120s therefore recommended hospice care. Her [id number] will talk to her and will let us know. Total time of the visit including total time spent in counseling or coordination of care, (more than 50% of the total time, spent in obtaining medical information from nurses and other ancillary care providers,explaining to the patient about labs, imaging, diagnosis and management of active complex medical conditions), discussion with automotive consultant, medical record review, review of labs and imaging is 40 minutes. Microbiology Past 72 Hours 02/25/22 05:18 Mucosa - Nasopharyngeal Respiratory Panel (PCR) - Final 02/25/22 01:20 Urine, Clean Catch Legionella Antigen - Final 02/25/22 01:20 Urine, Clean Catch Streptococcus pneumoniae Antigen (M - Final Laboratory Results 02/27/22 07:45: WBC 6.7, RBC 2.75 L, Hgb 9.5 L, Hct 30.5 L, MCV 110.9 H, MCH 34.5 H, MCHC 31.1 L, RDW Std Deviation 75.0 H, RDW Coeff of Dorota 18.7 H, Plt Count 203, MPV 9.7, Immature Gran % (Auto) 0.400, Neut % (Auto) 67.6, Lymph % (Auto) 19.9, [place] % (Auto) 7.9, Eos % (Auto) 3.6, Baso % (Auto) 0.6, Absolute Neuts (auto) 4.5, Absolute Lymphs (auto) 1.33, Nucleated RBC % 0, Anisocytosis 1+ 02/27/22 07:45: Sodium 146 H, Potassium 3.0 L, Chloride 115 H, Carbon Dioxide 25.0, Anion Gap 6, BUN 16, Creatinine 0.76, Estim Creat Clear Calc 46.77, Est GFR (MDRD) Af Amer 95, Est GFR (MDRD) Non-Af 78, BUN/Creatinine Ratio 21.1 H, Glucose 96, Calcium 7.6 L, Total Bilirubin 0.80, AST 48 H, ALT 34, Alkaline Phosphatase 212 H, Total Protein 5.0 L, Albumin 2.2 L, Globulin 2.8, Albumin/Globulin Ratio 0.8 L Charges/Coding Visit Charges Inpatient E&M: 59652 Subs Hosp L3
[2022-02-27] MEDS: Amiodarone 200 MG Tablet PO ×3 (10:05→21:08)
[2022-02-27 10:06] LABS: Magnesium 2.1 mg/dL (1.6-2.6); Phosphorus 1.9 mg/dL (2.5-4.9)
--- NOTE | 2022-02-27 11:21 | CM.UR ---
Per Dr. Cloud, family deciding on hospice referral. SW to follow. Alyssa ASENCIO CM
[2022-02-27] MEDS: Ondansetron 4 MG/2 ML Vial IV (21:17)
--- NOTE | 2022-02-27 23:14 | PCM.HOSP.N ---
Hospitalist Note With recurrent episode of hypotension which from discussion with staff and review of records has been intermittently happening although improved with IV fluids. Given this and current plan of care for transition with palliative to skilled facility potentially tomorrow although more likely would be hospice appropriate from review of records we will give additional fluid bolus and at this time will start midodrine.
[2022-02-27] MEDS: Midodrine HCl 5 MG Tablet 10 MG PO (23:57)
[2022-02-28] VITALS (17 sets, daily range): BP systolic 79–119; BP diastolic 47–80; PULSE 83–141; RESP 14–33; TEMP 36.6–36.9; O2SAT 86–95
[2022-02-28 04:22] LABS: Absolute Lymphocyte Count 1.33 X10^3/uL (0.83-4.51); Basophil# 0.02 X10^3/uL; Basophil% 0.4 % (0-1); Eosinophil# 0.29 X10^3/uL; Eosinophils% 5.6 % (0-5); Hemoglobin 8.3 g/dL (12.0-15.0); Lymphocyte # 1.33 X10^3/ul (0.83-4.51); Lymphocyte % 25.8 % (19-41); Mean Corp Hgb Conc 30.7 g/dL (32-36); Mean Corpuscular Hgb 34.6 pg (27.0-32.0); Mean Corpuscular Volume 112.5 fL (81-99); Mean Platelet Vol. 9.8 fl (6.2-12.0); Monocyte% 9.7 % (0-10); NRBC Flagged by Analyzer 0 % (0-5); Neutrophil # 3.01 X10^3/uL (2.7-7.7); Neutrophil % 58.3 % (47-70); POSITIVE MORPHOLOGY YES; Platelet Count 185 K/mm3 (150-450); RBC Distribution Width CV 18.5 % (11.6-14.6); RBC Distribution Width SD 76.5 fl (35.1-43.9); White Blood Count 5.2 K/mm3 (4.4-11.0)
[2022-02-28 04:25] LABS: Differential Indicated SCAN CRITERIA MET
[2022-02-28] MEDS: 0.9% Normal Saline 1,000 ML 75 ML IV (04:35)
[2022-02-28 05:02] LABS: Anion Gap 6 (5-15); BUN 14 mg/dL (7-18); BUN/Creat Ratio 20.1 RATIO (10-20); Calcium,Total 7.2 mg/dL (8.5-10.1); Chloride 118 mmol/L (98-107); EST Glomerular Filtration Rate 86 mL/min (>60); Est Glom Filt Rate - Afr Amer 104 mL/min (>60); Estimated Creatinine Clearance 46.77 ml/min; Glucose 93 mg/dL (74-106); Sodium Level 148 mmol/L (136-145)
[2022-02-28 05:18] LABS: Anisocytosis 2+; Differential Comment SCANNED
[2022-02-28 05:19] LABS: Macrocytosis 2+
[2022-02-28 05:20] LABS: Ovalocyte 1+; Polychromasia 1+
[2022-02-28 05:22] LABS: Acanthocytes RARE
[2022-02-28] MEDS: Amiodarone 200 MG Tablet PO (06:36)
[2022-02-28] MEDS: Menthol/Lanolin/Calamine/Znox 113 GM Tube 1 APPLIC TOPICAL (06:39)
--- NOTE | 2022-02-28 08:22 | TREXTCAR_ITS ---
Diet Diet Order/Speech Therapy: 02/26/22 12:49 Diet: Regular - General Food consistency:: Mechanical (Minced/Moist) Liquid Consistency:: [place]/Mildly Thick Is pt able to select menu?: No Diet Comments: TOTAL FEED, liquid by tsp only, discont. meal if increased s/s of asp. Routine Orders/Code Status Suppository Type: Dulcolax 10mg Suppository Frequency: Daily PRN Code Status: DNRCC-A Wound(s) generalized: Wound Type: scabs coccyx: Wound Type: Pressure Injury Therapies Weight Bearing: Weight bearing as tolerated Extremity Affected:: Bilateral Lower Physical Therapy: Eval and Treat Occupational Therapy: Eval and Treat Speech Therapy: Eval and Treat Problem/Diagnosis (1) Acute encephalopathy: Status: Acute Code(s): G93.40 - Encephalopathy, unspecified Plan This is a 76-year-old female admitted from TCU with worsening confusion, fever. Patient had mechanical fall complicated to left femoral neck fracture status post left hemiarthroplasty on February 05 and was in TCU for rehab. 1. Acute encephalopathy, multifactorial in etiology, metabolic/infection and most important polypharmacy: Patient has a baseline history of Alzheimer's dementia with underlying behavioral disorder: Patient is being admitted in ICU. She is in hyperactive delirium, agitated and restless. To treat underlying disorder. Unasyn is ordered with concern of aspiration/potential aspiration pneumonia. Patient not able to follow commands and swallow, speech therapy ordered. COVID-19 PCR negative. Procalcitonin 0.21. 02/26: Swallow study scheduled for today. 02/27: Swallow study was done and recommended minced and moist texture food with nectar thick liquid. Continue IV Unasyn. Urinary antigens are negative. Respiratory panel negative. 02/28: Patient is on baseline mental status. Acute encephalopathy has resolved. She has advanced dementia. 2. Recent fall with left lower leg fracture status post hemiarthroplasty on February 05: PT and OT ordered and continue 3. Bilateral pleural effusion right greater than left: Echo on 02/05/2022 reported EF 50 to 55% with mild AI, normal LV systolic function. Chest x-ray and CTA individually reviewed shows moderate pleural effusion right more than left with underlying interstitial infiltrates. 4. Chronic A. fib, INR therapeutic, 2.3. On IV heparin drip interim till warfarin is on hold. IV metoprolol for rate control. 02/26: A. fib with RVR, remained tachycardic on 02/25, heart rate ranges 110s to 120s and at times 140s. The patient on amiodarone drip. 02/27: Her heart rate is still in 110s to 121 on amiodarone drip. Emadine drip converted to amiodarone oral 200 mg 3 times daily. Hypokalemia K3.0. Serum magnesium and phosphorus ordered 02/28: Current heart rate is 88 to 90/min. BP 101/52. Patient on a Medrol 200 mg 3 times daily on a slow tapering regimen. Midodrine was added last night for low BP. I talked to patient's son Mr. Abraham Parrish and gave the clinical update. He is agreeable to discharge to senior care today. 5. Other multiple comorbidities include chronic macrocytic anemia, hypertension, dyslipidemia, GERD: Patient baseline hemoglobin runs between 9 to 10 g. Most recent hemoglobin 10.2 g%. Platelet count 227,000. 02/27: Labs reviewed. Hemoglobin 9.5/30.5. Macrocytic anemia. Platelet count 203. CODE STATUS: DNR CCA, no intubation, no aggressive interventions. I talked to the patient's [id number] Mrs. Joann Parrish. Patient is DNR CC arrest no intubation, palliative care measures instituted. Earlier after discussion with patient case coordinator, the patient's family does not want hospice care. As the patient heart rate and blood pressure still not controlled on amnio drip optimally, blood pressure sometimes drops to 80s and heart rate in 120s therefore recommended hospice care. Her [id number]-[id number]-tdp will talk to her and will let us know. Total time of the visit including total time spent in counseling or coordination of care, (more than 50% of the total time, spent in obtaining medical inform ation from nurses and other ancillary care providers,explaining to the patient about labs, imaging, diagnosis and management of active complex medical conditions), discussion with pharmacy consultant, medical record review, review of labs and imaging is 40 minutes. Microbiology Past 72 Hours 02/25/22 05:18 Mucosa - Nasopharyngeal Respiratory Panel (PCR) - Final 02/25/22 01:20 Urine, Clean Catch Legionella Antigen - Final 02/25/22 01:20 Urine, Clean Catch Streptococcus pneumoniae Antigen (M - Final Laboratory Results 02/27/22 07:45: WBC 6.7, RBC 2.75 L, Hgb 9.5 L, Hct 30.5 L, MCV 110.9 H, MCH 34.5 H, MCHC 31.1 L, RDW Std Deviation 75.0 H, RDW Coeff of Dorota 18.7 H, Plt Count 203, MPV 9.7, Immature Gran % (Auto) 0.400, Neut % (Auto) 67.6, Lymph % (Auto) 19.9, [place] % (Auto) 7.9, Eos % (Auto) 3.6, Baso % (Auto) 0.6, Absolute Neuts (auto) 4.5, Absolute Lymphs (auto) 1.33, Nucleated RBC % 0, Anisocytosis 1+ 02/27/22 07:45: Sodium 146 H, Potassium 3.0 L, Chloride 115 H, Carbon Dioxide 25.0, Anion Gap 6, BUN 16, Creatinine 0.76, Estim Creat Clear Calc 46.77, Est GFR (MDRD) Af Amer 95, Est GFR (MDRD) Non-Af 78, BUN/Creatinine Ratio 21.1 H, Glucose 96, Calcium 7.6 L, Total Bilirubin 0.80, AST 48 H, ALT 34, Alkaline Phosphatase 212 H, Total Protein 5.0 L, Albumin 2.2 L, Globulin 2.8, Albumin/G lobulin Ratio 0.8 L Allergies/Procedures Done in Hospital Allergies meloxicam [From Mobic] Allergy (Verified 02/05/22 00:18) PT UNSURE OF REACTION amoxicillin [From Augmentin] Adverse Reaction (Verified 02/05/22 00:18) Other clavulanic acid [From Augmentin] Adverse Reaction (Verified 02/05/22 00:18) Other Type of Care/Length of Stay Estimated LOS: Convalescent Care Less Than 30 days Type of Care Needed: Skilled Rehab Potential: Good Prognosis: Good Additional Orders/Day of Discharge Day of Discharge: 02/26/22 Dietary and Speech Recommendations Dietitian Recommendations/Changes: regular diet- texture/consistency per [employer] 120mL Ensure 4x daily w/ medpass Discharge Plan Admission Admit Date/Time: 02/25/22 05:11 Primary Reason for Your Visit: Acute encephalopathy, A. fib RVR Attending Provider: Jose Luis Cloud Primary Care Provider: Michael Phillips Consulting Providers: Sierra Duran ; Trever Queen Discharge Orders/Prescriptions Prescriptions: New menthol-zinc oxide [Calmoseptine] 0.44-20.6 % Ointment 1 applic topical TID Qty: 0 0RF Protocol: *Topical Application Instructions APPLICATION INSTRUCTIONS: buttocks midodrine 5 mg Tablet 10 mg PO TIDCM Qty: 0 0RF Rx Instructions: Hold for systolic blood pressure more than 120 mmHg amoxicillin-pot clavulanate 875-125 mg tablet 1 tab PO BID 4 Days Qty: 8 0RF amiodarone 200 mg Tablet 200 mg PO TID Qty: 90 0RF Rx Instructions: 200 mg 3 times daily until 03/05/22 ,200 mg 2 times daily for 2 week, starting 03/06/22 and then 200 mg once daily to continue Continued warfarin 2 mg tablet 2 mg PO DAILY Label Comments: TAKE 1 TABLET BY MOUTH EVERY DAY fluticasone propionate 50 mcg/actuation [place],Suspension 2 spray INTRANASAL DAILY PRN (Reason: Congestion) Rx Instructions: administer into each nostril sennosides-docusate sodium [Stool Softener-Stimulant Laxat] 8.6-50 mg tablet 2 tab PO BID olanzapine 10 mg tablet 20 mg PO HS pantoprazole 40 mg tablet,delayed release (DR/EC) 40 mg PO DAILY warfarin [Jantoven] 1 mg tablet 1 mg PO 1700 alprazolam 0.25 mg Tablet 0.25 mg PO TID PRN PRN (Reason: Anxiety/Restlessness/Sleep) 3 Days Qty: 9 0RF mirtazapine 15 mg Tablet 7.5 mg PO QHS Qty: 0 0RF oxycodone 5 mg Tablet 5 mg PO Q4H PRN PRN (Reason: Pain Score 6-10) 3 Days Qty: 18 0RF oxycodone 5 mg tablet 5 mg PO Q4H PRN (Reason: pain) 3 Days Qty: 18 0RF Changed acetaminophen 500 mg Tablet 1,000 mg PO Q8H Qty: 0 0RF Held metoprolol tartrate 100 mg tablet 100 mg PO BID Hold Instructions: Hold for heart less than 60 or systolic blood pressure less than 90 mmHg. furosemide 40 mg Tablet 40 mg PO DAILY Qty: 0 0RF Hold Instructions: Hold for 1 week. Discontinued amiodarone 200 mg tablet 200 mg PO DAILY Rx Instructions: START ONCE DAILY ON 02/19/22 FOLLOWING TRANSITION OFF 200 MG BID REGIMEN. alprazolam [Xanax] 0.25 mg tablet 0.25 mg PO TID PRN (Reason: anxiety) 3 Days Qty: 9 0RF Referrals / Follow Up: Michael Phillips MD [Primary Care Provider] - Disposition Disposition (needs filled in before D/C Order can be placed): [facility] Facility
[2022-02-28] MEDS: Midodrine HCl 5 MG Tablet 10 MG PO ×2 (08:57→11:07)
--- NOTE | 2022-02-28 09:00 | PCM.DC.SUM ---
Providers Date of Admission: 02/25/22 Date of Discharge: 02/28/22 Primary Care Physician: Dr. Michael Phillips MD Consultations 02/25/22 07:00 Consult: Mortgage Loan Reviewer / Pulmonary Medicine Routine Consulting Provider: Trever Queen Reason for Consult: ? PNA, Encephalopathy, now hypotensive EMERGENT Consult: No MD Notified: Yes Date Notified: 02/25/22 Time Notified: 06:10 Method of Notification: Text Reason For Visit: ENEPHALOPATHY, SIRS Diagnosis Discharge Diagnosis (1) Acute encephalopathy: Status: Acute Code(s): G93.40 - Encephalopathy, unspecified Medications at Discharge Home Medications fluticasone propionate 50 mcg/actuation nasal spray,suspension 2 spray intranasal DAILY PRN Congestion 02/05/22 warfarin 2 mg tablet 2 mg PO DAILY blood thinner 02/05/22 metoprolol tartrate 100 mg tablet 100 mg PO BID BP 02/13/22 olanzapine 10 mg tablet 20 mg PO HS Check with primary doctor 02/13/22 pantoprazole 40 mg tablet,delayed release 40 mg PO DAILY reflux 02/13/22 sennosides 8.6 mg-docusate sodium 50 mg tablet (Stool Softener-Stimulant Laxative) 2 tab PO BID stool softeners 02/13/22 warfarin 1 mg tablet (Jantoven) 1 mg PO 1700 blood thinner 02/13/22 alprazolam 0.25 mg tablet 0.25 mg PO TID PRN PRN Anxiety/Restlessness/Sleep 3 days #9 tabs 02/24/22 furosemide 40 mg tablet 40 mg PO DAILY #0 tabs 02/24/22 acetaminophen 500 mg tablet 1,000 mg PO Q8H #0 tabs 02/26/22 menthol 0.44 %-zinc oxide 20.6 % topical ointment (Calmoseptine) 1 applic topical TID #0 grams 02/26/22 amiodarone 200 mg tablet 200 mg PO TID #90 tabs 02/28/22 amoxicillin 875 mg-potassium clavulanate 125 mg tablet 1 tab PO BID 4 days #8 tabs 02/28/22 midodrine 5 mg tablet 10 mg PO TIDCM #0 tabs 02/28/22 Hospital Course Summary of Care Provided Hospital Course: This is a 76-year-old female admitted from TCU with worsening confusion, fever. Patient had mechanical fall complicated to left femoral neck fracture status post left hemiarthroplasty on February 05 and was in TCU for rehab. 1. Acute encephalopathy, multifactorial in etiology, metabolic/infection and most important polypharmacy: Patient has a baseline history of Alzheimer's dementia with underlying behavioral disorder: Patient is being admitted in ICU. She is in hyperactive delirium, agitated and restless. To treat underlying disorder. Unasyn is ordered with concern of aspiration/potential aspiration pneumonia. Patient not able to follow commands and swallow, speech therapy ordered. COVID-19 PCR negative. Procalcitonin 0.21. 02/26: Swallow study scheduled for today. 02/27: Swallow study was done and recommended minced and moist texture food with nectar thick liquid. Continue IV Unasyn. Urinary antigens are negative. Respiratory panel negative. 02/28: Patient is on baseline mental status. Acute encephalopathy has resolved. She has advanced dementia. 2. Recent fall with left lower leg fracture status post hemiarthroplasty on February 05: PT and OT ordered and continue 3. Bilateral pleural effusion right greater than left: Echo on 02/05/2022 reported EF 50 to 55% with mild AI, normal LV systolic function. Chest x-ray and CTA individually reviewed shows moderate pleural effusion right more than left with underlying interstitial infiltrates. 4. Chronic A. fib, INR therapeutic, 2.3. On IV heparin drip interim till warfarin is on hold. IV metoprolol for rate control. 02/26: A. fib with RVR, remained tachycardic on 02/25, heart rate ranges 110s to 120s and at times 140s. The patient on amiodarone drip. 02/27: Her heart rate is still in 110s to 121 on amiodarone drip. Emadine drip converted to amiodarone oral 200 mg 3 times daily. Hypokalemia K3.0. Serum magnesium and phosphorus ordered 02/28: Current heart rate is 88 to 90/min. BP 101/52. Patient on a Medrol 200 mg 3 times daily on a slow tapering regimen. Midodrine was added last night for low BP. I talked to patient's son Mr. Abraham Parrish and gave the clinical update. He is agreeable to discharge to snf today. Warfarin was on hold since beginning. 5. Other multiple comorbidities include chronic macrocytic anemia, hypertension, dyslipidemia, GERD: Patient baseline hemoglobin runs between 9 to 10 g. Most recent hemoglobin 10.2 g%. Platelet count 227,000. 02/27: Labs reviewed. Hemoglobin 9.5/30.5. Macrocytic anemia. Platelet count 203. 02/28: Hemoglobin 8.3, platelet 185,000. Hyponatremia, hypokalemia due to IV fluid normal saline peripheral normal saline discontinued. Potassium phosphate ordered. CODE STATUS: DNR CCA, no intubation, no aggressive interventions. Palliative care I talked to the patient's son Mr. Abraham Parrish and [id number] Mrs. Joann Parrish. Patient is DNR CC arrest no intubation, palliative care measures instituted. Earlier after discussion with case aide, the patient's family does not want hospice care. Discharge medication reconciliation done. Discharge follow-up instructions completed. Home med list of oxycodone discontinued as patient did not require oxycodone while in the hospital course. She does not complain of pain and is high risk of sedation/altered mental status on opioids. Discharge process discussed with the family and all questions were answered to patient's satisfaction. Transfer to [facility] Total time spent, exact 35 minutes on discharge meds reconciliation, examination, coordination of care with nurses and ancillary staff, review of imaging and blood test and discussion with the patient on follow-up instructions. Microbiology Past 72 Hours 02/25/22 04:25 Blood Culture (Wb) - Anticubital Right Blood Culture - Preliminary No growth in 48 hours. 02/25/22 04:42 Blood Culture (Wb) - Right Hand Blood Culture - Preliminary No growth in 48 hours. 02/25/22 05:18 Mucosa - Nasopharyngeal Respiratory Panel (PCR) - Final 02/25/22 01:20 Urine, Clean Catch Legionella Antigen - Final 02/25/22 01:20 Urine, Clean Catch Streptococcus pneumoniae Antigen (M - Final Laboratory Results 02/27/22 07:45: Anisocytosis 1+ 02/27/22 07:45: Sodium 146 H, Potassium 3.0 L, Chloride 115 H, Carbon Dioxide 25.0, Anion Gap 6, BUN 16, Creatinine 0.76, Estim Creat Clear Calc 46.77, Est GFR (MDRD) Af Amer 95, Est GFR (MDRD) Non-Af 78, BUN/Creatinine Ratio 21.1 H, Glucose 96, Calcium 7.6 L, Total Bilirubin 0.80, AST 48 H, ALT 34, Alkaline Phosphatase 212 H, Total Protein 5.0 L, Albumin 2.2 L, Globulin 2.8, Albumin/Globulin Ratio 0.8 L 02/27/22 07:45: Phosphorus 1.9 L, Magnesium 2.1 02/28/22 04:15: WBC 5.2, RBC 2.40 L, Hgb 8.3 L, Hct 27.0 L, MCV 112.5 H, MCH 34.6 H, MCHC 30.7 L, RDW Std Deviation 76.5 H, RDW Coeff of Dorota 18.5 H, Plt Count 185, MPV 9.8, Immature Gran % (Auto) 0.200, Neut % (Auto) 58.3, Lymph % (Auto) 25.8, [place] % (Auto) 9.7, Eos % (Auto) 5.6 H, Baso % (Auto) 0.4, Absolute Neuts (auto) 3.0, Absolute Lymphs (auto) 1.33, Nucleated RBC % 0, Differential Comment SCANNED, Polychromasia 1+, Anisocytosis 2+, Macrocytosis 2+, Ovalocytes 1+, Acanthocytes (Spur) RARE 02/28/22 04:15: Sodium 148 H, Potassium 3.0 L, Chloride 118 H, Carbon Dioxide 24.0, Anion Gap 6, BUN 14, Creatinine 0.70, Estim Creat Clear Calc 46.77, Est GFR (MDRD) Af Amer 104, Est GFR (MDRD) Non-Af 86, BUN/Creatinine Ratio 20.1 H, Glucose 93, Calcium 7.2 L Physical Exam Narrative Patient heart rate is 88/min, BP 101/52. Last night started on midodrine for low blood pressure. Blood mixed with urine in Sosa catheter tube General: Awake, disoriented. Pleasantly confused. Wants to go home. HEENT: Atraumatic, PERRLA, EOMI, Normocephalic Oral: Oral mucosa moist. Delayed swallow function Neck: Supple, No JVD, Negative Carotid Bruits Lungs: Air entry diminished in bilateral lung bases. No crepitation/rhonchi Cardiovascular: A. fib with RVR, normal S1, Normal S2, No murmurs Abdomen: Bowel Sounds Present, Soft, Non Tender, Non-Distended : Dark red color urine, hematuria sediment. Sosa catheter inserted on 02/26. No renal angle or suprapubic tenderness. Extremities: Bilateral 1+ pitting edema, Capillary Refill Less than 3 Seconds Skin: No rashes, No breakdown Musculoskeletal: No Tenderness to Palpation of Joints or Extremities Neurological: Neuro exam unobtainable. Psych/Mental Status: Amnesia, dementia. Disoriented Weight / BMI Weight Weight: 169 lb 8.568 oz Body Mass Index (BMI) 23.1 ABG / Lab / Microbiology Data Result Diagrams: 02/28/22 04:15 02/28/22 04:15 Laboratory: Laboratory Results - last 24 hr 02/27/22 07:45: Anisocytosis 1+ 02/27/22 07:45: Sodium 146 H, Potassium 3.0 L, Chloride 115 H, Carbon Dioxide 25.0, Anion Gap 6, BUN 16, Creatinine 0.76, Estim Creat Clear Calc 46.77, Est GFR (MDRD) Af Amer 95, Est GFR (MDRD) Non-Af 78, BUN/Creatinine Ratio 21.1 H, Glucose 96, Calcium 7.6 L, Total Bilirubin 0.80, AST 48 H, ALT 34, Alkaline Phosphatase 212 H, Total Protein 5.0 L, Albumin 2.2 L, Globulin 2.8, Albumin/Globulin Ratio 0.8 L 02/27/22 07:45: Phosphorus 1.9 L, Magnesium 2.1 02/28/22 04:15: WBC 5.2, RBC 2.40 L, Hgb 8.3 L, Hct 27.0 L, MCV 112.5 H, MCH 34.6 H, MCHC 30.7 L, RDW Std Deviation 76.5 H, RDW Coeff of Dorota 18.5 H, Plt Count 185, MPV 9.8, Immature Gran % (Auto) 0.200, Neut % (Auto) 58.3, Lymph % (Auto) 25.8, [place] % (Auto) 9.7, Eos % (Auto) 5.6 H, Baso % (Auto) 0.4, Absolute Neuts (auto) 3.0, Absolute Lymphs (auto) 1.33, Nucleated RBC % 0, Differential Comment SCANNED, Polychromasia 1+, Anisocytosis 2+, Macrocytosis 2+, Ovalocytes 1+, Acanthocytes (Spur) RARE 02/28/22 04:15: Sodium 148 H, Potassium 3.0 L, Chloride 118 H, Carbon Dioxide 24.0, Anion Gap 6, BUN 14, Creatinine 0.70, Estim Creat Clear Calc 46.77, Est GFR (MDRD) Af Amer 104, Est GFR (MDRD) Non-Af 86, BUN/Creatinine Ratio 20.1 H, Glucose 93, Calcium 7.2 L Microbiology: Microbiology 02/25/22 04:25 Blood Culture (Wb) - Anticubital Right Blood Culture - Preliminary No growth in 48 hours. 02/25/22 04:42 Blood Culture (Wb) - Right Hand Blood Culture - Preliminary No growth in 48 hours. 02/25/22 05:18 Mucosa - Nasopharyngeal Respiratory Panel (PCR) - Final 02/25/22 01:20 Urine, Clean Catch Legionella Antigen - Final 02/25/22 01:20 Urine, Clean Catch Streptococcus pneumoniae Antigen (M - Final Meaningful Use Info Meaningful Use Diagnoses (Choose all that apply): None applicable Discharge Plan Admission Admit Date/Time: 02/25/22 05:11 Primary Reason for Your Visit: Acute encephalopathy, A. fib RVR Attending Provider: Jose Luis Cloud Primary Care Provider: Michael Phillips Consulting Providers: Sierra Duran ; Trever Queen Discharge Orders/Prescriptions Prescriptions: New menthol-zinc oxide [Calmoseptine] 0.44-20.6 % Ointment 1 applic topical TID Qty: 0 0RF Protocol: *Topical Application Instructions APPLICATION INSTRUCTIONS: buttocks midodrine 5 mg Tablet 10 mg PO TIDCM Qty: 0 0RF Rx Instructions: Hold for systolic blood pressure more than 120 mmHg amoxicillin-pot clavulanate 875-125 mg tablet 1 tab PO BID 4 Days Qty: 8 0RF amiodarone 200 mg Tablet 200 mg PO TID Qty: 90 0RF Rx Instructions: 200 mg 3 times daily until 03/05/22 ,200 mg 2 times daily for 2 week, starting 03/06/22 and then 200 mg once daily to continue Continued fluticasone propionate 50 mcg/actuation [place],Suspension 2 spray INTRANASAL DAILY PRN (Reason: Congestion) Rx Instructions: administer into each nostril sennosides-docusate sodium [Stool Softener-Stimulant Laxat] 8.6-50 mg tablet 2 tab PO BID olanzapine 10 mg tablet 20 mg PO HS pantoprazole 40 mg tablet,delayed release (DR/EC) 40 mg PO DAILY alprazolam 0.25 mg Tablet 0.25 mg PO TID PRN PRN (Reason: Anxiety/Restlessness/Sleep) 3 Days Qty: 9 0RF Changed acetaminophen 500 mg Tablet 1,000 mg PO Q8H Qty: 0 0RF Held warfarin 2 mg tablet 2 mg PO DAILY Hold Instructions: Hold for hematuria/bleeding. Hold for INR more than 2.5 Label Comments: TAKE 1 TABLET BY MOUTH EVERY DAY metoprolol tartrate 100 mg tablet 100 mg PO BID Hold Instructions: Hold for heart less than 60 or systolic blood pressure less than 90 mmHg. warfarin [Jantoven] 1 mg tablet 1 mg PO 1700 Hold Instructions: Hold hold for hematuria/bleeding. Hold for INR more than 2.5. furosemide 40 mg Tablet 40 mg PO DAILY Qty: 0 0RF Hold Instructions: Hold for 1 week. Discontinued amiodarone 200 mg tablet 200 mg PO DAILY Rx Instructions: START ONCE DAILY ON 02/19/22 FOLLOWING TRANSITION OFF 200 MG BID REGIMEN. mirtazapine 15 mg Tablet 7.5 mg PO QHS Qty: 0 0RF oxycodone 5 mg Tablet 5 mg PO Q4H PRN PRN (Reason: Pain Score 6-10) 3 Days Qty: 18 0RF alprazolam [Xanax] 0.25 mg tablet 0.25 mg PO TID PRN (Reason: anxiety) 3 Days Qty: 9 0RF oxycodone 5 mg tablet 5 mg PO Q4H PRN (Reason: pain) 3 Days Qty: 18 0RF Referrals / Follow Up: Michael Phillips MD [Primary Care Provider] - Disposition Disposition (needs filled in before D/C Order can be placed): [facility] Facility Charges/Coding Visit Charges Inpatient E&M: 83747 Disch Hosp
[2022-02-28 09:47] LABS: International Normalized Ratio 2.6; Prothrombin Time (Protime)PT. 27.2 SECONDS (11.7-14.9)
[2022-02-28] MEDS: Potassium Chloride Oral Tablet 20 MEQ 40 MEQ PO ×2 (10:43→12:03)
== END 2022-02-28 12:45 | DRG 177 ==
LOC: ED 05:34 → ICU 06:17
PROVIDERS: Admitting Provider Family Medicine; Emergency Provider Emergency Medicine; PCP Family Medicine; Visit Provider Internal Medicine
DX: J69.0 Pneumonitis due to inhalation of food and vomit (principal); G92.8 Other toxic encephalopathy; E87.1 Hypo-osmolality and hyponatremia; F02.81 Dementia in other diseases classified elsewhere, unspecified severity, with behavioral disturbance; J90 Pleural effusion, not elsewhere classified; F05 Delirium due to known physiological condition; G30.9 Alzheimer's disease, unspecified; I95.9 Hypotension, unspecified; I48.0 Paroxysmal atrial fibrillation; E55.9 Vitamin D deficiency, unspecified; I10 Essential (primary) hypertension; K21.9 Gastro-esophageal reflux disease without esophagitis; E78.5 Hyperlipidemia, unspecified; D53.9 Nutritional anemia, unspecified; E87.6 Hypokalemia; F41.9 Anxiety disorder, unspecified; W19.XXXD Unspecified fall, subsequent encounter; S72.012D Unspecified intracapsular fracture of left femur, subsequent encounter for closed fracture with routine healing; F32.A Depression, unspecified; T40.2X5A Adverse effect of other opioids, initial encounter; T42.4X5A Adverse effect of benzodiazepines, initial encounter; T43.595A Adverse effect of other antipsychotics and neuroleptics, initial encounter; R09.02 Hypoxemia; R29.6 Repeated falls; Z66 Do not resuscitate; Z51.5 Encounter for palliative care; Z91.14 Patient's other noncompliance with medication regimen; Z79.01 Long term (current) use of anticoagulants; Z79.891 Long term (current) use of opiate analgesic; Z79.899 Other long term (current) drug therapy
CPT/HCPCS: 70450; 71250; 74230; 80048; 80053; 80076; 82140; 82607; 82746; 83605; 83735; 83880; 84100; 84145; 85025; 85610; 85730; 87040; 87426; 87449; 87633; 87635; 92526; 92610; 92611; 93005; 97802; 99285; J7030; J7040; J7050; A4216; J0295; J2405; U0003; U0005